=== PATIENT | female | born 1945 | race Caucasian/White ===

== ENCOUNTER 2018-09-12 18:27 | Inpatient (IN) | payer MEDICARE ==
[~2018-09-12] VITALS: Ht 157.5 cm; Wt 116.1 kg
--- OUTSIDE RECORDS SUMMARY | ~2018-09-12 | XMS | Clinical Summary ---
Demographics + + + | Address | [address] | | | [place] [address] | + + + | Home Phone | | + + + | Preferred Language | Unknown | + + + | Marital Status | Unknown | + + + | Episcopal Affiliation | Unknown | + + + | Race | Unknown | + + + | Ethnic Group | Unknown | + + + Author + + + | Organization | Unknown | + + + | Address | Unknown | + + + | Phone | Unavailable | + + + Care Team Providers + +------+ + | Care Biopharmaceutical Rep Name | Role | Phone | + +------+ + PP | Unavailable | + +------+ + Source Comments BEAU is fully live on both [facility] Amb[facility] and [facility] InPatient.[facility] Allergies Not on File Current Medications [...]
--- OUTSIDE RECORDS SUMMARY | ~2018-09-12 | XMS | Clinical Summary ---
Demographics + + + | Address | [address] | | | [place] [address] | + + + | Home Phone | | + + + | Preferred Language | Unknown | + + + | Marital Status | Unknown | + + + | Shinto Affiliation | Unknown | + + + | Race | Unknown | + + + | Ethnic Group | Unknown | + + + Author + + + | Organization | Unknown | + + + | Address | Unknown | + + + | Phone | Unavailable | + + + Care Team Providers + +------+ + | Care Umbrella Mender Name | Role | Phone | + +------+ + PP | Unavailable | + +------+ + Source Comments BEAU is fully live on both [facility] and [facility] InPatient.[facility] Allergies Not on File Current Medications [...]
--- OUTSIDE RECORDS SUMMARY | ~2018-09-12 | XMS | Clinical Summary ---
Demographics + + + | Address | [address] | | | [place] [address] | + + + | Home Phone | | + + + | Preferred Language | Unknown | + + + | Marital Status | Unknown | + + + | Muslim Affiliation | Unknown | + + + | Race | Unknown | + + + | Ethnic Group | Unknown | + + + Author + + + | Organization | Unknown | + + + | Address | Unknown | + + + | Phone | Unavailable | + + + Care Team Providers + +------+ + | Care Before And After School Daycare Worker Name | Role | Phone | + +------+ + PP | Unavailable | + +------+ + Source Comments BEAU is fully live on both [facility] Ambulatory and [facility] InPatient.[facility] Allergies Not on File Current Medications Not [...]
--- OUTSIDE RECORDS SUMMARY | ~2018-09-12 | XMS | Clinical Summary ---
Demographics + + + | Address | [address] | | | [place] [address] | + + + | Home Phone | | + + + | Preferred Language | Unknown | + + + | Marital Status | Unknown | + + + | Adventist Affiliation | Unknown | + + + | Race | Unknown | + + + | Ethnic Group | Unknown | + + + Author + + + | Author | [facility] | + + + | Organization | [facility] | + + + | Address | Unknown | + + + | Phone | Unavailable | + + + Support + + + + + | Name | Relationship | Address | Phone | + + + + + | No,Contact | ECON | [address] | | | | | [place] | | | | | [phone] | | + + + + + Care Team Providers + +------+ + | Care Personal Protection Specialist Name | Role | Phone | + [...] MA - MODA | MA - | [phone] | Medica | | | | | [...] | Self | [birth year] | Home: | [facility] | | | al/Fam | | 1945 | [phone] | [place] | | | [place] | | | [phone] | [phone] | + +--------+ +--------+ + +"
--- OUTSIDE RECORDS SUMMARY | ~2018-09-12 | XMS | Clinical Summary ---
Demographics + + + | Address | [address] | | | [place] [address] | + + + | Home Phone | | + + + | Preferred Language | Unknown | + + + | Marital Status | Unknown | + + + | Taoist Affiliation | Unknown | + + + | Race | Unknown | + + + | Ethnic Group | Unknown | + + + Author + + + | Author | [facility] | + + + | Organization | [facility] | + + + | Address | Unknown | + + + | Phone | Unavailable | + + + Support + + + + + | Name | Relationship | Address | Phone | + + + + + | No,Contact | ECON | [address] | | | | | [place] | | | | | [phone] | | + + + + + Care Team Providers + +------+ + | Care Home Health Travel Pt Name | Role | Phone | + [...] MA - MODA | MA - | [phone] | Medica | | | | | [...] | Self | [birth year] | Home: | [facility] | | | al/Fam | | 1945 | [phone] | [place] | | | [place] | | | [phone] | [phone] | + +--------+ +--------+ + +"
--- OUTSIDE RECORDS SUMMARY | ~2018-09-12 | XMS | Clinical Summary ---
Demographics + + + | Address | [address] | | | [place] [address] | + + + | Home Phone | | + + + | Preferred Language | Unknown | + + + | Marital Status | Unknown | + + + | Anglican Affiliation | Unknown | + + + | Race | Unknown | + + + | Ethnic Group | Unknown | + + + Author + + + | Author | [facility] | + + + | Organization | [facility] | + + + | Address | Unknown | + + + | Phone | Unavailable | + + + Support + + + + + | Name | Relationship | Address | Phone | + + + + + | No,Contact | ECON | [address] | | | | | [place] | | | | | [phone] | | + + + + + Care Team Providers + +------+ + | Care Telegraphic Typewriter Mechanic Name | Role | Phone | + [...] MA - MODA | MA - | [phone] | Medica | | | | | [...] | Self | [birth year] | Home: | [facility] | | | al/Fam | | 1945 | [phone] | [place] | | | [place] | | | [phone] | [phone] | + +--------+ +--------+ + +"
[~2018-09-12 18:27] MED LIST: ADVAIR 500-501 EACH INH; ALLOPURINOL100 MG PO; BACTRIM DS TAB1 EACH PO; CHLORTHALIDONE50 MG PO; HYDROXYZINE PAM25 MG PO; KEFLEX500 MG PO; LEVOTHYROXINE25 MCG PO; MELATONIN5 M2 PO; METOPROLOL TART25 MG PO; OXYBUTYNIN CHLOR5 MG PO; POTASSIUM CHLO10 MEQ PO; PROAIR HFA8.5 GM INH; SENTRY SENIOR1 EAC2 PO; TORSEMIDE10 MG PO
--- NOTE | 2018-09-13 00:30 | NUR ---
PT ARRIVED TO THE UNIT FROM THE ED ON STRETCHER. PT AMBULATED FROM STRETCHER TO HOSPITAL BED IN ROOM. PT ON 2LNC, O2 SAT WNL. PT DENIES SOB OR CHEST PAIN. ISELA BRYANT, ISELA CAPONE, AND QUALITY ASSURANCE CALIBRATOR [place] ALSO IN ROOM HELPING TO ORIENT PT TO ROOM. VSS. IV FLUIDS PRIMED AND HUNG BY ISELA BRYANT AND ESTELITA. THIS RN IN ROOM TO COMPLETE ADMIT.
--- NOTE | 2018-09-13 01:30 | NUR ---
ASSESSMENT COMPLETE, SEE INTERVENTION FOR DETAILED DOCUMENTATION. PT A/O, DENIES PAIN. VSS, 2LNC IN PLACE. PT DENIES SOB OR CHEST PAIN. IV FLUIDS INFUSING PER MD ORDERS, SITE WNL. PT NPO, BOWEL TONES ACTIVE, NO NAUSEA. GONZALEZ CATHETER IN PLACE, CONCENTRATED, ORANGE URINE NOTED. RECENT 350 OUTPUT. PT DENIES FURTHER NEEDS, CALL LIGHT IN REACH.
--- NOTE | 2018-09-13 02:25 | NUR ---
PT AT THIS TIME HAS SOB. HER CRACKLES IN HER BASES HAVE NOW PROGRESSED TO THE MIDDLE LOBE. RR IS IN THE UPPER 20'S -MID 30'S. BNP 3070. MD VALENTINO WAS CALLED AND ORDER FOR 20MG IV LASIX WAS OBTAINED. ALSO HER FLUIDS ARE RUNNING AT KVO AT THIS TIME. WILL CONTINUE TO MONITOR CRACKLES IN LUNGS AND KEEP AN EYE ON HER K+.
--- NOTE | 2018-09-13 02:50 | NUR ---
SCHEDULED ONE TIME DOSE LASIX GIVEN. RR IN LOW TO MID 20'S. PT RESTING IN BED, EYES CLOSED. NO APPARENT DISTRESS NOTED. PT EASILY AWOKEN, BUT QUICKLY WENT BACK TO SLEEP. NO FURTHER NEEDS, CALL LIGHT IN REACH.
--- NOTE | 2018-09-13 04:45 | NUR ---
ASSESSMENT COMPLETE. PT REPORTS MILD SOB, PT REPOSITIONED IN BED WITH HELP FROM ESTELITA WEISS. HOB REMAINS ELEVATED PER MD ORDERS. RR VARIES BETWEEN LOW TO MID 20'S. OCCASIONALY WILL GO INTO UPPER 20'S. ORACLE PROGRAMMER ANALYST AGREED THAT NO DISTRESS WAS NOTED AND THAT CHICHO IS ALREADY AWARE PT'S RR VARIED IN THE ED WELL. PT DENIES CHEST PAIN. IV FLUIDS INFUSING AT 30MLS TKO, CRACKLES NOTED IN BLL AND PARTIALLY IN LEFT MIDDLE LOBE. CATHETER EMPTIED BY THIS RN. NO FURTHER NEEDS, CALL LIGHT IN REACH.
--- NOTE | 2018-09-13 06:00 | NUR ---
PT RESTING IN BED, 2LNC IN PLACE. NO DISTRESS NOTED. EYES CLOSED. CATHETER BAG EMPTIED, I&O'S COLLECTED. ROOM TIDED. CALL LIGHT IN REACH.
--- NOTE | 2018-09-13 06:47 | NUR ---
PT ARRIVED TO THE UNIT FROM THE ED AT 0030. PT IS A/O, NO PAIN THIS SHIFT. VSS, 2LNC IN PLACE. RR IN MID TO UPPER 20'S. CRACKLES IN BLL. ORDERS TO KEEP HOB ELEVATED. D5LR ORIGINALLY ORDERED FOR 85MLS/HR, NOW ORDERED TKO DUE TO COUGHING AND CRACKLES. PT NPO, BOWEL TONES ACTIVE, NO NAUSEA THIS SHIFT. PT VOIDING QS URINE, NO BM. CATHETER IN PLACE. PLAN IS FOR SURGERY. PT USES CALL LIGHT APPROPERIATELY.
--- NOTE | 2018-09-13 07:57 | EKG ---
[facility] [address] [place] [address] Signed Normal sinus rhythm Low voltage QRS Cannot rule out Anteroseptal infarct (cited on or before 15-MAY-2016) Abnormal ECG When compared with ECG of 15-MAY-2016 18:18, Questionable change in initial forces of Anteroseptal leads Confirmed by JAY JAY EDWARDS MD ([id number]) on 09/13/2018 7:57:26 AM Electronically Signed By: JAY JAY EDWARDS MD 09/13/18 0757 PATIENT NAME: MICHELLE MYRICK Electrocardiogram DATE OF : 49 PHYSICIAN: JAY JAY EDWARDS MD REPORT #: [id number] REPORT IS CONFIDENTIAL AND NOT TO BE RELEASED WITHOUT AUTHORIZATION
--- NOTE | 2018-09-13 08:20 | NUR ---
PT ABLE TO BRUSH OWN TEETH WHEN GIVEN SUPPLIES, PT ALSO WASHED HANDS AND FACE WITH WARM WASH CLOTH. PT DENIES PAIN, NAUSEA, AND SOB AT THIS TIME. PT REQUESTS TO HAVE BED PUT INTO SITTING POSITION. VITALS WNL. PT ALERT AND ORIENTED, COOPERATIVE.
--- NOTE | 2018-09-13 10:00 | NUR ---
PT SITTING UP IN BED TALKING ON THE PHONE, DAUGHTER IS AT THE BEDSIDE, AND TV IS ON. PT IS ALERT AND ORIENTED X4, COOPERATIVE.
--- NOTE | 2018-09-13 10:59 | NUR ---
ORDER IN PLACE FOR HOSPITALIST CONSULT, IS AWARE.
--- NOTE | 2018-09-13 12:15 | NUR ---
PATIENT IS WITH STAFF AND FAMILY. IS SCHEDULED FOR OR LATER TODAY. WILL SEE LATER.
--- NOTE | 2018-09-13 14:13 | NUR ---
IV SITES INTACT, NO SWELLING OR REDNESS NOTED, PT DENIES PAIN WITH FLUSH OR INFUSION OF FLUIDS. PT IS ALERT AND ORIENTED X4 SITTING UP IN BED WITH FAMILY AT THE BEDSIDE. PT DENIES PAIN, NAUSEA, AND SOB AT THIS TIME.
--- NOTE | 2018-09-13 14:48 | NUR ---
PT UP TO CHAIR FROM BED WITH TWO PERSON ASSIST. PT AWAKE AND ALERT X4, FULLY COOPERATIVE WITH TRANSFER. PT REPORTS "THAT FEELS MUCH BETTER". PT VITALS WNL. PT DENIES PAIN, NAUSEA, AND SOB AT THIS TIME. ALL LINENS ON BED CHANGED. PT HAS CALL LIGHT WITHIN REACH. PT SANTA ROOM AIR AT THIS TIME O2 SATS REMAIN MID 90'S.
--- NOTE | 2018-09-13 16:03 | NUR ---
PT STILL SITTING UP IN CHAIR, SANTA WELL. TALKING ON THE HER CELL PHONE AND WATCHING TV.
[2018-09-13] MEDS ORDERED: ATENOLOL-CHLOR1 EAC1 PO (17:28)
[2018-09-13] MEDS ORDERED: ADVAIR 250-501 EACH INH (17:29)
--- NOTE | 2018-09-13 17:30 | NUR ---
PT TRANSFERED BACK TO BED FROM CHAIR WITH TWO PERSON ASSIST. PT IS STEADY ON FEET, BUT HAS DIFFICULTY STANDING UP FROM CHAIR. MELL CARE AND GONZALEZ CATH CARE DONE. PARTIAL BEDBATH DONE NEW GOWN PLACED. PT HAS SOME SLIGHTLY RED AREAS UNDER BREASTS AND SKIN FOLDS, NYSTATIN ORDERED PER .
[2018-09-13] MEDS ORDERED: VITAMIN D5000 UNIT PO (18:04)
[2018-09-13] MEDS ORDERED: ZYRTEC10 MG PO (18:04)
--- NOTE | 2018-09-13 18:05 | NUR ---
MED REC COMPLETE
--- NOTE | 2018-09-13 18:06 | NUR ---
PT SITTING UP IN BED EATING CLEAR LIQUID TRAY AT THIS TIME.
--- NOTE | 2018-09-13 20:00 | NUR ---
RECEIVED REPORTA AT 1900, FOUND PT IN BED RESTING AT FIRST THEN TALKING ON THE PHONE WITH FAMILY. PT DENIED SOB EVEN THOUGH CRACKLES ARE STILL PRESENT BILATERALLY IN THE BASES. PT DENIED ABD PAIN. ABD SOUNDS ARE PRESENT. ABD IS SOFT TO TOUCH. URINE OUTPUT IS ADEQUATE, V/S OVERALL ARE ACCEPTABLE. NO NEW CONCERNS NOTED AT THIS TIME.
--- NOTE | 2018-09-13 22:00 | NUR ---
PT IS WATCHING TV. NO CHANGE IN PT STATUS SINCE LAST NOTE. NO NEW CONCERNS NOTED.
--- NOTE | 2018-09-13 23:40 | NUR ---
PAIN IS BETTER STATED BY PT, PT HAD A HEADACHE EARLIER FOR WHICH SHE RECEIVED 650MG PO PRN TYLENOL. PT ALSO SIGNED CONSENT FOR SX. CONSENT IS ON CHART. NO NEW CONCERNS NOTED SO FAR.
--- NOTE | 2018-09-14 | NUR ---
PT AT THIS TIME IS NPO. LOWER LOBES STILL HAVE CRACKLES PRESENT. UPPER LOBES ARE CLEAR. NO CHANGES IN ASSESSMENT NOTED OVERALL. PAIN IS WELL CONTROLLED WITH PRN TYLENOL.
--- NOTE | 2018-09-14 01:44 | NUR ---
PT IS SLEEPING AT THIS TIME. NO NEW CONCERNS NOTED.
--- NOTE | 2018-09-14 03:05 | NUR ---
PT IS SLEEPING AT THIS TIME. URINE OUTPUT FOR THE LAST HOUR WAS 50ML. I DID INCREASE KVO TO 85ML/HR PER ORDER. WILL WATCH [place] FOR INCREASE IN CRACKLES IN LUNG AND PT HAVING SOB.
--- NOTE | 2018-09-14 04:00 | NUR ---
PT WAS WOKEN UP FOR ASSESSMENT. ALL LOBES HAVE SOME EXPIRATORY WHEEZING PRESENT WITH THE LEFT LOWER LOBE HAVING SOME CRACKLES PRESENT. PT SO FAR SEEMS TO TOLERATE THE INCREASE IN IV FLUID RATE. WILL CONTINUE TO MONITOR. URINE OUTPUT FROM [id number] WAS 50 ML. OTHERWISE THERE ARE NO CHANGES IN STATUS FOR THIS PT. V/S ARE WDL WITH THE OCCASIONAL RR IN THE LOW 20'S.
--- NOTE | 2018-09-14 05:17 | NUR ---
PT IS AWAKE IN BED WATCHING TV. PT IS STILL TOLERATING IV FLUIDS SO FAR. NO NEW CONCERNS NOTED AT THIS TIME.
--- NOTE | 2018-09-14 06:03 | NUR ---
AT START OF SHIFT URINE OUTPUT WAS AMPLE. PT WAS MADE NPO AT 0000. AFTER THAT HER URINE OUTPUT DROPPED TO 50ML/HR. I DID INCREASE HER IV FLUIDS TO 85ML/HR AND SO FAR PT HAS BEEN TOLERATING THAT WITH REGARDS TO SOB AND CRACKLES IN HER LUNGS. I WILL CONTINUE TO MONITOR HER RESPIRATORY STATUS. PT ALSO HAD A HEADACHE AT START OF SHIFT. PRN TYLENOL WAS ADEQUATE FOR PAIN RELIEF. V/S OVERALL HAVE BEEN WDL WITH HER RR IN THE 20'S FOR THE MOST PART. ABD SOUNDS ARE PRESENT AND PT DENIES ANY ABD PAIN. NO PERIPHERAL EDEMA NOTED.
--- NOTE | 2018-09-14 08:00 | NUR ---
ASESSMENT DONE. TALKED WITH PATIENT ABOUT PLAN OF CARE FOR DAY AND PRE-OP AND POST OP CARE, IS UNDERSTANDING. IVF PATENT, GONZALEZ CATH PATENT BRIGHT YELLOW URINE NOTED. DENIES PAIN.
--- NOTE | 2018-09-14 09:00 | NUR ---
CHLORHEXIDINE SPONGE BATH GIVEN. TOLERATED WELL.
--- NOTE | 2018-09-14 10:29 | HP ---
[facility] [address], [place] [address] Signed ADMISSION DATE: 09/12/2018 REASON FOR ADMISSION: Probable sepsis related to cholecystitis and gallstones. HISTORY OF PRESENT ILLNESS: This morbidly obese 73-year-old white woman, who lives in [place] from the past 3 years, previously from [place], [place]. She moved up here because "the rent was low" and some family members were here. She presented to the emergency room having had 2 days of poor oral intake and not feeling well. She had no specific pain or other problem. She was evaluated by Dr. Brumfield, whose evaluation showed her to have elevated liver enzymes and lactic acid level elevated. Lactic acid was 2.6. Bilirubin was 5.6, AST 197, ALT 147, and alkaline phosphatase 330. Strangely, she had no abdominal tenderness particularly. She has a white count of 10.9 with hematocrit of 34.8 and a platelet count of 230,000. In addition to her morbid obesity, she is known to have COPD with home oxygen requirement. Upon consultation earlier in the evening with me, a CT scan was recommended of both chest and abdomen, though an ultrasound was performed, which had shown gallstones with some thickening of the gallbladder wall and some heterogeneous liver parenchyma without focal mass. The interpretation of the ultrasound was "indeterminate" for cholecystitis and on that basis, CT scan was performed. The CT scan that was performed did confirm an edematous gallbladder wall with thickening and mild pericholecystic fluid. The gallstones were not seen. A vague 4.4 cm hypo-attenuated area of the right hepatic lobe adjacent to the gallbladder was noted, uncertain as to the significance for possibility of early inflammatory or even abscess formation. The patient did have a hypotensive episode with systolic pressure of 97, previously normal and has been non-tachycardic. Repeat lactic acid level was found to be normal. SOCIAL HISTORY: She is accompanied by her daughter. There are other family members in the town as well. REVIEW OF SYSTEMS: Electronically Signed By: LIANNA VALENTINO MD 09/14/18 1029 PATIENT NAME: MICHELLE MYRICK HISTORY AND PHYSICAL DATE OF : 49 REPORT #: [id number] PHYSICIAN: LIANNA VALENTINO MD PCP: NO PRIMARY CARE PHYSICIAN REPORT IS CONFIDENTIAL AND NOT TO BE RELEASED WITHOUT AUTHORIZATION [facility] [address] [place] [id number] Signed She denies any shortness of breath or chest pain. She has no complaints of abdominal pain. She does not feel particularly short of breath at this time. She prefers it had to be elevated. PHYSICAL EXAMINATION: GENERAL: This is a morbidly obese, elderly woman, 73 years of age. She is impressively plethoric in her abdomen. She is not tachypneic. She is mentating well. She appears mildly jaundiced. Trachea is midline. CHEST: Shows normal respiratory excursion without tachypnea. HEART: Regular. ABDOMEN: Massively obese. There are areas of excoriation of her abdominal wall. EXTREMITIES: Lower extremities show some excoriation as well and detect no clinical evidence of deep venous thrombosis. LABORATORY STUDIES: Show white count of 10.9, hematocrit of 34.8, and platelets of 230,000. Chem profile notable for an elevated creatinine of 1.44, glucose 115, original lactic acid 2.6, repeat 0.7, and bilirubin 5.6. Liver enzymes elevated as previously noted. Lipase 6. Influenza type A and B swab were negative. ASSESSMENT AND PLAN: Strangely, the patient does not have abdominal tenderness, but does have findings suggestive of an infectious process and most likely this represents acute calculous cholecystitis despite her lack of tenderness on examination. She was admitted to the intensive care unit for further management and monitoring given her episode of hypotension. That has largely resolved. Her pressure now systolic 146. We discussed the pathophysiology of her problem. We will review further the concept of cholecystectomy. Right now, additional fluid and monitoring is necessary as well as broad-spectrum antibiotics. Review of her medications confirms that she takes albuterol, allopurinol, chlorthalidone, fluticasone, Synthroid, metoprolol, oxybutynin, and torsemide. She has undergone a 2 L crystalloid fluid bolus, which has improved her blood pressure. She likely will have a consultation with the hospitalist tomorrow as well. MD SONIYA Aviles/MODL Electronically Signed By: LIANNA VALENTINO MD 09/14/18 1029 PATIENT NAME: MICHELLE MYRICK HISTORY AND PHYSICAL DATE OF : 49 REPORT #: [id number] PHYSICIAN: LIANNA VALENTINO MD PCP: NO PRIMARY CARE PHYSICIAN REPORT IS CONFIDENTIAL AND NOT TO BE RELEASED WITHOUT AUTHORIZATION [address] [address] Signed /[id number] cc: MD Deuce Sarah DO Copies: HORACIO BRUMFIELD MD, ARIAN DO ~ Electronically Signed By: LIANNA VALENTINO MD 09/14/18 1029 PATIENT NAME: MICHELLE MYRICK HISTORY AND PHYSICAL DATE OF : 49 REPORT #: [id number] PHYSICIAN: LIANNA VALENTINO MD PCP: NO PRIMARY CARE PHYSICIAN REPORT IS CONFIDENTIAL AND NOT TO BE RELEASED WITHOUT AUTHORIZATION
--- NOTE | 2018-09-14 10:30 | NUR ---
TO OR VIA BED.
--- NOTE | 2018-09-14 12:50 | NUR ---
RETURN TO CCU FROM PACU DX S/P LAB EXPLORATION BIOPSY,OF LIVER AND POSSIBLE GALLBLADDER. UPON ENTERING ROOM 128, PATIENT IS ABLE TO ANSWER SOME QUESTION, HR-154. PATIENT DID RECIEVE ESMOLOL 10 MG IN PACU, REPEATED UPON ARRIVAL TO CCU. HR SLOWS DOWN BRIEFLY THEN TO SVT HR 150'S. DARYNDERS RECIEVED TO HANG ESMOLOL GTT TITRATE ACCORDING TO ORDERS. O2 AT 2 L NC. C/O SLIGHT SOB, O2 SAT 95%. PATIENT C/O FRAGOSO AND FEELING COLD. SEVERAL WARM BLANKETS GIVEN. GONZALEZ CATH PATENT WITH SMALL AMT OF URINE NOTED.
--- NOTE | 2018-09-14 12:56 | NUR ---
ORDERS TO GIVE ADENOCARD 6 MG IV, ATTEMPTED TO GIVE THIS MEDICATION, UNABLE RIJ KINKED. HERE AND REDRESSED SITE. AFTER RIJ REDRESSED ADENOCARD 6 MG IV REPEATED.
--- NOTE | 2018-09-14 14:00 | NUR ---
LASIX 40 MG IV GIVEN PER ORDERS.
--- NOTE | 2018-09-14 14:11 | NUR ---
DR. VALENTINO UPDATED ON PATIENT CONDITION, NO FUTHER OREDERS. DR. VALENTINO TALKING WITH PATIENT DAUGHTER VIA PHONE. PATIENT IS RESTFUL, ESMOLOL GTT DECREASED TO 25 MCK/KG/MIN. PATIENT C/O RIGHT NECK PAIN R/T RIJ SITE.
--- NOTE | 2018-09-14 14:11 | NUR ---
09/14/18 1411 MiladyYaritza 1210- PT ARRIVES TO PACU. PT HAS EYES OPEN AND IS ABLE TO FOLLOW COMMANDS. RESP EVEN. PT DENIES ANY PAIN, OR NAUSEA. PT HAS HX OF COPD AND USES 2L VIA NC HOME O2 CHRONICALLY. PT IS CURRENTLY ON 8L VIA MASK WITH AN OXYGEN SAT AT 100% ON THIS. ROSARIO MARCUS AT THE BEDSIDE AND WANTS XOPENOX GIVEN. 1211- XOPENOX GIVEN. 1213- DR. VALENTINO NOTIFIED THAT THE DRESSING IS COMING OFF OF THE CENTRAL LINE TO THE RIGHT NECK WITH A SMALL AMOUNT OF DRAINAGE AROUND THE SITE. DR. VALENTINO WANTS CHEST XRAY COMPLETED AND THEN A DRESSING CHANGE COMPLETED. IMAGING CALLED FOR CHEST XRAY. 1216- PT REPORTS SHE THINKS THE BREATHING TREATMENT IS HELPING AND STATES SHE IS BREATHING EASIER. OXYGEN SAT REMAINS HIGH 90'S TO 100% ON 8L VIA MASK. 1220- OXYGEN TURNED DOWN TO 6L VIA MASK. 1226- IMAGING IN THE ROOM TO DO CHEST XRAY. PT SAT UP IN BED. TOLERATED WELL. 1227- XRAY COMPLETED. AFTER XRAY BOARD WAS REMOVED AND PT'S HEAD OF THE BED WAS RECLINED TO ABOUT 60 DEGREES THE PT'S HR INCREASED TO THE 150'S-160'S. HR ON THE MONITOR APPEARS TO BE REGULAR IN NATURE. PT ENCOURAGED TO TAKE A COUPLE DEEP BREATHS WITH NO CHANGE IN HR. PT DENIES CHEST PAIN, SOB, DIZZINESS, DIAPHORESIS, PALPITATIONS, OR OTHER SYMPTOMS. DR. VALENTINO IS IN THE RECOVERY ROOM AND AWARE OF THIS. 1229- AMRIT FERNANDEZ CRNA CONTACTED BY WILDER MCKEON RN. ORDERED TO GIVE ESOMOL AND MAY REPEAT IN 5 MINUTES IF NECESSARY. 1230- ATTEMPTED TO RECEIVE ESOMOL OUT OF PACU PYXIS. THIS MEDICATION IS NOT IN THIS PYXIS, WILDER MCKEON RN IS RECEIVING THE MEDICATION FROM ANOTHER PYXIS. 1232- RT CALLED TO THE BEDSIDE. 1233- RT AT THE BEDSIDE. 1235- PT'S HR ATTEMPTS TO CONVERT ON IT'S OWN BUT INCREASES BACK TO THE 150'S-160'S. 1237- ESOMOL 10 MG GIVEN IV. 1238- PT'S HR DECREASED TO 98 AND IS IN A NSR. HR THEN INCREASES BACK TO THE 150'S. DR. VALENTINO ON THE PHONE WITH DR. EDWARDS. 1241- DR. EDWARDS WANTS TO SEE THE PT IN CCU. DR. VALENTINO WANTS PT TAKEN TO CCU. PT REMAINS ALERT AND ORIENTED. PT CONTINUES TO DENY ANY CHEST PAIN, SOB, DIAPHORESIS, DIZZINESS, NAUSEA, OR OTHER SYMPTOMS. PT WAS TRANSPORTED ON THE MONITOR WITH RT, DR. VALENTINO, AND WILDER MCKEON, ISELA AT THE BEDSIDE. 1245- PT'S HR REMAINS IN THE 150'S. PT GIVEN ANOTHER DOSE OF ESOMOL WITH DR. VALENTINO AT THE BEDSIDE. PT'S HR DECREASES SLIGHTLY TO THE 110'S, BUT INCREASES BACK TO THE 150'S RIGHT AWAY. 6446- ISELA LOVELACE AT THE BEDSIDE. REPORT GIVEN AND CARE HANDED OVER TO HER. DR. EDWARDS AT THE BEDSIDE. PT REMAINS ASYMPTOMATIC AND ALERT.
--- NOTE | 2018-09-14 14:47 | NUR ---
MORPHINE 2 MG IV GIVEN FOR COMFORT AND FRAGOSO.
--- NOTE | 2018-09-14 16:00 | NUR ---
ASSESSMENT DONE. EANS PAIN AT THIS TIME. LAB SITE W/O DISCHARGE, STERI STRIPS OVER SITE. PATIENT STATES SHE FEELS BETTER NOW.
--- NOTE | 2018-09-14 16:56 | NUR ---
TAKING SIP OF CLEAR LIQUIDS, DENIES NAUSEA. IS AWAKE. VISITING WITH FAMILY MEMBERS.
--- NOTE | 2018-09-14 17:30 | NUR ---
ESMOLOL GTT OFF. TOOK CLEAR LIQUIDS FAIR.
--- NOTE | 2018-09-14 18:45 | NUR ---
UPDATE TO DR. EDWARDS AND DR. GE VIA PHONE. ORDERS RECIEVED. TYLENOL 650 MG PO GIVEN, ATENOLOL 50 MG PO GIVEN. IVF HUNG AT 75 ML/HR.
--- NOTE | 2018-09-14 19:29 | NUR ---
REPORT TO NEXT SHIFT.
--- NOTE | 2018-09-14 19:44 | NUR ---
REPORT RC'D FROM DAY SHIFT NURSE [place]. REPORTS PT OFF ESMOLOL GTT AND TOLERATING WELL. PT TALKING ON THE PHONE AND WATCHING TV.
--- NOTE | 2018-09-14 20:30 | NUR ---
AAOX4 AND RESPONDING APPROPRIATELY. SINUS RHYTHM ON MONITOR, ESMOLOL GTT DC'D AT 1730. EXPIRATORY WHEEZE THROUGHOUT ALL LUNG OQUENDO, BUL TIGHT, BLL DIM, NEB TREATMENT GIVEN, PT STATES IMPROVEMENT. SURGICAL SITES COVERED WITH STERI STRIPS, SMALL AMOUNT OF CRUSTING, NO REDNESS, EDEMA, OR WARMTH. BOWEL TONES ACTIVE X4, DENIES NAUSEA. GONZALEZ CATH IN PLACE DRAINING [place] URINE, CATH CARE COMPLETED. SCD IN PLACE. PT C/O 12/25 GENERALIZED PAIN "SINCE SURGERY," 2 MG IV MORPHINE GIVEN, REPORTS IMPROVEMENT IN PAIN. PM CARE COMPLETED. NYSTATIN CREAM AND POWDER APPLIED TO REDDENED AREAS. UPDATED PLAN OF CARE. EDUCATION PROVIDED ON SAFETY, FALL PREVENTION, AND PAIN MANAGEMENT. PT VERBALIZED UNDERSTANDING AND AGREEABLE. DENIES OTHER NEEDS. CALL LIGHT WITHIN REACH.
--- NOTE | 2018-09-14 21:30 | NUR ---
PT REQUESTING PRN NEB FOR MILD SO, R/T IN ROOM TO ADMINISTER. NO INCREASED WOB OR RR NOTED. CENTERAL LINE INFUSING D5LR @85 ML/HR, OTHER LUMENS HEPARIN LOCKED AT THIS TIME. WILL CONTINUE TO MONITOR.
--- NOTE | 2018-09-14 22:31 | NUR ---
PT RESTING IN BED WITH EYES CLOSED, RESPIRATIONS EVEN AND UNLABORED, NO ACUTE DISTRESS NOTED. 99% ON 2L NC, RR 18, HR 76.
--- NOTE | 2018-09-15 | NUR ---
PT DROWSY BUT AWAKENS EASILY. SINUS RHYTHM ON MONITOR WITH HR IN 70'S. BUL CLEAR AND BLL DIM, RR 18, 98% ON 1L. SURGICAL SITES UNCHANGED. BOWEL TONES ACTIVE. GONZALEZ CATH DRAINING OSWALDO URINE. SCD IN PLACE. IV SITE PATENT AND WNL. RIJ INFUSING D5LR @ 85 MLS/HR, OTHER LUMENS REMAIN HEPARIN LOCKED, DRESSING INTACT.
--- NOTE | 2018-09-15 02:37 | NUR ---
URINE OUTPUT NOTED TO DECREASE, TOTAL 4 HOUR OUTPUT 75 MLS. PER WRITTEN INSTRUCTIONS TO NOTIFY PROVIDER FOR OUTPUT LESS THAN 150 MLS IN 4 HOURS, DR. EDWARDS NOTIFIED. NEW ORDER FOR 20 MG IV LASIX ONCE, READ BACK AND VERIFIED.
--- NOTE | 2018-09-15 03:12 | NUR ---
LASIX GIVEN. PT REQUESTING WARM BLANKET, PROVIDED.
--- NOTE | 2018-09-15 04:00 | NUR ---
DROWSY BUT AWAKENS EASILY. DENIES PAIN. DENIES SOB. EXPIRATORY WHEEZE IN RUL, ISABELLA CLEAR, CRACKLES TO BLL. SINUS RHYTHM WITH HR IN 60'S. INCREASED URINE OUTPUT AFTER LASIX DOSE.
--- NOTE | 2018-09-15 05:35 | NUR ---
PT REQUESTING LOTION FOR BACK, APPLIED. PT REPOSITIONED AND ASSESSED FOR PAIN. DENIES ADDITIONAL NEEDS. CALL LIGHT WITHIN REACH.
--- NOTE | 2018-09-15 06:25 | NUR ---
PT RESTED FOR MOST OF NIGHT WITH MINIMAL INTERVENTIONS NEEDED. C/O OF GENERALIZED PAIN AT BEGINNING OF SHIFT WELL MANAGED WITH SINGLE DOSE OF 2MG IV MORPHINE, PT DENIED NEED FOR PAIN MEDICATION AFTER DOSE. HR HAS BEEN WELL MANAGED SINCE DC OF ESMOLOL GTT, HR 60-70'S WITH NO SVT. CRACKLES TO BLL, NEBS GIVEN, OXYGEN SATURATION 99-100% ON 1L, RR 18-20. TOLERATING CLEAR LIQUIDS, NO NAUSEA, BOWEL TONES ACTIVE. SURGICAL SITES UNCHANGED, STERI STRIPS IN PLACE WITH DRY DRAINAGE. URINE OUTPUT DECLINED MID SHIFT, 20 MG IV LASIX GIVEN, LAST 4 HOUR URINE OUTPUT 350 MLS. CENTRAL LINE PATENT, 2 LUMENS HEPARIN LOCKED, D5LR INFUSING AT 85 MLS. C/O OF CHRONIC GENERALIZED ITCHING CONTINUES, LOTION APPLIED AND PT REPOSITIONED FREQUENTLY.
--- NOTE | 2018-09-15 07:30 | NUR ---
REPORT RECIEVED. IS SLEEPING, NO DISTRESS NOTED.
--- NOTE | 2018-09-15 08:00 | NUR ---
IS VERY DROWSY. ASSESSMENT DONE.NEB TREATMENT GIVEN. GONZALEZ CATH PATENT WITH YELLOW URINE NOTED. IVF PATENT TO [facility]. SCD'S ON. LAP SITES WITH STERI STIPS INTACT. NO DRAINAGE NOTED. DENIES PAIN. TALKED WITH PATIENT ABOUT PLAN OF CARE FOR DAY.
--- NOTE | 2018-09-15 08:30 | NUR ---
DR. EDWARDS HERE TO SEE PATIENT. NO FUTHER ORDERS AT THIS TIME.
--- NOTE | 2018-09-15 09:00 | NUR ---
SITTING UP IN BED TO TAKE CLEAR LIQ DIET. DENIES NAUSEA.
--- NOTE | 2018-09-15 09:50 | NUR ---
MAG RIDER HUNG. PLAN TO GIVE SHOWER AFTER MAG RIDER INFUSED.
--- NOTE | 2018-09-15 10:30 | NUR ---
TO SHOWER VIA SHOWER CHAIR.
--- NOTE | 2018-09-15 10:50 | NUR ---
TOLERATED SHOWER FAIR, C/O SHORTNESS OF BREATH, REQUESTING NEB TREATMENT. RESP THERAPY NOTIFIED. TO CHAIR AFTER SHOWER.
--- NOTE | 2018-09-15 11:00 | NUR ---
NEB TREATMENT GIVEN PER RT. PATIENT DAUGHTER IN ROOM.
--- NOTE | 2018-09-15 12:00 | NUR ---
REFUSING CLEAR LIQ LUNCH AT THIS TIME.
--- NOTE | 2018-09-15 12:29 | NUR ---
NO CHANGES REMAINS IN CHAIR, DAUGHTER IN ROOM.
--- NOTE | 2018-09-15 12:49 | OR ---
[facility] [address], [place] [address] Signed DATE OF OPERATION: 09/14/2018 SURGEON: Lianna Valentino MD PREOPERATIVE DIAGNOSES: 1. Morbid obesity. 2. Recent sepsis and dilated gallbladder with stones. 3. Anemia. 4. Poor peripheral access. POSTOPERATIVE DIAGNOSES: 1. Possible metastatic disease to the liver and region of gallbladder with inflammatory neoplastic process in region of gallbladder vs primary gallbladder cancer with regional metastasis. 2. likeyly malignant lesions of right lobe liver. PROCEDURES: 1. Right internal jugular central venous catheterization. 2. Laparoscopy with laparoscopic liver biopsy x2 lesions, lateral right lobe of liver and also area of gallbladder site ANESTHESIA: General endotracheal -- Laure Casillas CRNA. INDICATION: This very morbidly obese 73-year-old white woman lives in [place] and has for the past 3 years. She presented emergency room with two days of poor oral intake and not feeling well. She had no specific area of pain, however. She was evaluated by Dr. Brumfield. His evaluation showed her to have elevated liver enzymes and a lactic acid level that was elevated at 2.6, and her bilirubin was 5.6, AST 197, ALT 147, alkaline phosphatase 330. Strangely, she had no abdominal tenderness particularly. She had no complaints of pain or clinical clue to her sense of mailaise. She is not diabetic. White count was 10.9 with hematocrit of 34.8, and platelet count 230,000. She does have advanced chronic obstructive pulmonary disease with home oxygen requirement. A CT scan was obtained after gallbladder ultrasound showed some gallstones and thickening of the gallbladder wall with heterogeneous liver parenchyma, but without focal mass. Interpretation of the ultrasound was "indeterminate" for cholecystitis and on that basis, a CT scan was performed of both chest and abdomen. CT did confirm an Electronically Signed By: LIANNA VALENTINO MD 09/15/18 1249 PATIENT NAME: MICHELLE MYRICK OPERATIVE REPORT DATE OF : 49 REPORT #: [id number] PHYSICIAN: LIANNA VALENTINO MD PCP: NO PRIMARY CARE PHYSICIAN REPORT IS CONFIDENTIAL AND NOT TO BE RELEASED WITHOUT AUTHORIZATION [facility] [address], [place] [address] Signed edematous gallbladder wall with thickening and some pericholecystic fluid. The gallstones were not visualized on CT. A vague 4.4 cm hypoattenuating area of the right hepatic lobe adjacent to the gallbladder was noted, described as possible " abscess". I thought it unlikey considering her clinic appearance. The patient did have an episode of hypotension in the emergency room requiring fluid resuscitation. She was begun on antibiotics, transferred to the intensive care unit where she has been managed more fully. She has recovered essentially all of her hemodynamic parameters. Her hematocrit is now 26. She has had no overt bleeding, however. She has been made ready now for cholecystectomy and possible common duct exploration depending on clinical findings. A laparoscopic approach is anticipated though given her significant obesity and uncertainty as regards the level of her inflammation, she may require an open procedure. She and her son and daughter who attend to understand this. FINDINGS: She had poor peripheral access. On that basis, right internal jugular catheter was placed. Upon laparoscopy, there was no evidence of ascites or carcinomatosis, but there were lesions highly suspicious for metastatic or primary malignancy of the liver, particularly the right lobe. Some were separate from the area of the gallbladder fossa, one contiguous with it. The gallbladder itself was not visualized, but the area in question was markedly inflamed. Whether this was a desmoplastic response to tumor or to actual cholecystitis is uncertain. Under the circumstances of need for conversion to open operation and mindful of the possibility that this represents primary gallbladder cancer with local and regional metastatic disease, connversion to open operation was not undertaken at this time, but biopsies of the liver lesions was undertaken. DESCRIPTION OF PROCEDURE: The patient was brought to the operating room, given a general endotracheal anesthetic. Attempts by the senior bioinformatics scientist to place an additional IV were unsuccessful due to poor peripheral access. On that basis, the right internal jugular central venous catheter was planned. I had discussed this with the family and the patient prior to surgery. The neck was turned to the left and the right neck and subclavian areas bilaterally prepared with a chlorhexidine solution and draped sterilely. Using a Seldinger technique on 1st pass, the right internal jugular vein was easily cannulated showing dark nonpulsatile blood. A flexible J-wire was passed down the needle without problem. Ectopy was noted on the EKG. The wire was withdrawn a bit. The site was incised with an #11 blade and using the Arrow Blue Tip blue dilator, dilation gently undertaken. The previously inspected and irrigated Arrow Blue Tip triple-lumen catheter was passed over the wire without problem. Aspiration on Electronically Signed By: LIANNA VALENTINO MD 09/15/18 1249 PATIENT NAME: MICHELLE MYRICK OPERATIVE REPORT DATE OF : 49 REPORT #: [id number] PHYSICIAN: LIANNA VALENTINO MD PCP: NO PRIMARY CARE PHYSICIAN REPORT IS CONFIDENTIAL AND NOT TO BE RELEASED WITHOUT AUTHORIZATION [address] [address] Signed the distal port showed nonpulsatile bleeding. The catheter was withdrawn a bit and a gentle curl placed and secured to the skin with the enclosed collar device. An anti-infective disk was applied as was a SorbaView dressing. Plans were then made for operation. She had a very large and doughy abdominal pannus. This was prepared after evacuation of her umbilical site of considerable amount of debris. Once complete preparation was undertaken, sterile drapes were placed. Mindful as an attempt for laparoscopic cholecystectomy and common duct exploration, a supraumbilical incision was made. Dissection carried through the thick abdominal pannus. Hemostats were used to grab the fascia, which elevated close to the surface allowing for incision of the midline fascia. The peritoneal cavity was entered and #0 Vicryl sutures used on the fascial edges for closure later. Using a balloon type Kendall cannula, pneumoperitoneum was achieved to a level of 14 mmHg of carbon dioxide gas. Intraabdominal inspection showed no sign of ascites or carcinomatosis. Examination of the upper abdomen showed the liver to have at least three lesions in the right lobe that looked highly suspicious for metastatic disease rather than abscess. In the region of the gallbladder, itself was marked an inflammatory cicatrix with a neoplastic lesion on the edge of the liver likely contiguous with the gallbladder. A 10 mm epigastric port was placed to allow manipulation of this area. The gallbladder could not be visualized. Examination of the left lateral segment of liver showed no sign of metastatic lesions. The right lobe showed no other abnormalities. It was clear that if operative intervention would be undertaken on the gallbladder, it would require open procedure. It was quite impossible from a laparoscopic approach. Mindful that the lesions of the liver may portend an incurable prognosis, particularly if this represented a gallbladder carcinoma. It was deemed most advisable to simply provide a tissue diagnosis by biopsy. Under direct visualization of the right upper abdomen, a 14 g biopty gun device was used to biopsy right lobe of liver lesions as well as the one directly adjacent to the gallbladder fossa. These showed very good specimens and highly suspicious for malignancy. Bleeding was controlled with electrocautery without problem. Palpation with the laparoscopic instruments demonstrated in the region of the gallbladder fossa, a bulky firm mass, not a soft one as might be expected with hepatic abscess. Irrigation was undertaken and the trocars removed under direct visualization showing no sign of bleeding. The supraumbilical fascial incision was reapproximated with interrupted #0 Vicryl suture. Irrigation was undertaken. Skin closed with interrupted 3-0 Vicryl. Steri-Strips were applied. It is anticipated that a chest x-ray to be performed in recovery room as regards to the Electronically Signed By: LIANNA VALENTINO MD 09/15/18 1249 PATIENT NAME: MICHELLE MYRICK OPERATIVE REPORT DATE OF : 49 REPORT #: [id number] PHYSICIAN: LIANNA VALENTINO MD PCP: NO PRIMARY CARE PHYSICIAN REPORT IS CONFIDENTIAL AND NOT TO BE RELEASED WITHOUT AUTHORIZATION [address] [address] Signed right internal jugular central venous catheter. Additionally, colonoscopy might be considered considering she is baseline anemic and without prior history of colonoscopy and now with what appears to be either metastatic or locally metastatic adenocarcinoma with pathology pending. Lianna Valentino MD JM/MODL /[id number] cc: Yousuf Brumfield MD Copies: YOUSUF BRUMFIELD MD ~ Electronically Signed By: LIANNA VALENTINO MD 09/15/18 1249 PATIENT NAME: MICHELLE MYRICK OPERATIVE REPORT DATE OF : 49 REPORT #: [id number] PHYSICIAN: LIANNA VALENTINO MD PCP: NO PRIMARY CARE PHYSICIAN REPORT IS CONFIDENTIAL AND NOT TO BE RELEASED WITHOUT AUTHORIZATION
--- NOTE | 2018-09-15 13:00 | NUR ---
DR. VALENTINO HERE TO SEE PATIENT, HE TALKED WITH PATIENT ABOUT EXP LAP PROCEDURE AND BIOPSY. PATIENT IS NOW AWARE OF POSSIBLE CANCER DX. PLAN ON COLONOSCOPY FOR TOMORROW.
--- NOTE | 2018-09-15 13:10 | NUR ---
DR. VALENTINO IS AWARE OF BP BEING ON THE LOW SIDE AND THAT THE CHLORTHALIDONE/ ATENOLOL WAS HELD DUE TO MAP < 70.
--- NOTE | 2018-09-15 14:22 | NUR ---
MIRALAX BOWEL PREP STARTED. ENC TO TAKE PREP BY 1900 THIS EVENING. PATIENT WILL NEED MUCH ENCOURAGEMENT TO TAKE PREP.
--- NOTE | 2018-09-15 15:40 | NUR ---
SEVERAL FAMILY MEMBERS IN ROOM. PATIENT DENIES PROBLEMS. CONTINUE TO TAKE BOWEL PREP.
--- NOTE | 2018-09-15 17:30 | NUR ---
ATTEMPTED TO TRANSFER PATIENT TO COMMODE FROM CHAIR. PATIENT IS UNABLE TO GET OUT OF CHAIR WITH ASSIST OF 2 STAFF. OVERHEAD LIFT USED TO TRANSFER TO BED. PATIENT DENIES NEED FOR BED SHAH AT THIS TIME.
--- NOTE | 2018-09-15 17:40 | NUR ---
DR. MILLER AND DR. VALENTINO UPDATED ON PATIENT U/O OF 70 ML OVER LAST HR. ORDERS RECIEVED FROM DR. VALENTINO TO BOLUS WITH 500 ML LR. PATIENT HAS APPROX 1/2 GLASS OF BOWEL PREP TO TAKE BEFORE GONE.
--- NOTE | 2018-09-15 18:14 | NUR ---
BOWEL PREP COMPLETE. LR BOLUS 500 ML OVER 1 HR HUNG.
--- NOTE | 2018-09-15 19:00 | NUR ---
BOLUS COMPLETE, REPORT TO NEXT SHIFT.
--- NOTE | 2018-09-15 19:51 | NUR ---
REPORT RC'D FROM DAY SHIFT NURSE [place]. REPORTS PT UP TO CHAIR FOR MOST OF DAY, BOWEL PREP COMPLETED AT 1830, PAIN WELL CONTROLLED, DECREASED URINE OUTPUT, 500 ML BOLUS GIVEN. IN ROOM TO ASSIST PT OFF BED SHAH AND PLACE CLEAN LINENS, TOLERATED WELL. DENIES OTHER NEEDS. FULL ASSESSMENT TO BE COMPLETED.
--- NOTE | 2018-09-15 20:30 | NUR ---
AAOX4 AND RESPONDING APPROPRIATELY. SINUS RHYTHM ON MONITOR WITH HEART RATE IN 60'S. BUL CLEAR, FINE CRACKLES TO BLL, 100% ON 1L, RR 18. BOWEL TONES ACTIVE, BOWEL PREP COMPLETE, BM X2, DENIES NAUSEA. LAP SITES COVERED WITH STEI SRIPS WITH SMALL AMOUNT OF CRUSTING, NO REDNESS, EDEMA, OR DRAINAGE. DENIES PAIN. GONZALEZ CATH IN PLACE DRAINGING OSWALDO URINE, 500 ML LR BOLUS COMPLETED FOR DECREASED OUTPUT, CONTINUE TO MONITOR. SCD IN PLACE. RIJ INFUSING D5LR AT 85 MLS, ALL LUMENS FLUSHED, PATENT, DRAWING BACK BLOOD, 2 LUMENS HEPARIN LOCKED. UPDATED PLAN OF CARE AND POVIDED EDUCATION ON PAIN MANAGEMENT, SAFETY, AND FALL PREVENTION, PT VERBALIZED UNDERSTANDING AND AGREEABLE.
--- NOTE | 2018-09-15 21:00 | NUR ---
PHONE CALL TO DR. VALENTINO TO UPDATE ON PT'S CONDITION AND URINE OUTPUT. PER DR. VALENTINO, MONITOR URINE OUTPUT, IF PT HAS LESS THAN 30 MLS/HR OR LESS THAN 120 MLS IN 4 HOURS OF URINE OUTPUT GIVE ONE TIME 500 ML LR BOLUS. ORDER READ BACK AND VERIFIED. WILL CONTINUE TO MONITOR.
--- NOTE | 2018-09-15 22:11 | NUR ---
FOUR HOUR URINE OUTPUT 160 MLS. QS AT THIS TIME. WILL CONTINUE TO MONITOR.
--- NOTE | 2018-09-16 00:38 | NUR ---
PT HAD EXTRA LARGE BROWN/CLEAR LIQUID STOOL. LINEN CHANGED, BED BATH COMPLETE, NEW GOWN APPLIED.
--- NOTE | 2018-09-16 01:20 | NUR ---
PT HAD ADDITIONAL EXTRA LARGE BROWN/CLEAR LIQUID BM. LINEN CHANGED AND PARTIAL BED BATH COMPLETED.
--- NOTE | 2018-09-16 03:00 | NUR ---
PT RESTING IN BED, ASSESSED FOR BM, NON NOTED. WILL CONTINUE TO MONITOR.
--- NOTE | 2018-09-16 04:00 | NUR ---
NO ACUTE CHANGES TO ASSESSMENT. PT REMAINS RESTFUL. AWAKENS EASILY AND DENIES BM. WILL CONTINUE TO MONITOR.
--- NOTE | 2018-09-16 05:44 | NUR ---
ASSESSED FOR BM, NON NOTED, PT REMAINS RESTFUL.
--- NOTE | 2018-09-16 06:05 | NUR ---
FOUR HOUR URINE OUTPUT 60 MLS, 500 ML LR BOLUS TO BE GIVEN PE PROVIDER VERBAL ORDER.
--- NOTE | 2018-09-16 07:27 | NUR ---
PT NOTED TO BE CALLING OUT "OUCH" AND LUCA, RN IN ROOM TO ASSESS. PT RESTING IN BED WITH EYES CLOSED, GROANING, AND PICKING AT CLOTHES. PT DIFFICULT TO AROUSE AND UNABLE TO FOLLOW COMMANDS. PHONE CALL TO DR. MILLER REGADING CHANGES. ORDER RC'D FOR ABG, VERIFIED, OBTAINED. PHONE CALL TO DR. VALENTINO REGARDING PT CONDITION, ABD RESULTS PROVIDED. ORDER RC'D FOR BIPAP AND ONE TIME DOSE NARCAN IF PUPILS PIN POINT, READ BACK AND VERIFIED. PUPILS WNL ON ASSESSMENT. R/T IN ROOM TO PLACE BIPAP. REPORT GIVEN TO DAY SHIFT NURSES.
--- NOTE | 2018-09-16 07:30 | NUR ---
REPORT RECIEVED. PATIENT PLACED ON BIPAP AT 28%FIO2,I-18,E-5. ABG RESULTS ROSSANA WERE DRAWN EARILIER, PH-7.30, PCO2-64.2, PO2-97. DR. VALENTINO IS AWARE AND BIPAP ORDERED. IS OBTUNDED AT THIS TIME. NOT FOLLOWING COMMANDS.
--- NOTE | 2018-09-16 08:00 | NUR ---
ASSESSMENT DONE. WILL OPEN EYES FOR BRIEF PERIOD, NOT FOLLOWING COMMANDS. IVF INFUSING VIA RIJ AT 85 ML/HR. DR. VALENTINO HERE TO SEE PATIENT, ORDERS RECIEVED. WILL DO ABG AT 0830. HOB IS ELEVATED. SCD'S ON. INC OF STOOL, BED LINEN CHANGED. WILL SCRATCH SKIN A TIMES. MODIFIDED SPONGE BATH GIVEN, NYSTATIN CREAM/POWDER APPLIED OREDED. HOLDING PO MEDICATION AT THIS TIME IS NOT ABLE TO TAKE PO DUE TO AMS, POSSIBLE ASPIRTAION. MDS AWARE.
--- NOTE | 2018-09-16 09:00 | NUR ---
PORT CXR DONE. FAMILY MEMBERS ARE HERE. RN AND DR. COLVIN TALKED WITH THEM.
--- NOTE | 2018-09-16 09:10 | NUR ---
INC OF STOOL. CHUX, ATTENDS CHANGED. MOANING WHEN TURNED. IS MORE AWAKE, FOLLOWING SOME COMMANDS. REMAINS ON BIPAP. ABG RESULTS FOR 0830 ABG DRAW ARE UNCHANGED. AMMONIA LAB DRAWM.
--- NOTE | 2018-09-16 10:00 | NUR ---
AMMONIA-133. DR. MILLER AND DR. VALENTINO AWARE. ORDERS RECIEVED.
--- NOTE | 2018-09-16 10:30 | NUR ---
COLONOSCOPY CANCELLED FOR TODAY PER DR. VALENTINO'S ORDERS. OR, PATIENT AND FAMILY AWARE.
--- NOTE | 2018-09-16 11:00 | NUR ---
IS MUCH MORE AWAKE AND FOLLOWING COMMANDS AND TALKING. IS AWARE OF PERSON, PLACE, TIME. FAMILY IN ROOM. HAS HAD 3 LIQ BROWN STOOLS THIS SHIFT. TOOK PO MEDICATIONS WITHOUT PROBLEMS.
--- NOTE | 2018-09-16 11:26 | NUR ---
SPOKE WITH PATIENT AND SON ANIRUDH IN ROOM. PATIENT IS IN BED WITH BIPAP IN PLACE, FALLS ASLEEP EASILY DURING CONVERSATION. PATIENT LIVES WITH DAUGHTER ALPHONSO Jimenez ([phone]). PATIENT IS USUALLY AMBULATORY AND INDEPENDENT, ALTHOUGH DOES HAVE A FOUR WHEEL WALKER (WITH SEAT) AT HOME. PATIENT DRIVES SELF, HAS A CAR. FAMILY STATES SHE HAS A PCP, DR SARAH. PATIENT HAS HOME OXYGEN WHO SHE STATES IS THROUGH [facility]. PATIENT WANTS TO DISCHARGE HOME WITH DAUGHTER WHEN READY. PATIENT IS TOO SLEEPY TO EDUCATE AT THIS TIME, DID DISCUSS WITH SON THAT WE WOULD LIKE FAMILY PRESENT FOR EDUCATION MUCH POSSIBLE UNTIL DISCHARGE. HE STATES UNDERSTANDING. NO FURTHER QUESTIONS AT THIS TIME.
--- NOTE | 2018-09-16 11:37 | NUR ---
ABG RESULTS ON BIPAP AT 28% FIO2, PH-7.34, PCO2-56.4, PO2- 92, HCO3-29.9. REMAINS ON BIPAP.
--- NOTE | 2018-09-16 12:00 | NUR ---
ASSESSMENT DONE. IS AWAKE ON BIPAP. FOLLOWING COMMANDS W/O DELAY. FAMILY IN ROOM. HOB REMAINS ELEVATED. NO DISTRESS NOTED.
--- NOTE | 2018-09-16 12:20 | NUR ---
INCONT OF STOOL. LINENS CHANGED. REPOSITIONED. GONZALEZ CATH PATENT.
--- NOTE | 2018-09-16 14:49 | NUR ---
SLEEPING ON BIPAP. NO DISTRESS NOTED.
--- NOTE | 2018-09-16 16:00 | NUR ---
ASSESSMENT DONE. OFF BIPAP AT THIS TIME. DIFFICULTY WAKING UP. FAMILY MEMBERS AT BEDSIDE. C/O GENERAL PAIN.
--- NOTE | 2018-09-16 17:48 | NUR ---
TORDOL 30 MG IV GIVEN ORDERED FOR PAIN.
--- NOTE | 2018-09-16 18:00 | NUR ---
INCONT OF LARGE LIQUID STOOL. FULL BED LINEN CHANGE DONE. PATIENT IS COMPLETLY AWAKE. FOLLOWING COMMANDS. IS CURRRENTLY ON O2 VIA NC AT 1 LITER. STATES PAIN IS LESS NOW. IVF PATENT. RIJ DRESSING IS INTACT.
--- NOTE | 2018-09-16 19:17 | NUR ---
BIPAP REAPPLIED, SCD'S ON. REPORT TO MEXT SHIFT.
--- NOTE | 2018-09-16 19:41 | NUR ---
REPORT RC'D FROM DAY SHIFT NURSE SINA. REPORTS REPEAT ABG IMPROVING, BIPAP TO CONTINUE, AMMONIA LEVELS ELEVATED, LACTULOSE GIVEN WITH MULTIPLE BMS. PT CURRENTLY IN BED WITH BIPAP IN PLACE AND FAMILY AT BEDSIDE.
--- NOTE | 2018-09-16 20:56 | NUR ---
PHONE CALL TO DR. VALENTINO TO UPDATE ON PT'S CONDITION. INFORMED PROVIDER OF INCREASED LETHARGY AND DECREASED ABILITY TO FOLLOW COMMANDS. ORDER RC'D FOR ABG NOW, READ BACK AND VERIFIED. INFORMED PROVIDER OF URINE OUTPUT. ORDER RC'D FOR ONE TIME 500 ML LR BOLUS FOR URINE OUTPUT LESS THAN 120 MLS IN FOUR HOURS, READ BACK AND VERIFIED.
--- NOTE | 2018-09-16 21:47 | NUR ---
PHONE CALL TO DR. VALENTINO REGARDING ABG LAB RESULTS. ORDER RC'D TO CONTINUE TO MONITOR PT, IF CHANGE IN ASSESSMENT OR RESPONSIVENESS REPEAT ABG, READ BACK AND VERIFIED.
--- NOTE | 2018-09-16 22:30 | NUR ---
DECREASED URINE OUTPUT, 500 ML LR BOLUS TO BE GIVEN PER ORDER.
--- NOTE | 2018-09-17 | NUR ---
NO ACUTE CHANGES TO ASSESSMENT. PT REMAINS ON BIPAP AT THIS TIME.
--- NOTE | 2018-09-17 01:30 | NUR ---
PT HEARD GROANING, IN ROOM TO ASSESS PT. SMALL LIQUID GREEN/YELLOW STOOL NOTED, NEW ATTEND PLACED. PT REQUESTING BIPAP OFF, AAOX4, RECALLS EVENT AND NAMES OF STAFF, RESPONDS APPROPRIATELY. 1 NC PLACED. WILL CONTINUE TO DAWSON.
--- NOTE | 2018-09-17 02:00 | NUR ---
PT REMAINS OFF BIPAP AND ALERT AND ORIENTED. REQUESTING TO REMAIN OFF BIPAP UNTIL "LUIS FELIPE ANSHUL" IS DONE. EDUCATION PROVIDED ON BIPAP INDICATION AND USE, PT AGREEABLE TO WEAR BIPAP ONCE "MY SHOWS ARE OVER."
--- NOTE | 2018-09-17 03:24 | NUR ---
PT REMAINS AAOX4 AND RESPONDING APPROPRIATELY. ON 1L NC. WATCHING TV AT THIS TIME. 500 ML BOLUS INFUSING FOR DECREASED URINE OUTPUT.
--- NOTE | 2018-09-17 04:00 | NUR ---
PT REMAINS ORIENTED AND RESPONDING APPROPRIATELY. PT PLACED BACK ON BIPAP AT THIS TIME. URINE OUTPUT CONTINUES TO BE DECREASED DESPITE FLUID BOLUS, WILL CONTINUE TO MONITOR. NO ADDITIONAL ACUTE CHANGES.
--- NOTE | 2018-09-17 05:30 | NUR ---
PT RESTING COMFORTABLY WITH BIPAP IN PLACE
--- NOTE | 2018-09-17 06:35 | NUR ---
PHONE CALL TO DR. VALENTINO TO UPDATE ON PT'S CONDITION AND INFORM OF CONTINUED DECREASED URINE OUTPUT DESPITE FLUID BOLUS. ORDER RC'D FOR 2G IV MAGNESIUM ONCE, 20 MEQ IV POTASSIUM ONCE, AND 20 MG IV LASIX ONCE, READ BACK AND VERIFIED.
--- NOTE | 2018-09-17 07:30 | NUR ---
REPORT RECIEVED PATIENT IS IN BED WITH BIPAP ON, IS ASLEEP.
--- NOTE | 2018-09-17 08:00 | NUR ---
WOKE, ASSESSMENT DONE. IS DROWSY. ABGS DRAWN PER RT. THEN SAT PATIENT AT BEDSIDE WITH MUCH ASSIST. PATIENT IS UNABLE TO STAND TO PIVIOT TO CHAIR. OVERHEAD LIFT USED FOR TRANSFER TO CHAIR. INCONT OF STOOL. THEN TO CHAIR. GONZALEZ CATH IS PATENT, IVF INFUSING TO [facility]. ROUTINE MEDICATIONS GIVEN. PATIENT C/O OVERALL SKIN PAIN/ITCHING. NYSTATIN CREAM/POWDER APPLIED.
--- NOTE | 2018-09-17 09:00 | NUR ---
ATTEMPTING CLEAR LIQUIDS. HAVING DIFFICULY MANAGING CUPS, SPILLED COFFEE ON ABD.
--- NOTE | 2018-09-17 09:58 | NUR ---
REMAINS IN CHAIR.
--- NOTE | 2018-09-17 10:50 | NUR ---
REMAINS IN CHAIR. INC OF STOOL WHILE IN CHAIR. BACK TO BED WITH ASSIST OF 3 STAFF AND OVERHEAD LIFT. PATIENT MOANING WHEN MOVED. TALKING ABOUT FIBROMYALIGA PAIN. HAS BEEN OFF BIPAP ALL MORNING.
--- NOTE | 2018-09-17 11:44 | NUR ---
ASSESSMENT DONE. REFUSING CLEAR LIQS.
--- NOTE | 2018-09-17 11:50 | NUR ---
dr. whitfield here to see patient. O2 TO OFF, IS NOW ON RA. WILL CONTINUE TO MONITOR SPO2. PATIENT STATES SHE FEELS BETTER TODAY. IS MUCH MORE ALERT TODAY.
--- NOTE | 2018-09-17 12:00 | NUR ---
ASSESSMENT DONE. SEVERAL PEOPLE ROOM.
--- NOTE | 2018-09-17 12:20 | NUR ---
TYLENOL GIVEN FOR HEADACHE.
--- NOTE | 2018-09-17 13:15 | NUR ---
DR. VALENTINO HERE TO SEE PATIENT. DR. VALENTINO TALKED WITH PATIENT ABOUT CANCER DX. PATIENT IS AWARE OF LIVER CANCER, AND THE POSSIBILTY OF CANCER OF COLON, GALLBLADDER. QUESTIONS ASKED BY PATIENT. HOB IS ELEVATED.
--- NOTE | 2018-09-17 15:10 | NUR ---
RESTING, BIPAP APPLIED. ADONAY WALTERS.
--- NOTE | 2018-09-17 17:49 | NUR ---
INC OF SMALL OF STOOL. REPOSIIONED. PATIENT SAYING "OUCH" SAYS SHE IS SAYING THIS BECAUSE OF FIBROMYALGIA. REMAINS RESTLESS. REFUSING BIPAP AT THIS TIME.
--- NOTE | 2018-09-17 18:55 | NUR ---
OOB TO CHAIR VIA OVER HEAD LIFT PER PATIENT REQUEST. MESSAGE LEFT EARLIER VIA PHONE WITH DR. VALENTINO REGARDING U/O AND TO UPDATE ON OVERALL STATUS.
--- NOTE | 2018-09-17 19:02 | NUR ---
REPORT TO NEXT SHIFT.PATIENT REMAINS IN CHAIR.
--- NOTE | 2018-09-17 19:25 | NUR ---
SHIFT REPORT RECEIVED FROM ISELA LOVELACE. IN TO INTRUDUCE MYSELF TO PT WHO IS CURRENTLY SITTING UP IN THE CHAIR. 1L O2 VIA NC IN PLACE. LISA PATENT. IVF INFUSING WNL THROUGH RIGHT I.J. PT DENIES NEEDS AT THIS TIME, CALL LIGHT WITHIN REACH, PT WITHIN VIEW OF NURSES' STATION.
--- NOTE | 2018-09-17 19:45 | NUR ---
PT CALLED OUT FOR THIS RN BY MY NAME. PT STATES SHE NEEDS TO GET BACK INTO BED. TRANSFERRED VIA OVERHEAD LIFT BACK TO BED. LOTION APPLIED TO PT'S BACK PER REQUEST. CALL LIGHT WITHIN REACH.
--- NOTE | 2018-09-17 20:40 | NUR ---
ASSESSMENT COMPLETED, PT IS ALERT, ORIENTED TO ALL BUT DATE/TIME, IS FORGETFUL AND SLOW TO RESPOND. LUNGS CLEAR/DIM, RA AT THIS TIME, SPO2:93%. HR REGULAR. BOWEL TONES ACTIVE, ABDOMEN OBESE AND NON-TENDER. DENIES PAIN AND NAUSEA. LAP SITES X2 ARE C/D/I, UMBILICAL SITE APPEARS SLIGHTLY REDDENED. SKIN IS VERY FRAGILE AND ECCHYMOTIC, NYSTATIN APPLIED TO FOLDS. SCD'S IN PLACE. RIGHT CENTRAL LINE DRESSING C/D/I, NO REDNESS OR SWELLING NOTED AT SITE, PT DENIES PAIN. ALL LUMENS HAVE GOOD BLOOD RETURN AND FLUSH WNL. 2 LUMENS THAT ARE NOT IN USE HEPARIN LOCKED. PT'S DAUGHTER AND GRANDSON AT BEDSIDE AT THIS TIME. PT PROVIDED WIITH FRESH WATER, NO FURTHER REQUESTS AT THIS TIME.
--- NOTE | 2018-09-17 21:37 | NUR ---
PT BOOSTED UP IN BED PER REQUEST. 1L O2 VIA NC IN PLACE, SPO2:96%. PT DENIES FURTHER REQUESTS AT THIS TIME.
--- NOTE | 2018-09-17 22:35 | NUR ---
PT RANDOMLY MOANS AND CALLS OUT "I'M TIRED!" IN TO CHECK ON PT TO SEE IF THERE IS ANYTHING I CAN HELP HER WITH AND PT STATES, "NO, I'M JUST RELAXING." DENIES PAIN. PT'S FAMILY HAS GONE HOME FOR THE NIGHT, WILL CONTINUE TO MONITOR.
--- NOTE | 2018-09-17 22:54 | NUR ---
PT CONTINUED TO FREQUENTLY CALL OUT AND WAS ABLE TO DETERMINE THAT THE SCD'S WERE CAUSING HER DISCOMFORT, REMOVED AT THIS TIME TO GIVE HER A BREAK.
--- NOTE | 2018-09-17 23:27 | NUR ---
PT ASSISTED TO REPOSITION IN BED. ASSESSMENT COMPLETED, NO CHANGES FROM PREVIOUS ASSESSMENT-SEE DOCUMENTATION. NO REQUESTS AT THIS TIME, CALL LIGHT WITHIN REACH.
--- NOTE | 2018-09-17 23:49 | NUR ---
PT CONTINUES TO RUBA, PT STATES THAT SHE "HURTS EVERYWHERE" AND RATES PAIN 10/10. PRN TYLENOL ADMINSITERED. PT NOW SITTING UP IN THE BED.
--- NOTE | 2018-09-18 00:03 | NUR ---
R.T. IN ROOM AT THIS TIME, PT REFUSES BIPAP AND MIDNIGHT BREATHING TREATMENT.
--- NOTE | 2018-09-18 00:24 | NUR ---
PT REMAINS AGITATED AND PAINFUL, PRN OXYCODONE GIVEN. PT ALSO STATES THAT SHE IS FEELING SOB AND STATES THAT SHE WOULD LIKE HER BREATHING TREATMENT NOW. Linden CALLED.
--- NOTE | 2018-09-18 01:13 | NUR ---
DR. MILLER INTO UNIT I WAS PREPARING TO CALL HIM. PT'S HR:140'S AND NOT QUICKLY RETURNING BACK TO BASELINE. AT THE TIME, PT WAS ATTEMPTING TO WEAR BIPAP, BUT WAS UNABLE TO TOLERATE IT. ORDERS RECEIVED FOR 2 GM MAGNESIUM PIGGYBACK, 5MG IV METOPROLOL, AND EKG. METOPROLOL WAS GIVEN SLOW IV PUSH AND PT'S HR NOW 101, MAGNESIUM CURRENTLY INFUSING. PT APPEARS TO BE RESTING MORE COMFORTABLY NOW. PT REPOSITIONED IN BED AND LOTION APPLIED TO BACK PER REQUEST FOR ITCHY SKIN. WILL CONTINUE TO CLOSELY MONITOR, CALL LIGHT WITHIN REACH.
--- NOTE | 2018-09-18 01:45 | NUR ---
DR. MILLER BACK THROUGH UNIT TO CHECK ON PT. HR NOW: 99, BP: 103/33(47). PRN ESMOLOL DRIP ORDERED FOR SUSTAINED HR >120. WILL CONTINUE TO MONITOR.
--- NOTE | 2018-09-18 03:45 | NUR ---
ASSESSMENT COMPLETED. NO CHANGES FROM PREVIOUS ASSESSMENT. PT REPOSITIONED IN BED, NEW DRAW SHEET UNDERNEATH HER, PT ABLE TO HELP TURN HERSELF IN BED. CENTRAL LINE DRESSING REMAINS INTACT, NO REDNESS OR SWELLING NOTED, INFUSING WNL. GONZALEZ PATENT, UO QS. 1L O2 VIA NC IN PLACE. SCD'S REMAIN OFF AT THIS TIME DUE TO PT REMAINING RESTLESS. LAP SITES REMAIN UNCHANGED WITH OLD DRIED DRAINAGE PRESENT AND STERI STRIPS INTACT. CALL LIGHT WITHIN REACH, NO FURTHER REQUESTS AT THIS TIME.
--- NOTE | 2018-09-18 06:18 | NUR ---
IN TO DRAW MORNING LABS FROM CENTRAL LINE, PORT HAS GOOD BLOOD RETURN AND FLUSHES WNL, DRESSING INTACT. PT REPORTS A HEADACHE AND GENERALIZED PAIN THAT SHE RATES 8/10, PRN TYLENOL ADMINISTERED. PT DENIES OTHER NEEDS AT THIS TIME.
--- NOTE | 2018-09-18 06:48 | NUR ---
PT CONTINUES TO APPEAR RESTLESS AND MOANS, PRN OXYCODONE ADMINISTERED.
--- NOTE | 2018-09-18 07:49 | NUR ---
RECEIVED REPORT FROM DRYWALL CARRIER. pt RESTING IN BED WITH EYES CLOSED, RESPIRATIONS REGULAR, RATE = 18. CALL LIGHT WITHIN REACH. CURTAIN OPEN TO NURSES STATION. WHITEBOARD UPDATED.
--- NOTE | 2018-09-18 09:00 | NUR ---
WOKE pt. CHANGED DEPENDS, NO BM. GONZALEZ AND MELL CARE DONE. NYSTATIN POWDER APPLIED. pt COOPERATIVE BUT WOULD NOT GIVE MORE THAN A YES OR NO ANSWER. CENTRAL LINE DRESSING CHANGED. GRANDSON ARRIVED. pt RECOGNIZED AND CALLED HIM BY NAME, REPEATEDLY ASKED "WHY ARE YOU HERE SO EARLY". DENIED PAIN. REPORTED FEELING ITCHY ESPECIALLY WHERE THE DRESSING HAD BEEN CHANGED ON RIGHT IJ. DR. VALENTINO IN ROOM TO UPDATE FAMILY AND pt ON STATUS AND PLAN OF CARE. MEDICATIONS GIVEN ORALLY. pt ABLE TO SWALLOW WELL. ORIENTED TO SELF AND LOCATION BUT UNABLE TO ANSWER ANY OTHER QUESTIONS AT THIS TIME. CONTINUES TO DENY PAIN. MOANING FREQUENLY. ON 1L O2 SAT 96% WHEN SITTING UP AND AWAKE. PROVIDED PRIVACY FOR FAMILY. WARM BLANKETS PROVIDED.
--- NOTE | 2018-09-18 10:07 | NUR ---
SPOKE WITH DR VALENTINO. ORDERED REGULAR DIET. ORDER ENTERED. PLACED ORDER WITH DIETARY.
--- NOTE | 2018-09-18 10:37 | NUR ---
pt RESTING WITH EYES CLOSED, OPENED EYES WHEN THIS RN ENTERED ROOM. AGREEABLE TO TRYING BIPAP. PLACED ON BIPAP. CALL LIGHT WITHIN REACH. CURTAIN OPEN TO NURSES STATION.
--- NOTE | 2018-09-18 11:20 | NUR ---
ROUNDED ON pt. RESTING WITH EYES CLOSED, RESPIRATIONS REGULAR. TOLERATING BIPAP. CURTAIN OPEN TO NURSES STATION.
--- NOTE | 2018-09-18 11:50 | NUR ---
FAMILY AT BEDSIDE. pt RESTING WITH BIPAP ON. RESPIRATIONS REGULAR, O2 SAT 98%.
--- NOTE | 2018-09-18 11:55 | NUR ---
pt AWAKE. REMOVED BIPAP. FAMILY AT BEDSIDE. REFRESHED ICE WATER. DENIED PAIN AT THIS TIME. CALL LIGHT WITHIN REACH.
--- NOTE | 2018-09-18 12:30 | NUR ---
ASSESSMENT DONE. RT COMPLETED BREATHING TREATMENT. pt PUT ON BIPAP. VISITOR AT BEDSIDE. pt DENIED PAIN AT THIS TIME. DIFFICULT TO ASSESSES LOC pt ONLY ANSWERING QUESTIONS YES AND NO. NEW BAG OF FLUIDS HUNG (SEE MAR). CALL LIGHT WITHIN REACH. CURTAIN OPEN TO NURSES STATION.
--- NOTE | 2018-09-18 13:34 | NUR ---
FOOD TRAY CLEARED FROM PATIENT'S ROOM. PATIENT ATE MINIMAL LUNCH, SOME BITES OF HER TOAST AND A COUPLE BITES OF FRUIT. PT DOZING OFF AND ON WITH FAMILY AT BEDSIDE IN ROOM. PT IS MORE ALERT THIS AFTERNOON AFTER SLEEPING A FEW HOURS THIS MORNING WITH BIPAP ON. PLAN MADE TO GIVE PATIENT A BED BATH THIS AFTERNOON AND CHANGE HER SHEETS. PATIENT NOT WEARING HER OXYGEN FOR A SHORT TIME AND NOTED TO DESAT BRIEFLY WHILE RESTING, DOWN TO 88% BUT RECOVERING UP TO 92-94%. OXYGEN REAPPLIED AT 2 L NC. PT DENIES FURTHER NEEDS AT THIS TIME.
--- NOTE | 2018-09-18 13:39 | NUR ---
PT'S FAMILY HAD JUST LEFT, WENT IN WITH PT. SHE SAID HELLO, SAID PAIN WAS NOT BAD, WOULD NOT PUT # ON IT. HAD BRIEF CONVERSATION, PT STATED SHE WAS TIRED AND FELL ASLEEP BEFORE SHE FINISHED HER SENTENCE. EXTENDED A BLESSING AND SILENT PRAYER ON PT'S BEHALF. WILL FOLLOW NEEDED
--- NOTE | 2018-09-18 13:47 | NUR ---
BIPAP PLACED BACK ON PATIENT AT THIS TIME. PT'S FAMILY REMAINS IN ROOM VISITING WITH HER, BUT PATIENT IS MOSTLY DOZING OFF TO SLEEP.
--- NOTE | 2018-09-18 14:29 | NUR ---
pt RESTING WITH EYES CLOSED, RESPIRATIONS REGULAR. ON BIPAP. CURTAIN OPEN TO NURSES STATION.
--- NOTE | 2018-09-18 15:32 | EKG ---
[facility] [address] [place] [address] Signed Sinus tachycardia with premature atrial complexes Nonspecific ST abnormality Abnormal ECG When compared with ECG of 12-SEP-2018 19:12, premature atrial complexes are now present Minimal criteria for Anteroseptal infarct are no longer present ST now depressed in Anterior leads T wave inversion now evident in Inferior leads T wave amplitude has increased in Anterior leads Confirmed by ANIRUDH MILLER DO ([id number]) on 09/18/2018 3:32:43 PM Electronically Signed By: ANIRUDH MILLER DO 09/18/18 1532 PATIENT NAME: MICHELLE MYRICK Electrocardiogram DATE OF : 49 PHYSICIAN: ANIRUDH MILLER DO REPORT #: [id number] REPORT IS CONFIDENTIAL AND NOT TO BE RELEASED WITHOUT AUTHORIZATION
--- NOTE | 2018-09-18 15:59 | NUR ---
MEDICATION DUE. pt RESPONDED BUT REQUIRED A LOT OF PROMPTING TO TAKE MEDICATION. SWALLOWED WELL. BED BATH AND MELL CARE DONE. NYSTATIN APPLIED. pt ASSISTED IN TURNING. pt STATE "THAT FEELS GOOD". LINENS CHANGED. NO BM. ASSESSMENT DONE. RT IN ROOM TO DO TREATMENT. pt CHANGED FROM BIPAP TO NC 1L WHEN MEDICATION GIVEN (SEE MAR). BACK ON BIPAP. pt RESPONDED MAINLY WITH YES AND NO BUT DID SPEAK A FEW SENTENCES AND REQUESTED A TV PROGRAM BY NAME. pt RESTING ON BIPAP WATCHING TV. CALL LIGHT WITHIN REACH. CURTAIN OPEN TO NURSES STATION.
--- NOTE | 2018-09-18 16:15 | NUR ---
FAMILY ARRIVED. pt REQUESTED TO BE OFF BIPAP. ON NC 1L. pt ALERT AND AWAKE. MENTIONED GREAT GRANDCHILD. NO FURTHER REQUESTS AT THIS TIME. CALL LIGHT WITHIN REACH.
--- NOTE | 2018-09-18 18:09 | NUR ---
CLEARED PUMP, EMPTIED GONZALEZ. pt SITTING IN BED ALERT AND AWAKE INTERACTING APPROPRIATELY WITH FAMILY. ATE A CUP OF JELLO, REFUSED ENSURE. REFUSED OTHER FOOD AT THIS TIME. SEVERAL FAMILY MEMBERS AT BEDSIDE. CALL LIGHT WITHIN REACH.
--- NOTE | 2018-09-18 19:30 | NUR ---
SHIFT REPORT RECEIVED FROM ISELA ESPINAL. PT IS CURRENTLY SITTING UP IN BED AND EATING SOME CHICKEN AND MASHED POTATOES THAT HER FAMILY BROUGHT IN. IVF INFUSING WNL. 1L O2 VIA NC IN PLACE. GONZALEZ PATENT. PT'S DAUGHTER AND GRANDSON AT BEDSIDE. NO REQUESTS AT THIS TIME, CALL LIGHT WITHIN REACH.
--- NOTE | 2018-09-18 20:30 | NUR ---
ASSESSMENT COMPLETED, PT SLIGHTLY DROWSY AND FOGETFUL, BUT IS ORIENTED TO SELF, SURROUNDINGS, AND EVENT. DENIES PAIN. LUNGS CLEAR/DIM, 1L O2 VIA NC IN PLACE. HR REGULAR. BOWEL TONES ACTIVE, DENIES NAUSEA. LAP SITES X3 TO ABDOMEN C/D/I UMBILICAL SITE SLIGHTLY REDDENED. NYSTATIN APPLIED TO FOLDS. MELL AND CATH CARE DONE. PT HAD SMALL AMOUNT OF LIQUID STOOL, NEW ATTENDS IN PLACE. SCD'S IN PLACE. CENTRAL LINE DRESSING INTACT, ALL 3 LUMENS HAVE GOOD BLOOD RETURN AND FLUSH WNL, 2 LUMENS THAT ARE NOT IN USE HEPARIN LOCKED. CALL LIGHT WITHIN REACH.
--- NOTE | 2018-09-18 20:53 | NUR ---
DR. MILLER IN TO UNIT TO CHECK IN. SCHEDULED NEBS CHANGED TO QID AND PER FAMILY REQUEST, DISCUSSED POSSIBLY ADDING PRN MELATONIN TO HELP PT SLEEP, WHICH HE IS AGREEABLE TO.
--- NOTE | 2018-09-18 21:15 | NUR ---
PRN TYLENOL GIVEN FOR HEADACHE. PT AGREEABLE TO WEARING BIPAP "IN A LITTLE BIT." WILL CONTINUE TO MONITOR.
--- NOTE | 2018-09-18 21:42 | NUR ---
BIPAP PLACED ON PT AT THIS TIME.
--- NOTE | 2018-09-18 22:03 | NUR ---
PT APPEARS TO BE SLEEPING, NO APPARENT DISTRESS. RESPIRATIONS EVEN AND UNLABORED, BIPAP IN PLACE, FIO2:28%. HR:85, RR:21, SPO2:96%. WILL ALLOW FOR REST AND CONTINUE TO MONITOR.
--- NOTE | 2018-09-18 22:40 | NUR ---
PT REMOVED BIPAP MASK AT THIS TIME, STATES SHE NEEDS TO TAKE A BREAK. 1L O2 VIA NC IN PLACE.
--- NOTE | 2018-09-18 23:20 | NUR ---
PT REPOSITIONED IN BED WITH ASSISTANCE. PT HAD BEEN INCONTINENT OF SMALL AMOUNT OF LIQUID STOOL, MELL-CARE AND NEW ATTENDS PROVIDED. C/O HEADACHE, IS FORGETFUL THAT SHE RECEIVED PAIN MEDICATION. BIPAP PLACED BACK ON PT AT THIS TIME.
--- NOTE | 2018-09-19 01:45 | NUR ---
PT HAS BEEN SLEEPING SOUNDLY SINCE BIPAP WAS PLACED. NO APPARENT DISTRESS AT THIS TIME, RESPIRATIONS EVEN AND UNLABORED. RR:23, SPO2:97%, HR:83.
--- NOTE | 2018-09-19 02:14 | NUR ---
PT AWOKE AND REMOVED BIPAP MASK, STATES SHE NEEDS TO TAKE A BREAK. 1L O2 VIA NC IN PLACE. VITAL SIGNS STABLE. NO REQUESTS AT THIS TIME.
--- NOTE | 2018-09-19 03:08 | NUR ---
PT BACK ON BIPAP AT THIS TIME.
--- NOTE | 2018-09-19 05:15 | NUR ---
ASSESSMENT COMPLETED, NO CHANGES FROM PREVIOUS ASSESSMENT. BIPAP REMAINS IN PLACE. PT DENIES REQUESTS AT THIS TIME.
--- NOTE | 2018-09-19 05:30 | NUR ---
PT OFF BIPAP AT THIS TIME. 1L O2 VIA NC IN PLACE.
--- NOTE | 2018-09-19 06:00 | NUR ---
PT CONTINUES TO REPORT 8/10 HEADACHE PAIN, PRN TYLENOL GIVEN. PT ALSO PROVIDED WITH A CUP OF COFFEE. PT REQUESTS BREATHING TREATMENT, R.T. IN ROOM AT THIS TIME. PT BOOSTED UP IN BED AND IS NOW SITTING UP IN BED.
--- NOTE | 2018-09-19 06:33 | NUR ---
PT REQUESTS LOTION, APPLIED TO BACK AT THIS TIME FOR ITCHING. ATTENDS APPEAR DRY AT THIS TIME. PT BOOSTED IN BED. PT SPILLED HER COFFEE WHICH LUCKILY WAS NOT HOT ENOUGH TO BURN. PT PROVIDED WITH COLA TO SEE IF SOME CAFFEINE WILL HELP HER HEADACHE.
--- NOTE | 2018-09-19 08:51 | NUR ---
PT DID ONLY EATS BITS OF BKF AT THIS TIME. PT IS COOPERATIVE WITH HOSPITAL ROUTINE AT THIS TIME, BUT DID NOT WANT TO GET UP TO THE CHAIR FOR BKF DUE TO NEEDING TO USE THE CEILING LIFT. "IT HURTS TO USE THAT LIFT."
--- NOTE | 2018-09-19 11:28 | NUR ---
DR VALENTINO HERE TO SEE AT THIS TIME, PT WILL BE TRANSFERED TO MS AT SOMEPOINT TODAY. PT FAMILY BROUGHT ESCOTO INTO PT, BUT PT COULD NOT TOLERATE THE SMELL FROM THEM AND THEY WHERE REMOVED AND PLACED IN CCU BATHROOM.
--- NOTE | 2018-09-19 12:12 | NUR ---
PT ARRIVES IN ROOM 109 FROM CCU, REPORT WAS RECEIVED FROM ISELA WILLIAM. PT IS ALERT AND ORIENTED TO SELF AND SITUATION. AND WAS REORIENTED TO DATE AND PLACE. ASSESSMENT COMPLETED. IV MAINTENANCE FLUIDS INFUSING ORDERED. VSS. PT DENIES SOB ON 1LPNC. CALL LIGHT AND H20 IN REACH AND PT DENIES NEEDS/CONCERNS.
--- NOTE | 2018-09-19 12:19 | NUR ---
REPORT GIVEN TO HATTIE ALL QUESTIONS ANSWERED. ALL PERSONAL BELONGINGS AND ESCOTO WENT TO THE M/S UNIT. ESCOTO ARE AT THE NURSES STATION ON M/S. ALL MEDICATIONS SENT TO THE MS UNIT ALSO. PT WAS TRANSPORTED VIA BED.
--- NOTE | 2018-09-19 12:39 | NUR ---
PATIENT SITTING UP IN CHAIR. PATIENT'S LUNCH ORDERED. CALL LIGHT WITHIN REACH. NO OTHER NEEDS AT THIS TIME
--- NOTE | 2018-09-19 13:41 | NUR ---
PATIENT SITTING UP IN BED. VITAL SIGNS AND I&O DONE. CALL LIGHT WITHIN REACH. NO OTHER NEEDS AT THIS TIME
--- NOTE | 2018-09-19 14:16 | NUR ---
SPOKE WITH PATIENT IN ROOM. PATIENT AWAKE, ALERT. PATIENT STATES SHE HAS CANCER AND IS NOT SURE SHE CAN GET IT TREATED. SHE STATES SHE IS VERY WEAK AND KNOWS SHE MIGHT NOT BE ABLE TO GO STRAIGHT HOME SHE WILL NEED HELP FOR AWHILE "UNTIL I CAN GET AROUND SOME". WE DISCUSSED THAT SHE MAY HAVE A LONG REHAB STAY THE CANCER WILL CONTINUE TO WEAKEN HER, SHE UNDERSTANDS THIS AND SHE STATES SHE JUST WANTS TO GET STRONG ENOUGH AND MAYBE SEE THE "CANCER DOCTOR ABOUT CHEMO". WE DISCUSSED OPTIONS OF SKILLED THERAPY FACILITIES IN THE AREA, SHE WOULD LIKE TO STAY IN [place] IF POSSIBLE AND WOULD LIKE [facility] CONTACTED. SHE STATES SHE HAS DONE A THERAPY FACILITY BEFORE AND UNDERSTANDS THE ROUTINE. PATIENT TALKED ALOT ABOUT HER FAMILY AND THE SUPPORT SHE HAS FROM THEM, STATES "BUT I NEED TO BE A LITTLE STRONGER BECAUSE THEY ARE ALL BUSY AND CANT BE HOME WITH ME ALL THE TIME". QUESTIONS ANSWERED, SHE AGREES TO MY SENDING PAPERWORK TO [place] AT THIS TIME.
--- NOTE | 2018-09-19 14:45 | NUR ---
PATIENT IN BED. PHYSICAL THERAPIST IN ROOM. PATIENT STANDS UP USING A WALKER. TWO PERSON ASSISTING. PATIENT TRANSFERRED TO CHAIR. DEPEND CHANGED. WARM BLANKET PROVIDED. CALL LIGHT WITHIN REACH. NO OTHER NEEDS AT THIS TIME
--- NOTE | 2018-09-19 15:15 | NUR ---
PT REPORTS 8/10 HEADACHE PIN. PRN PO OXYCODONE ADMINISTERED PER PT REQUEST. CALL LIGHT AND H20 IN REACH. PT ATE OVER 50% OF HER LUNCH AND DENIES NAUSEA OR SOB. NO FURTHER NEEDS/CONCERNS VOICED.
--- NOTE | 2018-09-19 17:15 | NUR ---
Pt sitting up in bed, eating dinner. Pt denies needs/concerns and appears to be in no acute distress. Family at bedside.
--- NOTE | 2018-09-19 19:00 | NUR ---
IN ROOM FOR REPORT, PT IS AWAKE IN BED AND HAS A VISITOR IN THE ROOM. SHE DENIES NEEDS AT THIS TIME. CALL LIGHT IS CLOSE.
--- NOTE | 2018-09-19 19:24 | NUR ---
PT REMAINED ALERT AND ORIENTED TO PERSON AND SITUATION AND WAS REORIENTED NEEDED. GONZALEZ CATH DRAINS QS ORANGE URINE. PT HAD LOOSE BM THIS SHIFT. SCHEDULED LACTULOSE. PT SATS IN PO'S ON 1LPNC. LAP SITES INTACT WITH SLIGHT SHADOIWING NOTED TO STERISTRIPS. TEL #2 REMAINS IN NSR.
--- NOTE | 2018-09-19 19:56 | NUR ---
ADMINISTERED IV LASIX. PT DENIES FURTHER NEEDS AT THIS TIME. CALL LIGHT IS WITHIN REACH.
--- NOTE | 2018-09-19 21:45 | NUR ---
IN ROOM TO ADMINISTER MEDICATIONS AND ASSESS PT. ALSO ADMINISTERED TYLENOL AND OXYCODONE FOR ABD PAIN AND HEADACHE. NYSTATIN APPLIED TO FOLDS. PT DENIES FURTHER NEEDS AT THIS TIME. CALL LIGHT IS CLOSE.
--- NOTE | 2018-09-19 22:54 | NUR ---
ASSISTED IN PULLING PT UP HIGHER IN BED FOR BREATHING TREATMENT. SHE DENIES FURTHER NEEDS.
--- NOTE | 2018-09-20 00:17 | NUR ---
patient needed to be re-adjusted in bed and i recieved assistance from LOSS PREVENTION RESEARCH ENGINEER September.
--- NOTE | 2018-09-20 00:31 | NUR ---
PT IS RESTING WITH EYES CLOSED, RESPIRATIONS ARE EVEN AND NONLABORED. CALL LIGHT IS WITHIN REACH.
--- NOTE | 2018-09-20 02:15 | NUR ---
PT IS RESTING WITH EYES CLOSED, RESPIRATIONS ARE EVEN AND NONLABORED. CALL LIGHT IS WITHIN REACH.
--- NOTE | 2018-09-20 03:56 | NUR ---
PT DENIES NEEDS AT THIS TIME. CALL LIGHT IS CLOSE.
--- NOTE | 2018-09-20 04:03 | NUR ---
patient appears uncomftable. repositioned and called for PRN neb treatment per pt requested.
--- NOTE | 2018-09-20 05:20 | NUR ---
VITALS AND I&OS DONE AND CHARTED. BEDSIDE TABLE AND CALL LIGHT IN REACH. INFORMED RN BRO OF LOW B\P.
--- NOTE | 2018-09-20 05:56 | NUR ---
ADMINISTERED THYROID MEDICINE, PT STATES SHE HAS A HEADACHE BUT DENIES NEED FOR TYLENOL. PT DENIES NEEDS AT THIS TIME. CALL LIGHT IS CLOSE.
--- NOTE | 2018-09-20 07:15 | NUR ---
PATIENT RESTING IN BED. HEAT PACKET PROVIDED. CALL LIGHT WITHIN REACH. NO OTHER NEEDS AT THIS TIME
--- NOTE | 2018-09-20 08:36 | NUR ---
PT RESTING IN SEMI FOWLERS POSITION IN BED WATCHING TV. PT ALERT AND ORIENTED TO PERSON AND PLACE AND REORIENTED TO SITUATION AND DATE. ASSESSMENT COMPLETED. AM MEDS ADMINISTERED. CALL LIGHT AND H20 IN REACH. PT DENIES FURTHER NEEDS/CONCERNS.
--- NOTE | 2018-09-20 09:02 | NUR ---
PATIENT RESTING IN BED. BEDBATH DONE. ORAL CARE DONE. CATHETER CARE DONE. PATIENT USING A CLEAN GOWN. VITAL SIGNS AND I&O DONE. ICE WATER GIVEN. CALL LIGHT WITHIN REACH. NO OTHER NEEDS AT THIS TIME
[2018-09-20] MEDS ORDERED: XIFAXAN550 MG PO (09:22)
[2018-09-20] MEDS ORDERED: TYLENOL EXTRA500 MG PO (09:23)
[2018-09-20] MEDS ORDERED: FUROSEMIDE20 MG PO (09:24)
[2018-09-20] MEDS ORDERED: POTASSIUM CHLO10 ME1 PO (09:24)
[2018-09-20] MEDS ORDERED: NYSTOP60 GM TOP (09:25)
[2018-09-20] MEDS ORDERED: LACTULOSE20 GM/30 M PO (09:26)
--- NOTE | 2018-09-20 10:15 | NUR ---
TALKED WITH DORIE FROM T ABOUT THIS PT SHE STATES THE RN HAS'NT HAD TIME TO READ THE CHART YET.
--- NOTE | 2018-09-20 11:35 | NUR ---
PT RESTING SUPINE IN BED, EYES CLOSED AND RESPIRATIONS EVEN AND UNLABORED AT 20. PT IS ALERT TO VOICE, STATES "I'M JUST REALLY TIRED I'M GOING TO TAKE A NAP". PT APPEARS TO HAVE WORSENED JAUNDICE FROM YESTERDAY. MD AWARE OF PT'S FATIGUE AND INCREASED JAUNDICE. RT NOTIFIED OF NEED FOR BIPAP. CALL LIGHT AND H20 IN REACH. FAMILY AT BEDSIDE. NO NEEDS/CONCERNS VOICED.
--- NOTE | 2018-09-20 11:45 | NUR ---
TALKED WITH PT DAUGHTER SEPTEMBER ABOUT HER MOTHER GOING TO [place] AND SHE STATED THAT INDEED THAT IS WHERE HER MOTHER WOULD LIKE TO GO TO. PT WOULDN'T AWAKEN WHILE I WAS IN THE ROOM, SEPTEMBER AND I DISCUSSED THAT SHE SHOULD BE USING THAT, THAT COULD HELP HER BREATH EASIER. I TALKED WITH HER NURSE ABOUT HER SLEEPY NESS AND HATTIE GOT UP AND CHECKED ON HER, PUT THE BIPAP ON HER. DR MILLER WENT IN AND SAW HER.
--- NOTE | 2018-09-20 13:10 | NUR ---
TALKED WITH DORIE AT [facility] AND SHE STATED THEY COULD TAKE HER TODAY AND I INFORMED HER THAT SHE IS ON A BIPAP AND MAY END UP BEING ON THAT UNTIL THE END. SHE STATED THEY HAVE A PT ALREAD ON THEIR BIPAP AND WILL HAVE TO GET ANOTHER ONE. STATES IT WILL PROBABLY BE BETTER IF WE COULD WAIT UNTIL SUNDAY. INFORMED THE DR AND STAFF OF THIS.
--- NOTE | 2018-09-20 13:27 | NUR ---
PATIENT SITTING UP IN BED. FAMILY IN ROOM. VITAL SIGNS AND I&O DONE. PATIENT'S LUNCH ORDERED. CALL LIGHT WITHIN REACH. NO OTHER NEEDS AT THIS TIME
--- NOTE | 2018-09-20 13:50 | NUR ---
PT ASSISTED ON TO BEDPAN WITH ASSISTANCE FROM CASSANDRA MONDRAGON AND NURIARN. PT IS ALERT AND ORIENTED ON 1.5L O2 PER NC SATTING 94% PT DENIES SOB AND STATES SHE IS FEELING BETTER AFTER HER NAP. PT HAD LARGE UNMEASURED VOID. PT CLEANED AND REPOSITIONED IN BED, PT STATES SHE IS COMFORTABLE. CALL LIGHT AND H20 IN REACH. PT DENIES FURTHER NEEDS/CONCERNS.
--- NOTE | 2018-09-20 14:50 | NUR ---
PATIENT USES BEDPAN. TWO PERSON ASSISTING. LINENS CHANGED. CALL LIGHT WITHIN REACH. NO OTHER NEEDS AT THIS TIME
--- NOTE | 2018-09-20 15:56 | NUR ---
PT ASSISTED ONTO BEDPAN AND OFF, LINENS CHANGED WITH ASSISTANCE FROM CASSANDRA MONDRAGON. PT DENIES SOB, PAIN OR HAVING ANY FURTHER NEEDS/CONCERNS. FAMILY BACK AT BEDSIDE. CALL LIGHT AND H20 IN REACH.
--- NOTE | 2018-09-20 15:56 | NUR ---
PATIENT USING BASE COMMODE. TWO PERSON ASSISTING. LINENS CHANGED. CALL LIGHT WITHIN REACH. NO OTHER NEEDS AT THIS TIME
--- NOTE | 2018-09-20 17:37 | NUR ---
PATIENT SITTING UP IN BED. VITAL SIGNS AND I&O DONE. CALL LIGHT WITHIN REACH. NO OTHER NEEDS AT THIS TIME
--- NOTE | 2018-09-20 18:11 | NUR ---
PT APPEARED EXHAUSTED EARLIER TODAY AND NAPPED FOR SEVERAL HOURS ON BIPAP. PT WAS EDUCATED ON IMPORTANCE OF USING BIPAP WHILE SHE IS SLEEPING DUE TO SLEEP APNEA. DUE TO PT'S FATIGUE MD DECIDED TO POSTPONE HER DISCHARGE. PT HAS REMAINED ALERT SINCE HER NAP AND STATES SHE IS FEELING BETTER. PT REMAINS CONFUSED TO DATE AND TIME AND NEEDS TO BE REORIENTED FROM TIME TO TIME. IJ TRIPLE LUMEN REMAINS PATENT AND IS HEP LOCKED. GONZALEZ CATH WAS REMOVED AND PT WAS GIVEN LASIX PO PER MD ORDER AND HAS STRONG RESPONSE WITH MULTIPLE LARGE VOIDS. PT HAS HAD DECREASED APPETITE TODAY BUT TOLERATES SMALL PORTIONS. PT REMAINS ON TELE # 2 IN SR. SCHEDULED NYSTATIN TO SKIN FOLDS. LACTULOSE DOSE ALSO INCREASED TO 45MLS TODAY. PT MAINTAINS O2 SATS IN MID TO HIGH 90'S ON 2LPNC. PT HAS BEEN UP INTERACTING WITH FAMILY WHO HAVE BEEN IN VISITING FOR MUCH OF THE DAY.
--- NOTE | 2018-09-20 19:10 | NUR ---
RECIEVED BEDSIDE REPORT FROM DEXTER WEISS. PATIENT RESTING AWAKE IN BED REQUESTING TO USE RESTROOM, PATIENT PLACED ON BEDPAN BY CNAs. WHITE BOARD UPDATED. CALL LIGHT WITHIN REACH. NUT SIFTER'S NOTIFED TO ASSIST PATIENT OFF BEDPAN. NO MORE NEEDS AT THIS TIME.
--- NOTE | 2018-09-20 19:20 | NUR ---
patient wanted off the bedpan so CASSANDRA September and myself assisted her.
--- NOTE | 2018-09-20 19:45 | NUR ---
patient wanted to sit on the side of the bed so i sat with her for about 30 mins. she asked if i could wipe down her back and apply some lotion.
--- NOTE | 2018-09-20 20:02 | NUR ---
WITH THE HELP OF CASSANDRA SANCHEZ WE HELPED THE PT ON AND OFF THE BED SHAH. CLEANED HER UP. BEDSIDE TABLE AND CALL LIGHT IN REACH. PT NEEDS NOTHING MORE AT THIS TIME.
--- NOTE | 2018-09-20 20:25 | NUR ---
ASSESSMENT COMPLETE, REFER TO ASSESSMENT. MEDICATIONS ADMINISTERED PER MAR ORDER. PATIENT DENIES PAIN, SOB OR DIFFICULTY BREATHING. 1 L VIA NC, NO SIGNS OF DISTRESS. CENTRAL LINE ASSESSED, GOOD BLOOD RETURN, HEP LOCKED PER ORDER. PATIENT SITTING ON SIDE OF BED PER PATIENT REQUEST WITH BOTTOM TURNER AT BEDSIDE. INCISIONS ON ABD ASSESSED, NO NEW DRAINAGE NOTED, STERI STRIPS APPEAR TO BE LIFTING UP SLIGHTLY ON TWO OF THE INCISION SITES. SCDS IN PLACE. PATIENT REPORTS ITCHING BACK, BOTTOM TURNER APPLIED LOTION TO BACK. REDNESS NOTED IN PANNIS AND MELL REGION, SCHEDULED NYSTAIN POWER AND CREAM APPLIED, PILLOW CASE PLACED IN P[place] REGION. REPOSITIONED PATIENT IN BED. PATIENT DISORIENT TO MONTH, EASILY REORIENTED. CALL LIGHT WITHIN REACH. NO MORE NEEDS AT THIS TIME.
--- NOTE | 2018-09-20 20:38 | NUR ---
VITALS AND I&OS DONE AND CHARTED. WITH THE HELP OF CASSANDRA SANCHEZ WE GOT PT TO THE SIDE OF THE BED. PER PT REQUEST. MANASA CONTINUED TO SIT WITH HER UNTIL SHE WAS READY TO LAY BACK DOWN.
--- NOTE | 2018-09-20 21:30 | NUR ---
patient asked to be put back on the bed feliciano and result with a small. RN Kirstie assisted me with this.
--- NOTE | 2018-09-20 22:23 | NUR ---
patient requseted more lotion to be applied to her back. She did not need anything else at this time.
--- NOTE | 2018-09-20 22:24 | NUR ---
VS and I&O's were complete.
--- NOTE | 2018-09-21 00:26 | NUR ---
PT IS SLEEPING AT THIS TIME WITH BI-PAP ON. NO CONCERNS NOTED.
--- NOTE | 2018-09-21 01:33 | NUR ---
ROUNDED ON PATIENT RESTING IN BED WITH EYES CLOSED, RESPIRATORY RATE IS EVEN AND UNLABORED. HR ON TELE #2: [phone]. CALL LIGHT WITHIN REACH.
--- NOTE | 2018-09-21 02:40 | NUR ---
ASSESSMENT COMPLETE, REFER TO ASSESSMENT. PATIENT REMOVED BIPAP AND REQUESTED TO BE OFF BIPAP WHILE PATIENT WATCHED TV. PATIENT HAD INCONTINENT EPISODE IN BED. PLACED PATIENT ON BEDPAN. FULL LINEN CHANGE COMPLETE. ATTENDS IN PLACE. REPOSITIONED PATIENT IN BED. SCDS IN PLACE. PATIENT REPORTED A "HEADACHE" AN "8/10", PRN PAIN MEDICATION ADMINISTERED PER AUG ORDER. STERISTRIPS ON ABDOMEN STILL IN PLACE, NO NEW DRAINAGE NOTED. BARRIER CREAM APPLIED TO BUTTOCKS FOR REDNESS/IRRITATION. NO SIGNS OF DISTRESS. PATIENT DENIES CHEST PAIN, SOB OR DIFFICULTY BREATHING. CALL LIGHT WITHIN REACH. NO MORE NEEDS AT THIS TIME.
--- NOTE | 2018-09-21 03:05 | NUR ---
ROUNDED ON PATIENT LAYING AWAKE IN BED WATCHING TV. PATIENT REQUESTED TO BE PLACE ON BED SHAH. PATIENT NOW OFF BEDPAN. CALL LIGHT WITHIN REACH. NO MORE NEEDS AT THIS TIME.
--- NOTE | 2018-09-21 03:22 | NUR ---
THIS RN NOTIFED FROM ESTATE ATTORNEY THAT PATIENT WOULD LIKE PRN BREATHING TREATMENT. THIS RN NOTIFED RESPIRATORY THERAPIST. FOCUSED RESPIRATORY ASSESSMENT COMPLETE. PATIENT REPORTING FEELING SOB. PATIENT DENIED WANTING TO BE REPOSITIONED IN BED. RESPIRATORY THERAPIST IN ROOM WITH PATIENT AT THIS TIME.
--- NOTE | 2018-09-21 03:48 | NUR ---
ROUNDED ON PATIENT TO ANSWER PATIENT CALL LIGHT. PATIENT LAYING AWAKE IN BED AND REQUESTED TO BE ON BEDPAN. PATIENT OFF BEDPAN. NEW LINEN PLACED ON BED. CALL LIGHT WITHIN REACH. NO MORE NEEDS AT THIS TIME.
--- NOTE | 2018-09-21 05:48 | NUR ---
PT REMOVED BIPAP, SHE SAID THE MASK WAS HURTING. SHE IS BACK ON 2 LNC AND DENIES FURTHER NEEDS AT THIS TIME. CALL LIGHT IS WITHIN REACH.
--- NOTE | 2018-09-21 06:01 | NUR ---
ROUNDED ON PATIENT LAYING AWAKE IN BED WATCHING TV. PATIENT REPORTS PAIN IS A "5/10". READJUSTED PATIENT'S SCDs PER PATIENT REQUEST. CALL LIGHT WIHTIN REACH. NO MORE NEEDS AT THIS TIME.
--- NOTE | 2018-09-21 06:03 | NUR ---
PATIENT SLEPT ON AND OFF THROUGHOUT THE NIGHT. PATIENT SLEPT WITH BIPAP. 2 L VIA NC. PRN NEB TREATMENT X1 THIS SHIFT. SCHEDULED NYSTATIN CREAM/POWDER APPLIED PER MAR ORDER AROUND PERIAREA AND PANNIS REGION. PATIENT USED BEDPAN, OCCASIONALLY INCONTINENT. USES CALL LIGHT APPROPRIATELY. TELE MONITOR 2, HR: 80'S, HR INCREASED TO 130'S ON TELE OCCASIONALLY DURING THE NIGHT THAT WAS NOT SUSTAINED AND WOULD RETURN BACK TO 80'S, PATIENT DENIED CHEST PAIN. CENTRAL LINE, GOOD BLOOD RETURN, HEP LOCKED PER ORDER. PRN PAIN MEDICATION X1 FOR REPORTED HEADACHE.
--- NOTE | 2018-09-21 06:50 | NUR ---
ROUNDED ON PATIENT LAYING AWAKE IN BED. MEDICATION ADMINISTERED PER AUG ORDER. CENTRAL LINE ASSESSED, GOOD BLOOD RETURN NOTED INITIALLY BY THIS RN. WHEN ATTEMPTING TO PULL BACK BLOOD TO DISCARD BEFORE OBTAINING MORNING LAB DRAWS, RESISTANCE WAS MET BY CHARGE NURSE BRO WEISS, IT WAS NOTED A PLAQUE WAS PRESENT IN SYRINGE, SYRINGE DETACHED FROM PATIENT WITH PLAQUE PRESENT AND DISCARDED. BRO WEISS ABLE TO OBTAIN SAMPLE FOR MORNING LABS PER ORDER. PATIENT TOLERATED WELL. PATIENT HEP LOCKED. CALL LIGHT WITHIN REACH. PATIENT DENIES ANY NEEDS AT THIS TIME.
--- NOTE | 2018-09-21 08:00 | NUR ---
PATIENT RESTING IN BED. PATIENT USES BEDPAN. TWO PERSON ASSISTING. PATIENT TRANSFERRED TO CHAIR. PATIENT USES A WALKER. TWO PERSON ASSISTING. LINENS CHANGED. CALL LIGHT WITHIN REACH. ICE WATER GIVEN. CALL LIGHT WITHIN REACH. NO OTHER NEEDS AT THIS TIME
--- NOTE | 2018-09-21 08:45 | NUR ---
PT ASSISTED UP TO CHAIR FOR BREAKFAST, ASSESSMENT COMPLETED AND AM MEDS ADMINISTERED. PT REPORTS ELEVATED PAIN TO ABDOMINAL SX SITE AFTER TRANSFER. PRN PO OPIOD ADMINISTERED PER PT REQUEST -SEE EMAR. PT ASSISTED WITH RECLINING IN CHAIR AND FEET ELEVATED ON PILLOW, WARM BLANKET ALSO PROVIDED AND PT STATES SHE IS COMFORTABLE. FRESH ICE WATER AND CALL LIGHT IN REACH. FAMILY AT BEDSIDE. PT DENIES FURTHER NEEDS/CONCERNS.
--- NOTE | 2018-09-21 09:26 | NUR ---
PATIENT SITTING UP IN CHAIR. VITAL SIGNS AND I&O DONE. CALL LIGHT WITHIN REACH. NO OTHER NEEDS AT THIS TIME
--- NOTE | 2018-09-21 10:39 | NUR ---
PATIENT SITTING UP IN CHAIR. SON IN ROOM. PATIENT ASKS FOR LOTION TO PUT IN HER LEGS. THIS SMALL ANIMAL CARETAKER PUT LOTION ON PATIENT'S LEGS. CALL LIGHT WITHIN REACH. NO OTHER NEEDS AT THIS TIME
--- NOTE | 2018-09-21 14:05 | NUR ---
PATIENT ASSISTED TO USE BEDPAN. TWO PERSON ASSISTING. VITAL SIGNS AND I&O DONE. CALL LIGHT WITHIN REACH. NO OTHER NEEDS AT THIS TIME
--- NOTE | 2018-09-21 15:35 | NUR ---
PT SITTING UP IN BED, VISITING WITH FAMILY. PT IS ALERT AND ORIENTED TO PERSON PLACE AND SITUATION. SCHEDULED MEDS ADMINISTERED. ASSESSMENT COMPLETED. CALL LIGHT AND H2O IN REACH. PT DENIES SOB, PAIN OR ANY OTHER SYMPTOMS, CONCERNS OR NEEDS.
--- NOTE | 2018-09-21 17:00 | NUR ---
PTS FAMILY MEMBER TO NURSES STATION STATING PT WOULD LIKE TO TALK TO A NURSE. THIS RN TO BEDSIDE. PT STATES SHE DOES NOT WANT TO WEAR BIPAP MACHINE BECAUSE "IT WON'T LET ME BREATH." EDUCATION DONE REGARDING WHY THE BIPAP IS NECESSARY. DINNER ARRIVES. PT SITTING UP TO EAT DINNER. REPSIRATORY THERAPY CALLED TO ADJUST BIPAP AND DO EDUCATION WITH PT FOR LATER USE. PT DENIES ADDITIONAL REQUESTS OR COMPLAINTS AT THIS TIME. CALL LIGHT WITHIN REACH. FAMILY AT BEDSIDE.
--- NOTE | 2018-09-21 17:59 | NUR ---
PATIENT SITTING UP IN BED. FAMILY IN ROOM. VITAL SIGNS AND I&O DONE. CALL LIGHT WITHIN REACH. NO OTHER NEEDS AT THIS TIME
--- NOTE | 2018-09-21 18:48 | NUR ---
PTS FAMILY REPORTS THEY ARE LEAVING AND PT IS READY TO SLEEP. THIS RN TO BEDSIDE. BIPAP PLACED AND ACTIVATED. PT REPORTS MASK IS COMFORTABLE. BED RAILS UP. CALL LIGHT WITHIN REACH.
--- NOTE | 2018-09-21 19:25 | NUR ---
SHIFT REPORT RECEIVED FROM DAYSUTFT ISELA KUHN AT BEDSIDE. PT RESTING IN BED, EYES CLOSED, RR WNL. BIPAP IN PLACE, PT APPEARS COMFORTABLE. BOARD UPDATED, CALL LIGHT IN REACH.
--- NOTE | 2018-09-21 20:15 | NUR ---
ASSESSMENT COMPLETE. SCHEDULED MEDICATIONS GIVEN (SEE EMAR) WITHOUT CONCERN. BIPAP REMOVED TO TAKE MEDICATIONS. 1LNC IN PLACE. PT A/OX3, DENIES PAIN. LAP SITES NOTED, NO NEW DRAINAGE OR SHADOWING NOTED. SCATTERED BRUISING NOTED ON BODY. REDDNESS NOTED ON ABDOMEN, PT DENIES DISCOMFORT OR ITCHING. PT REPOSITIONED, CALL LIGHT IN REACH. CENTRAL LINE HEP LOCKED PER POLICY. NO FURTHER NEEDS. BIPAP OFF AT THIS TIME, PT VISITING WITH FAMILY.
--- NOTE | 2018-09-21 20:59 | NUR ---
VITALS AND I&OS DONE AND CHARTED. BEDSIDE TABLE AND CALL LIGHT IN REACH.
--- NOTE | 2018-09-21 22:10 | NUR ---
PT RESTING IN BED, EYES CLOSED, RR WNL. BIPAP IN PLACE, NO DISTRESS NOTED. CALL LIGHT IN REACH.
--- NOTE | 2018-09-21 23:07 | NUR ---
HELPED PT GET ON AND OFF THE BEDPAN. CLEANED HER UP. BEDSIDE TABLE AND CALL LIGHT IN REACH. PT NEEDS NOTHING MORE AT THIS TIME.
--- NOTE | 2018-09-22 00:45 | NUR ---
BIPAP IN PLACE, RR WNL. PT APPEARS COMFORTABLE, CALL LIGHT IN REACH.
--- NOTE | 2018-09-22 01:53 | NUR ---
HELPED PT GET ON AND OFF THE BEDPAN. WITH THE HELP OF ISELA YOUNG WE REPOSITIONED PT IN BED TO HER COMFORT. GAVE HER A DRINK OF WATER. BEDSIDE TABLE AND CALL LIGHT IN REACH.
--- NOTE | 2018-09-22 02:39 | NUR ---
WITH THE HELP OF ISELA CRABTREE WE DID A COMPLETE BED CHANGE TWICE DUE TO INCONTINENCE OF BM. BEDSIDE TABLE AND CALL LIGHT IN REACH. FRESH WATER GIVEN. GARBAGES EMPTIED. HOT BLANKET GIVEN WELL. PT NEEDS NOTHING MORE AT THIS TIME.
--- NOTE | 2018-09-22 03:05 | NUR ---
PT CALLS TO REQUEST PAIN MED FOR 8/10 PAIN IN HEAD, NECK AND SHOULDERS. 5MG PO OXYCODONE GIVEN.
--- NOTE | 2018-09-22 03:30 | NUR ---
ASSESSMENT COMPLETE. PT WAS RECENTLY GIVEN ONE PAIN PILL FOR 7/10 PAIN BY FLODARYL PHILIPPE. PT DENIES NEED FOR FURTHER INTERVENTION. PT A/OX3. DISCUSSED WITH PT BENEFITS AND REASIONING FOR COMPLIANCE IN BIPAP MACHINE, PT VERBALIZED UNDERSTANDING AND AGREES TO WEAR BIPAP MACHINE. RT CALLED FOR BIPAP PLACEMENT. PT DENIES FURTHER NEEDS, NO NEW CONCERNS. CALL LIGHT IN REACH.
--- NOTE | 2018-09-22 03:40 | NUR ---
RT IN ROOM TO PLACE BIPAP MACHINE. CALL LIGHT IN REACH.
--- NOTE | 2018-09-22 04:34 | NUR ---
PT SLEPT FOR MOST OF THE SHIFT. PT A/OX3, PAIN CONTROLLED WITH PRN PAIN MEDICATIONS. PT ON REGULSR DIET, TOLERATING WELL, BT ACTIVE. NO NAUSEA THIS SHIFT. VSS, 1LNC DURING THE DAY, BIPAP AT NIGHT. 2PA, PIVOT ASSIST PER SHIFT REPORT, PT HAD LAYED IN BED THIS SHIFT, REPOSITONED PRN. BEDPAN PRN FOR VOIDINGS, SCHEDULED LACTULOSE. CENTRAL LINE, HEP LOCKED, BLOOD RETURN NOTED. PT USES CALL LIGHT APPROPERIATELY.
--- NOTE | 2018-09-22 06:56 | NUR ---
scheduled thyroid medication given. lotion provided per pt request for dry itchy skin. no further needs, call light in reach.
--- NOTE | 2018-09-22 07:10 | NUR ---
pt resting supine in bed with hob elevated to 35 degrees. Bipap on, eyes closed and pt appears to be sleeping comfortably. Call light and h20 in reach.
--- NOTE | 2018-09-22 08:12 | NUR ---
pt sitting up in bed watching tv, assessment completed. pt a/o this morning. Call light and h20 in reach. Assessment completed. AM meds administered. Pt assisted with brushing her teeth. Fresh ice water provided. Pt denies further needs/concerns.
--- NOTE | 2018-09-22 08:45 | NUR ---
ASSESSMENT COMPLETE, SCHEDULED MEDICATIONS GIVEN WITHOUT CONCERN. PT A/OX3, DENIES PAIN. CENTRAL LINE HEP LOCKED ON DAYSHIFT, DRESSING INTACT. FRESH CRACKERS PROVIDED ALONG WITH WATER PER PT REQUEST. FAMILY IN ROOM VISITING, PT ON 1LNC. DENIES SOB OR CHEST PAIN. RECENTLY REPOSITIONED IN BED. NO FURTHER NEEDS, CALL LIGHT IN REACH.
--- NOTE | 2018-09-22 10:32 | NUR ---
Pt sitting up in bed conversing with family, 1lpnc continues. IV mag now infusing. Call light and h20 in reach. Pt denies further needs/concerns.
--- NOTE | 2018-09-22 14:13 | NUR ---
PT RESTING UP IN CHAIR, LACTULOSE ADMINISTERED. ASSESSMENT COMPLETED. PT DENIES SOB OR PAIN PT REMAINS ON 1LPNC. CALL LIGHT AND H20 IN REACH. WARM BLANKET AND ICE WATER PROVIDED. PT DENIES FURHTER NEEDS/CONCERNS.
--- NOTE | 2018-09-22 18:45 | NUR ---
ASSISTED GEN WEISS IN CLEANING PATIENT. PATIENT DENIES ANY COMMENTS, QUESTIONS OR CONCERNS. NO FURTHER NEEDS NOTED. CALL TATIANA LEOS.
--- NOTE | 2018-09-22 19:16 | NUR ---
PT HAD A GOOD DAY, LOTS OF VISITORS. PT HAS REMAINED A/O THROUGHOUT THE SHIFT. PT TOLERATING PO FLUIDS AND APPETITE CONTINUES TO IMPROVE. PT USES CALL LIGHT APPROPRIATLEY AND IS HEAVY 2PERSON PIVOT TO CHAIR WITH FWW OR USE TRINO. PT TO DISCHARGE TOMORROW ONCE BIPAP IS AVAILABLE AT [facility] CONFIRM BIPAP AVAILABILITY IN AM. PT TOLERATES 1LPNC SATTING IN MID 90'S WITH NO SOB OR PAIN.
--- NOTE | 2018-09-22 19:25 | NUR ---
SHIFT REPORT RECEIVED FROM HOWARD KUHN AT BEDSIDE. PT AWAKE, RR WNL. 1LNC IN PLACE. PT IN BED, LIBRARY HISTORIAN X2 IN ROOM TO CHANGE PT AFTER INCONTINENT BM. PT DENIES FURTHER NEEDS, CALL LIGHT IN REACH.
--- NOTE | 2018-09-22 19:43 | NUR ---
WITH THE HELP OF CASSANDRA CABRALES WE DID A COMPLETE BED CHANGE FROM AN EXTRA LARGE LIQUID BM. DID WIPE DOWN ON HER. APPLIED BARRIER CREAM. BEDSIDE TABLE AND CALL LIGHT IN REACH. REPOSITIONED HER TO HER COMFORT IN BED. PT NEEDS NOTHING MORE AT THIS TIME.
--- NOTE | 2018-09-22 23:30 | NUR ---
PT RESTING IN BED, BIPAP IN PLACE. NO DISTRESS NOTED. PT APPEARS COMFORTABLE. FAMILY IN ROOM DOING CRAFTS AT BEDSIDE. CALL LIGHT IN REACH.
--- NOTE | 2018-09-23 00:34 | NUR ---
PT ON BIPAP, RR WNL, EYES CLOSED. NO DISTRESS NOTED. PT APPEARS COMFORTABLE. FAMILY IN ROOM COMPLETING CRAFTS. NO NEEDS, CALL LIGHT IN REACH.
--- NOTE | 2018-09-23 04:25 | NUR ---
ASSESSMENT COMPLETE, NO NEW CONCERNS. PT RESTING IN BED, EYES CLOSED, RR WNL. NO DISTRESS NOTED. RT IN ROOM TO COMPLETE THEIR ROUNDING. BIPAP IN PLACE. CENTRAL LINE DRESSING INTACT, BLOOD RETURN NOTED, HEP LOCKED AT THIS TIME. FAMILY IN ROOM ALSO RESTING. NO NEEDS, CALL LIGHT IN REACH.
--- NOTE | 2018-09-23 04:57 | NUR ---
PT HAD UNEVENTUL NIGHT, SLEPT ON AND OFF THIS SHIFT. PT A/OX3, DENIED PAIN ALL SHIFT. FAMILY HAS BEEN IN ROOM WITH PT. HEP LOCKED WITH GOOD BLOOD RETURN. 1LNC, BIPAP AT NIGHT, NEEDS ENCOURAGEMENT WITH BIPAP COMPLIANCE. PT HEAVY 2PA PIVOT TRANSFER TO BSC. PT VOIDING QS, 1BM THIS SHIFT. USES CALL LIGHT APPROPERIATELY.
--- NOTE | 2018-09-23 06:16 | NUR ---
scheduled thyroid med given. rt called for prn breathing treatment per pt request.
--- NOTE | 2018-09-23 08:30 | NUR ---
PT SITTING UP IN BED WATCHING TV. DENIES PAIN, NAUSEA, OR OTHER CONCERNS AT THIS TIME. ATE MOST OF BREAKFAST THIS AM, INDEPENDENTLY, [place] [employer]. LAP SITES NOTED, CLEAN AND DRY, WELL APPROXIMATED, STERI STRIPS IN PLACE. SCATTERED SCABS GENERALIZED ACROSS ENTIRE BODY. BLISTER LIKE AREA MIDLINE ABD , APPEARS TO BE WHERE PREVIOUS DRESSING MAY HAVE BEEN. DRY AND CRUSTY. PT ALERT AND ORIENTED THIS AM WITH FLAT AFFECT. CALLS APPROPRIATELY. CALL LIGHT WITHIN REACH.
[2018-09-23] MEDS ORDERED: MAGNESIUM400 M1 PO (09:22)
--- NOTE | 2018-09-23 09:30 | NUR ---
TALKED TO DORIE AND SHE IS GOING TO TALK WITH ALYSS[facility] TO SEE IF THEY CAN RENT A BIPAP FOR PT TO USE WHILE SHE IS THERE. SHE IS ALSO GOING TO TALK TO IN HOME MED ABOUT WHAT IS REQUIRED FOR HER TO HAVE THE BIPAP MACHINE
--- NOTE | 2018-09-23 09:37 | NUR ---
TALKED TO ESTEFANIA REGARDING RN NOTIFY FROM DR VALENTINO. STATES SHE IS WORKING ON IT.
--- NOTE | 2018-09-23 11:00 | NUR ---
SHE IS STILL WAITING FOR ANSWERS ABOUT BIPAP. AND ISN'T FEELING REAL SECURE ABOUT THE FOLLOW UP AFTER TIME IN SNF IS GOING TO BE.
--- NOTE | 2018-09-23 11:34 | NUR ---
PT SITTING UP IN BED VISITING WITH FAMILY. DENIES NEEDS OR CONCERNS AT THIS TIME. CALL LIGHT WITHIN REACH.
--- NOTE | 2018-09-23 12:41 | NUR ---
PATIENT TRANSFERED FROM BSC TO SHOWER CHAIR, 2PA FWW. MELL CARE, SKIN CARE DONE. LINENS CHANGED. NEW GOWN PROVIDED. PATIENT TRANSFERED FROM SHOWER CHAIR TO BED, 2PA, FWW. CALL LIGHT IN REACH. NO FURTHER NEEDS AT THIS TIME.
--- NOTE | 2018-09-23 12:42 | NUR ---
GOT THE PAPERS FAXED TO DR MADRID FOR A REFERRAL. GOT AN APPOINTMENT FOR DR MADRID, DR SARAH, AND DR VALENTINO.
--- NOTE | 2018-09-23 14:23 | NUR ---
PT 2PA WITH WALKER TO BSC, [employer]. VOIDED WITHOUT DIFFICULTY. BACK TO BED. SCD'S ON. CALL LIGHT WITHIN REACH.
--- NOTE | 2018-09-23 15:50 | NUR ---
CARE CONFERENCE ATTENDEES: PT, PTS DAUGHTER ALPHONSO, GRANDSON INGE, PT SISTER AND HER WILL AND PHYLICIA, BROTHER MEAGAN. MYSELF FROM CASE MANAGEMENT, CONSULTING WITH DR GE. AFTER SEVERAL CONVERSATIONS WITH FAMILY AND PT, WE ENTERED THE CONVERSATION ABOUT THE PT GOING ONTO HOSPICE. THE FAMILY AFTER HAVING THIS EXPLAINED TO THEM AND THE THINGS THAT ARE AVAILABLE FOR THE PT LIKE HOSPITAL BED, MEDICATIONS. ETC. THE FAMILY HAD STATED EARLIER THAT THEY DIDN'T WANT HER ASSETS BEING EATEN UP BY MEDICAID SO THEY DIDN'T WANT TO DO THAT IF AT ALL POSS. JUSTING ASKED IF THERE WAS A SET AMOUNT OF TIME SHE COULD LIVE BEFORE THEY WOULD KICK HER OFF OF HOSPICE, EXPLAINED THAT NO THERE IS NOT A SET TIME THEY JUST HAVE TO RECERTIFY EVERY SO OFFTEN. FAMILY DENIED ANY FURTHER QUESTIONS AT THIS TIME. LEFT A MESSAGE FOR DR VALENTINO TO SEE IF THIS WAS OK.
--- NOTE | 2018-09-23 17:20 | NUR ---
PT SITTING UP IN BED EATING DINNER, VISITING WITH FAMILY. DENIES NEEDS OR CONCERNS AT THIS TIME. CALL LIGHT WITHIN REACH.
--- NOTE | 2018-09-23 18:18 | NUR ---
PATIENT SITTING UP IN BED WATCHING TV. FRESH WATER GIVEN. MELL CARE DONE. CALL LIGHT IN REACH. NO FURTHER NEEDS AT THIS TIME.
--- NOTE | 2018-09-23 19:35 | NUR ---
SHIFT REPORT RECEIVED FROM DAYSHIFT ISELA EPPS. PT AWAKE, 1LNC IN PLACE. PT DENIES NEEDS, APPEARS COMFORTABLE AND IS VISITING WITH FAMILY. CALL LIGHT IN REACH.
--- NOTE | 2018-09-23 21:45 | NUR ---
ASSESSMENT COMPLETE, SCHEDULED MEDICATIONS GIVEN (SEE EMAR). PT A/OX3, RATES PAIN 8/10. HALF 5MG OXYCODONE GIVEN PER PT REQUEST. VSS. PT RESTING IN BED, 1LNC IN PLACE. FAMILY IN ROOM. SCD'S IN PLACE. FAMILY VERBALIZED CURIOSITY REGARDING SMALL REDDENED AREA ON RIGHT SHOULDER BLADE. AREA BLANCHABLE. WILL MONITOR. PT AND FAMILY DENY FURTHER NEEDS OR CONCERNS. CALL LIGHT IN REACH.
--- NOTE | 2018-09-23 22:55 | NUR ---
WITH HELP FROM ISAAC WEISS, PT CLEANED UP AFTER BM. MELL CARE COMPLETE. PT DENIES FURTHER NEEDS, CALL LIGHT IN REACH.
--- NOTE | 2018-09-23 23:37 | NUR ---
V/S AND I&O DONE AND CHARTED. 2 PA. PATIENT USED BED SHAH AND HAD BOWEL MOVEMENT.
--- NOTE | 2018-09-24 00:36 | NUR ---
PT RESTING IN BED, BIPAP IN PLACE. NO DISTRESS NOTED, CALL LIGHT IN REACH. FAMILY IN ROOM.
--- NOTE | 2018-09-24 03:05 | NUR ---
ASSESSMENT COMPLETE. PT RECENTLY HAD LIQUID BM, WITH HELP FROM JAMEL TRUJILLO, PT CLEANED AND NEW ATTENDS IN PLACE. PRN TYLENOL GIVEN FOR 8/10 PAIN IN NECK. PT A/OX3, FAMILY IN ROOM. FRIEND APPLYING LOTION TO PT'S BACK D/T ITCHINESS PER PT REQUEST. BIPAP OFF AT THIS TIME, 1LNC IN PLACE. PT DENIES SOB. CALL LIGHT IN PLACE.
--- NOTE | 2018-09-24 04:18 | NUR ---
RT IN ROOM TO ASSIST WITH PLACEMENT OF BIPAP PER PT REQUEST.
--- NOTE | 2018-09-24 04:34 | NUR ---
PT HAD UNEVENTFUL NIGHT, SLEPT ON AND OFF. VSS, PT A/OX3. 1LNC WHEN AWAKE, BIPAP AT NIGHT, REQUIRES ENCOURAGEMENT WITH USE OF BIPAP AT TIMES. FAMILY HAS BEEN IN ROOM ALL NIGHT. REGULAR DIET, BOWEL TONES ACTIVE, NO NAUSEA. PT VOIDING QS, MULTIPLE BM THIS SHIFT, SCHEDULED LACTULOSE. CENTRAL LINE DRESSING INTACT, BLOOD RETURN, HEP LOCKED. PAIN CONTROLLED WITH PRN OXYCODONE, TYLENOL, AND REPOSITIONING PRN. PT USES CALL LIGHT APPROPERIATELY.
--- NOTE | 2018-09-24 05:28 | NUR ---
RT CALLED FOR PRN BREATHING TREATMENT PER PT REQUEST. PT ENCOURAGED TO DEEP BREATH UNTIL RT'S ARRIVAL. O2 SAT 90% ON 1LNC.
--- NOTE | 2018-09-24 06:21 | NUR ---
scheduled thyroid medication give. pt sitting at edge of bed, 1lnc in place. scd's off at this time per pt reuest while pt sits. no further needs, call light in reach.
--- NOTE | 2018-09-24 07:44 | NUR ---
PT SLEEPING AT THIS TIME. PT IS ON 1L OXYGEN AT THIS TIME, RESP EVEN AND NON LABORED. PT APPEARS COMFORTABLE. FLACC SCALE 0/10. PERSONAL SUPPLIES AND CALL LIGHT WITHIN REACH. NO NEEDS AT THIS TIME.
--- NOTE | 2018-09-24 08:30 | NUR ---
PATIENT CALLS TO USE BASE COMMODE. PATIENT SITTING UP IN BED. DAUGHTER IN ROOM. PATIENT STANDS UP USING A WALKER. TWO PERSON ASSISTING. PATIENT USES BASE COMMODE. LINENS CHANGED. PATIENT BACKS TO BED. TWO PERSON ASSISTING. PATIENT USING A CLEAN GOWUN. CALL LIGHT WITHIN REACH. NO OTHER NEEDS AT THIS TIME
--- NOTE | 2018-09-24 09:19 | NUR ---
PATIENT SITTING UP IN BED. VITAL SIGNS AND I&O DONE. CALL LIGHT WITHIN REACH. NO OTHER NEEDS AT THIS TIME
--- NOTE | 2018-09-24 13:24 | NUR ---
PATIENT SITTING UP IN BED. VITAL SIGNS AND I&O DONE. CALL LIGHT WITHIN REACH. NO OTHE NEEDS AT THIS TIME
--- NOTE | 2018-09-24 15:54 | NUR ---
PATIENT CALLS TO USE BASE COMMODE. PATIENT IN BED. PATIENT STANDS UP USING A WALKER. TWO PERSON ASSISTING. PATIENT USES A BASE COMMODE. PATIENT BACKS TO BED. CALL LIGHT WITHIN REACH. NO OTHER NEEDS AT THIS TIME
--- NOTE | 2018-09-24 17:11 | NUR ---
PT A&OX3. 1L NC, BIPAP AT NIGHT. HEP LOCKED TRIPLE LUMEN IJ. TOLERATING REGULAR DIET. 2 PERSON ASSIST TO COMMODE. OXY PO PRN FOR PAIN. LAP PRETTY BY CHICHO ON THE . CALLS APPROP.
--- NOTE | 2018-09-24 18:31 | NUR ---
PATIENT RESTING IN BED. VITAL SIGNS AND I&O DONE. FACE AND HANDS CLEANED. CALL LIGHT WITHIN REACH. NO OTHER NEEDS AT THIS TIME
--- NOTE | 2018-09-24 19:23 | NUR ---
RECIEVED BEDSIDE REPORT FROM ANGEL WEISS. PATIENT LAYING AWAKE IN BED. FAMILY AT BEDSIDE. PATINET DENIES ANY NEEDS AT THIS TIME. WHITE BOARD UPDATED.
--- NOTE | 2018-09-24 21:55 | NUR ---
ASSESSMENT COMPLETE. MEDICATIONS ADMINISTRED PER AUG ORDER. PATIENT REPORTS "8/10" PAIN IN ABD, PRN PAIN MEDICATION ADMINISTERED PER AUG ORDER. CENTRAL LINE ASSESSED, GOOD BLOOD RETURN, DRESSING IS CDI, HEP LOCKED PER ORDER. SCDS IN PLACE. PATIENT DENIES NAUSEA. SCHEDULED NYSTATIN APPLIED TO PANNIS AND AROUND PERIAREA PER AUG ORDER. 1.5L VIA NC, NO SIGNS OF DISTRESS. PATIENT DENIES SOB, OR DIFFICULTY BREATHING. PATIENT DENIES CHEST PAIN. LAP SITES ASSESSED, NO NEW DRAINAGE NOTED, STERI STRIPS APPEAR TO BE LIFTING ON EDGES. FAMILY AT BEDSIDE. REPOSTIONED PATIENT IN BED. PATIENT DENIES WANTING TO USE BIPAP TONIGHT. WARM BLANKET PROVIDED PER PATIENT REQUEST. NO MORE NEEDS AT THIS TIME.
--- NOTE | 2018-09-24 22:09 | NUR ---
V/S AND I&O DONE AND CHARTED. 2PA TO USE THE BEDSIDE COMMODE AND BACK TO BED. SCD ON.
--- NOTE | 2018-09-25 01:07 | NUR ---
ROUNDED ON PATIENT RESTING AWAKE IN BED. PATIENT REPORTS "8/10" PAIN IN ABD ON LEFT LOWER SIDE, PRN PAIN MEDICATION ADMINISTERED PER AUG ORDER. PATIENT REPORTS ITCHY BACK, LOTION APPLIED BY LEAD TECHNICIAN. CALL LIGHT WITHIN REACH. NO MORE NEEDS AT THIS TIME.
--- NOTE | 2018-09-25 03:45 | NUR ---
ROUNDED ON PATIENT RESTING IN BED WITH EYES CLOSED, RESPIRATORY RATE IS EVEN AND UNLABORED. CALL LIGHT WITHIN REACH. NO MORE NEEDS AT THIS TIME.
--- NOTE | 2018-09-25 04:55 | NUR ---
ASSESSMENT COMPLETE, REFER TO ASSESSMENT. PATIENT REPORTS "9/10" PAIN AND DESCRIBES THE PAIN A HEADACHE, PRN PAIN MEDICATION ADMINISTERED PER MAR ORDER. COOL CLOTH PROVIDED TO PATIENT FOR BACK OF NECK. SCDs IN PLACE. PATIENT DENIES CHEST PAIN, SOB OR DIFFICULTY BREATHING. PATIENT DENIES ANY NEEDS AT THIS TIME. CALL LIGHT WITHIN REACH. NO MORE NEEDS AT THIS TIME.
--- NOTE | 2018-09-25 05:43 | NUR ---
2 PA TO USE THE COMMODE AND BACK TO BED.
--- NOTE | 2018-09-25 05:44 | NUR ---
APPLIED BODY LOTION ON THE BACK PER PATIENT'S REQUEST.
--- NOTE | 2018-09-25 06:38 | NUR ---
ROUNDED ON PATIENT RESTING AWAKE IN BED WATCHING TV. MEDICATION ADMINISTERED PER AUG ORDER. FRESH WATER BROUGHT TO PATIENT PER PATIENT REQUEST. CALL LIGHT WITHIN REACH. NO MORE NEEDS AT THIS TIME.
--- NOTE | 2018-09-25 07:54 | NUR ---
0700: Pt resting in bed, call light within reach and the pt has no complaints at this time,.
--- NOTE | 2018-09-25 08:06 | NUR ---
PT CALLED TO USE BATHROOM, SHE USED THE BEDSIDE COMMODE AND WAS STABLE. UP TO CHAIR WITH BREAKFAST AND CALL LIGHT IN REACH.
--- NOTE | 2018-09-25 09:01 | NUR ---
RECEIVED NOTICE FROM DR GE THAT HE AND DR VALENTINO HAD TALKED AND WOULD LIKE TO HAVE THIS PT CHANGED TO A SWING BED. TOLD DR GE I WOULD BE GLAD TO SEND CLINICALS TO PT INSURANCE TO SEE IF WE COULD GET AN AUTH FOR SWING BED. THIS AM FAXED CLINICALS TO [employer] AND TALKED WITH INTAKE PERSON NAMED ALEXANDRIA ABOUT THIS AND SHE SAID TO FAX CLINICALS TO [phone]. FAX CLINICALS INCLUDING FACE SHEET, ER NOTES AND SUMMARY, H AND P, CONSULT, PROG NOTES, AND OP NOTE, PT AND OT EVALS AND NOTES TO THIS NUMBER. RECIEVED FAXED CONFIRMATION OF THIS.
--- NOTE | 2018-09-25 09:53 | NUR ---
Pt declined the nystatin as she states it was placed already this AM.
--- NOTE | 2018-09-25 11:12 | DS ---
[facility] [address], [place] [address] Signed ADMISSION DATE: 09/13/2018 DISCHARGE DATE: 09/20/2018 REASON FOR ADMISSION: This 73-year-old morbidly obese white woman lives in [place] with her daughter moving from [place], [place], three years ago. She presented to emergency room having two days of poor oral intake and not feeling well. She had no other specific pain. She had no other complaints. She does use home oxygen. She was evaluated by Dr. Brumfield, who showed her to have an elevated lactic acid of 2.6, bilirubin of 5.6, AST 197, ALT 147, alkaline phosphatase of 330. She had no abdominal tenderness. White count was normal at 10.9, hematocrit 34.8 with platelets of 230,000. Evaluation includes a gallbladder ultrasound, which showed gallstones with thickening of the gallbladder wall and heterogeneous liver parenchyma without focal mass. The ultrasound is followed by CT scan of the chest and abdomen, which confirmed those findings and hypoattenuated area of the liver not far from the gallbladder. She was admitted to [facility] for presumed acute calculous cholecystitis. PERTINENT PHYSICAL EXAMINATION: GENERAL: Showed a morbidly obese, white woman, 73 years of age. She is impressively plethoric in her abdomen. She is not tachypneic. She is mentating well. She appeared mildly jaundiced. NECK: Trachea was midline. LUNGS: She showed normal respiratory excursion without tachypnea. She had home oxygen in place. HEART: Regular. ABDOMEN: Massively obese. There are areas of excoriation of the abdominal wall from itching. There is no focal tenderness. EXTREMITIES: Show no clubbing, cyanosis, or edema. LABORATORY DATA: Lab studies were as described. HOSPITAL COURSE: She was admitted with the probability of acute calculous cholecystitis, so it was remarkable she had no particular tenderness or complaints of pain. She required Lasix for pulmonary edema following resuscitative intravenous fluids administered through the emergency room and admission. Her lab studies showed persistence of elevated bilirubin and liver enzymes. The Electronically Signed By: LIANNA VALENTINO MD 09/25/18 1112 PATIENT NAME: MICHELLE MYRICK DISCHARGE SUMMARY DATE OF : 49 REPORT #: [id number] PHYSICIAN: LIANNA VALENTINO MD PCP: ANUPAM SARAH DO REPORT IS CONFIDENTIAL AND NOT TO BE RELEASED WITHOUT AUTHORIZATION [facility] [address] [place] [id number] Signed hypoattenuated area of the right hepatic lobe adjacent to the gallbladder was considered possibly to be an abscess by the radiologist, but this was considered quite unlikely from my perspective as she was not systemically toxic. The patient had noted a longstanding COPD and history of hospitalization in [place], [place], at which time she was on a ventilator, hospitalized for 10 days with a medically induced coma. Concern was maintained for her possibility of recurrent problem with intubation for anesthesia. It had been anticipated she would undergo cholecystectomy. After full conference with her daughter and the patient, it was deemed appropriate to proceed to operation as her liver enzymes and so forth were unchanged and she remained jaundiced and thought was likely she had common duct stone accounting for her problem in part. On September 14, 2018, she underwent laparoscopy, where she was found to have no evidence of carcinomatosis or ascites, but multiple lesions of the liver highly suggestive of metastatic disease. The gallbladder was not able to be seen. It was densely fibrotic and completely unable to be even visualized. The lesions were highly suspicious for malignancy and core biopsies were obtained. A central venous jugular catheterization was undertaken as well as she has poor peripheral access. The findings of operation were reviewed with the patient and her daughter and other family members. She had difficulties postoperatively with significant tachycardia, which is considered PSVT requiring beta blockade. Consultation undertaken with hospitalist. 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 Of note, CEA level was 8 and CA 19-9 greater than 400, also consistent with biliary carcinoma. She was noted to have CO2 retention with a CO2 of 64 and a pH of 7.30 with normal oxygenation and fair amount of somnolence. This discordant finding was of uncertain etiology. An ammonia level was obtained, which was greater than 96. This was a testimony to hepatic insufficiency largely related to metastatic disease (tumor burden) of the liver. A BiPAP was used to improve her ventilation though it was not markedly beneficial initially. Lactulose was initiated, which allowed her to be far more alert and improvement of her ventilation was noted. Family conference was undertaken with the patient as well as her daughter, Angella, and other family members. The disease represents incurability. I believe her quite unlikely to tolerate a palliative chemotherapy of any sort. Special studies regarding liver biopsies were pending, but the initial pathology did Electronically Signed By: LIANNA VALENTINO MD 09/25/18 1112 PATIENT NAME: MICHELLE MYRICK DISCHARGE SUMMARY DATE OF : 49 REPORT #: [id number] PHYSICIAN: LIANNA VALENTINO MD PCP: ANUPAM SARAH DO REPORT IS CONFIDENTIAL AND NOT TO BE RELEASED WITHOUT AUTHORIZATION [facility] [address] [place] [place], [place] [address] Signed confirm well-differentiated adenocarcinoma and in my opinion most likely related to the gallbladder itself. The patient was anemic with hematocrit of 26, although she admitted to the hospital at 36 and plans had been made for colonoscopy, but due to her metabolic issues and despite a bowel prep colonoscopy not undertaken as it was deemed futile in the overall scheme of her management. Consideration was made for enrollment in the hospice program. Other family members from far away are driving to see her. She was transitioned to the regular nursing floor, where she underwent some diuresis with benefit. Continue use of lactulose and rifaximin allowing for good mentation and without decrease of hematocrit or any overt bleeding. My recommendation was for comfort care or hospice services rather than other interventions, which I believe to be futile. Further consideration is being made of those recommendations. She was made a do not intubate, do not resuscitate status while in the hospital after diagnosis established and after discussing with the patient and her daughter, September. She is discharged to [facility] at this point with further consideration of continued comfort measures primarily. Her primary physician is Dr. Sarah who has seen her even recently. Further discussions as to end of life care can be arranged with her primary care provider, Dr. Sarah, and possibly house physician Dr. Cespedes at [facility]. My recommendations are well known to the patient and her daughter. DISCHARGE MEDICATIONS: Include: 1. Rifaximin 550 mg p.o. b.i.d. 2. Tylenol 500 mg q.6 as needed for pain unlikely. 3. Lactulose 20 g/30 mL p.o. t.i.d. 4. Potassium chloride 10 mEq tablets one p.o. b.i.d. #14, no refill. 5. Lasix 20 mg p.o. daily #7, no refill. 6. Nystatin powder apply topically to areas that is affected by intertriginous yeast infection. 7. Allopurinol 100 mg p.o. daily. 8. Oxybutynin chloride 5 mg p.o. t.i.d. 9. Albuterol inhaler two puffs q.6 hours as needed for shortness of breath. 10. Multivitamin including lutein one tablet p.o. daily. 11. Synthroid 25 mcg tab p.o. daily. Electronically Signed By: LIANNA VALENTINO MD 09/25/18 1112 PATIENT NAME: MICHELLE MYRICK DISCHARGE SUMMARY DATE OF : 49 REPORT #: [id number] PHYSICIAN: LIANNA VALENTINO MD PCP: ANUPAM SARAH DO REPORT IS CONFIDENTIAL AND NOT TO BE RELEASED WITHOUT AUTHORIZATION [facility] [address] [place], [place] [address] Signed 12. Atenolol and chlorthalidone 50/25 one tablet p.o. daily. 13. Fluticasone (Advair Diskus) one puff b.i.d. 14. Vitamin D 5000 units p.o. daily. 15. Cetirizine (Zyrtec) 10 mg p.o. daily. DISCHARGE DIAGNOSES: 1. 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 2. Morbid obesity with chronic obstructive pulmonary disease and sleep apnea syndrome. 3. Status post laparoscopy with liver biopsy confirming adenocarcinoma. Additional studies pending (immunochemistries). 4. History of hypothyroidism. 5. Hypertension. 6. History of gout. MD SONIYA Aviles/MODL /[id number] cc: MD Yousuf Doan MD Arian Kargar, DO Russell Barr Harrison, MD Cynthia Rasch, MD Copies: ANIRUDH MILLER SHELDON MD KARGAR, ARIAN DO HARRISON,MALINI BASHIR MD Electronically Signed By: LIANNA VALENTINO MD 09/25/18 1112 PATIENT NAME: IMCHELLE MYRICK DISCHARGE SUMMARY DATE OF : 49 REPORT #: [id number] PHYSICIAN: LIANNA VALENTINO MD PCP: ANUPAM SARAH DO REPORT IS CONFIDENTIAL AND NOT TO BE RELEASED WITHOUT AUTHORIZATION [facility] [address] [place], [place] [address] Signed JAY JAY EDWARDS MD ~ Electronically Signed By: LIANNA VALENTINO MD 09/25/18 1112 PATIENT NAME: MICHELLE MYRICK DISCHARGE SUMMARY DATE OF : 49 REPORT #: [id number] PHYSICIAN: LIANNA VALENTINO MD PCP: ANUPAM SARAH DO REPORT IS CONFIDENTIAL AND NOT TO BE RELEASED WITHOUT AUTHORIZATION
--- NOTE | 2018-09-25 12:36 | NUR ---
PT SITTING IN CHAIR, ALERT AND ORIENTED. ENGAGED IN CONVERSATION REGARDING C-PAP. PT SEEMS TO BE STRUGGLING WITH USE. HAD GOOD DISCUSSION, PT ADMITTED THAT SHE DOES NOT SLEEP WELL. ENCOURAGED PT TO VISIT MORE WITH RT ABOUT ALL THE BENEFITS OF C-PAP. PT REQUESTED PRAYER, WILL FOLLOW NEEDED
--- NOTE | 2018-09-25 13:22 | NUR ---
PT STATES HER PAIN LEVEL IS A 7/10 AND WAS MEDICATED ORDERED. MICHELLE HAS NO OTHER COMPLAINTS AT THIS TIME. SAT ON 1L IS 99% AT THIS TIME.
--- NOTE | 2018-09-25 14:03 | NUR ---
Pt up walking around in her room with physical therapy and with her walker.
--- NOTE | 2018-09-25 16:07 | NUR ---
PHYSICAL THERECHEYANNE AND I HELPED HER GET IN THE SHOWER CHAIR. WASHED HER HAIR AND HER BODY. THAN GOT PUT A NEW GOWN ON. ALSO THE BED LINENS WERE CHANGED.
--- NOTE | 2018-09-25 17:47 | NUR ---
Pt eating dinner at this time and is visiting with her family. Pt denies any problems at this time.
--- NOTE | 2018-09-25 19:40 | NUR ---
REPORT RECEIVED, PT RESTING IN BED VISITING WITH FAMILY. PT ON 1.5LNC, NO C/O SOB/CP, DENIES ANY NEEDS AT THIS TIME, CALL LIGHT WITHIN REACH.
--- NOTE | 2018-09-25 20:48 | NUR ---
VITALS DONE AND CHARTED.
--- NOTE | 2018-09-25 21:15 | NUR ---
EVENING MEDS ADMINISTERED, PT AOX4, APPROPRIATE, CENTRAL LINE HEPARIN LOCKED, GOOD BLOOD RETURN, ASSESSMENT COMPLETE, NYSTATIN CREAM APPLIED UNDER PT'S PANNUS, SOME REDNESS NOTED UNDER PT'S PANNUS ON LEFT SIDE, NYSTATIN POWDER PLACED UNDER PT'S BILATERAL BREASTS. LOTION APPLIED TO PT'S FEET/ANKLES, PT ASSISTED UP TO BSC WITH 1 PERSON ASSIST/FWW, PT TOLERATED WELL, ON 1.5LNC, NO C/O SOB/CP, PT BACK TO BED, ABLE TO ASSIST WITH REPOSTIONING SELF WELL, SCD'S ON, CALL LIGHT WITHIN REACH. FALL PRECAUTIONS IN PLACE.
--- NOTE | 2018-09-25 23:00 | NUR ---
PT RESTING IN BED, ON BIPAP, BREATHS EVEN, UNLABORED, NO REQUESTS AT THIS TIME, CALL LIGHT WITHIN REACH. FALL PRECAUTIONS IN PLACE.
--- NOTE | 2018-09-26 01:10 | NUR ---
PT RESTING IN BED, BIPAP ON, NO NEEDS AT THIS TIME, EYES CLOSED, BREATHS EVEN, UNLABORED, CALL LIGHT WITHIN REACH.
--- NOTE | 2018-09-26 03:15 | NUR ---
PT AWAKE, AMBULATED TO [place] WITH 1 PERSON ASSIST/FWW, PT TOLERATED WELL. PT BACK TO BED, C/O 8/10 PAIN IN ABDOMEN AND FRAGOSO, PT GIVEN PRN PAIN MEDICATION PER EMAR WNL, PER PT'S REQUEST, PT ALSO C/O ITCHING IN LEGS REQUESTING LOTION TO BE APPLIED, LOTION APPLIED PER PT'S REQUEST, PT NOTED RELIEF, DENIES FURTHER NEEDS AT THIS TIME, NO C/O SOB/CP, ON BIPAP THIS NIGHT, PT ENCOURAGED TO DRINK CALL LIGHT WITHIN REACH. SCD'S ON.
--- NOTE | 2018-09-26 04:55 | NUR ---
PT AOX4 THIS SHIFT, APPROPRIATE, PT 1 PERSON ASSIST/FWW, GOT UP SEVERAL TIMES TO VOID THIS SHIFT, TOLERATED WELL. VSS, PT RECEIVED PRN PAIN MEDICATION X1 THIS SHIFT FOR PAIN RELATED TO ABDOMEN WELL FRAGOSO, NYSTATIN CREAM UNDER PT'S PANNUS, AND NYSTATIN POWDER APPLIED UNDER PT'S BREASTS, LOTION APPLIED TO PT'S ANKLES/FEET PER PT'S REQUEST FOR ITCHING, TOLERATING REGULAR DIET, PO FLUIDS ENCOURAGED. CENTRAL LINE HEPARIN LOCKED. CALLS APPROPRIATLEY.
--- NOTE | 2018-09-26 04:58 | NUR ---
PT RESTING IN BED, EYES CLOSED, BREATHS EVEN, UNLABORED, ON BIPAP, CALL LIGHT WITHIN REACH. FALL PRECAUTIONS IN PLACE.
--- NOTE | 2018-09-26 06:44 | NUR ---
LOTION PLACED ON PT'S BACK PER PT'S REQUEST, PT REPOSTIONED IN BED WELL. ON 1LNC, NO C/O SOB/CP, NO C/O PAIN, NO REQUESTS AT THIS TIME, CALL LIGHT WITHIN REACH. SCD'S ON.
--- NOTE | 2018-09-26 07:52 | NUR ---
MORNING ASSESSMENT DONE. PATIENT UP TO COMMODE TO VOID 200ML OF DARK OSWALDO URINE. WALKER AND ONE PERSON ASSIST USED TO TRANSFER PATIENT. PATIENT CURRENTLY UP TO CHAIR. PATIENT RATES ABD PAIN 6/10 AND PLAN TO GIVE PAIN MEDICATIONS AT 0900. PATIENT STATES BREAKFAST IS ORDERED, DENIES NAUSEA, DENIES OTHER NEEDS AT THIS TIME.
--- NOTE | 2018-09-26 10:27 | NUR ---
CLEANING DONE OF SKIN FOLDS UNDER PANNUS AND BREASTS. SKIN INTACT WITH NO REDNESS. ANTIFUNGAL APPLIED.
--- NOTE | 2018-09-26 10:51 | NUR ---
PATIENT UP TO AMBULATE IN HALLWAY A SHORT DISTANCE WITH PHYSICAL THERAPY.
--- NOTE | 2018-09-26 11:50 | NUR ---
PT APPEARS TO BE FEELING BETTER TODAY-HER DAUGHTER CAME BY AND THAT BRIGHTENED DAY. GAVE PT A COPY OF LYNETTE AND HIGHLIGHTED A STORY OF A DOG. THAT BROUGHT UP A MEMORY OF A DOG FROM HER CHILDHOOD. EXTENDED A BLESSING, WILL FOLLOW NEEDED
--- NOTE | 2018-09-26 14:00 | NUR ---
DISCUSSED WITH DAUGHTER AND PATIENT POSSIBLE DISCHARGE PLANS FOR GOING HOME WHEN CPAP ARRIVES. DAUGHTER IS ARRANGING FOR PATIENT TO HAVE ROOM AT HOME THAT IS CLOSER TO THE BATHROOM.
--- NOTE | 2018-09-26 14:56 | NUR ---
Patient has been alert, oriented, and pleasant throughout my interactions with her today. Vital signs and assessments have been stable. She has been abulating well with a 1 person assist. Surgical wounds are healing withing normal limits. Skin and skin folds has been moist and intact.
--- NOTE | 2018-09-26 16:15 | NUR ---
PATIENT HAS DONE WELL TODAY, WORKING WITH PHYSICAL THERAPY, UP TO CHAIR AND COMMODE. PATIENT MAY HAVE P.O. PAIN MEDICATIONS NEEDED. PLAN FOR PATIENT TO GO HOME WITH DAUGHTER ONCE BI-PAP ARRIVES. PER FAMILY, BI-PAP SHOULD ARRIVE 09/27/18.
--- NOTE | 2018-09-26 17:35 | NUR ---
PATIENT UP TO CHAIR FOR DINNER, TOLERATED ACTIVITY WELL.
--- NOTE | 2018-09-26 19:45 | NUR ---
UP IN CHAIR, CALL LIGHT AND FLUIDS AT HANDS REACH.O2 1L NC/ NO C/O RESP DISTRES. VISITING WITH FAMILY
--- NOTE | 2018-09-26 21:45 | NUR ---
back to bed from chair, tolerated well. skin under skin folds cleansed and , cream and powder nystatin applied. O2 1L NC in place
--- NOTE | 2018-09-26 23:31 | NUR ---
CURRENTLY RESTING, O2 1L NC, EYES CLOSED, NO RESP DISTRESS, CALL LIGHT AND FLUIDS AT BEDSIDE
--- NOTE | 2018-09-27 02:01 | NUR ---
medicated with 5mg po Oxycontin.02/25 abd pain. Up to brm voided QS urine back to bed O2 1L nc, nc/
--- NOTE | 2018-09-27 04:35 | NUR ---
PT UP TO BR WITH ONE ASSIT, VOIDING LIGHT OSWALDO COLORED URINE. O2 1L NC, JAUNDICED SKIN, C/O CONSTANT ITCHING, LOTION APPLIED TO ALL OVER THE BODY FOR RELIEF. BRUING OVER SEVERAL SPOTS IN BODY FROM SCRATCHING HEALING, DRY. ABD LAP INCISION W SS OVER UMBILICAL AREA, DRY. WAS MEDICATED WTIH OXYCODONE 5MG PO C/O AB DPAIN, WITH GOOD PAIN RELIEF. RECEIVED 1X NEB PRN PLUS SCHEDULED. PER C/O SOB, EFFECTIVE. PT UP IN CHAIR AT TIMES DURING THIS SHIFT. CALL LIGHT AT BEDSIDE. R IJ LINE INTACT
--- NOTE | 2018-09-27 07:26 | NUR ---
CALL TO DR. EDWARDS REGARDING MG 1.1
--- NOTE | 2018-09-27 07:42 | NUR ---
PATIENT UP TO BEDSIDE COMMODE WITH ONE PERSON ASSIST. MORNING ASSESSMENT DONE. PATIENT ENDORSES FEELING ANXIOUS, EX WHEEZE NOTED ON ASSESSMENT, BASELINE 1L NC O2 IS ON. PATIENT REPORTS 8/10 ABD PAIN, PLAN TO GIVE PO PAIN MEDICATION THIS MORNING. PATIENT UP TO CHAIR FOR BREAKFAST, BED LINENS CHANGED.
--- NOTE | 2018-09-27 09:00 | NUR ---
SPOKE AT LENGTH WITH PATIENT REGARDING DISCHARGE PLAN. PATIENTS FIRST CHOICE IS TO GO HOME WITH FAMILY. SHE STATES HER DAUGHTER IS TAKING OFF WORK TO HELP HER. SHE WANTS TO GO TO [place] EVENTUALLY WHERE HER OTHER DAUGHTER LIVES AND SEE [facility] FOR OPTIONS. WE DISCUSSED FOLLOW UP AT HOME AND WHAT SHE FEELS SHE NEEDS TO BE SAFE. SHE STATES SHE HAS A WALKER AT HOME, I SUGGESTED HER FAMILY BRING IT IN TO MAKE SURE BY PHYSICAL THERAPY THAT IT IS SIZED RIGHT. SHE STATES SHE HAS OTHER FURNITURE. SHE STATES THE BATHTUB IS TALL AND THAT WILL BE A PROBLEM. SHE ALSO IS WONDERING ABOUT A LIFT CHAIR. WE DISCUSSED POSSIBLE HOME HEALTH WITH RN, PT, OT AND BATH AIDE. WE DISCUSSED CHW FOLLOW UP FOR RESOURCES. WE DISCUSSED POSSIBLE FOLLOW UP OF RT SERVICES AT HOME IF SHE NEEDS BIPAP. SHE IS IN AGREEMENT WITH ALL. DISCUSSED POSSIBLE HOME HEALTH AGENCIES IN THE AREA, SHE STATES SHE IS GOOD WITH USING [facility] FROM [place]. WE DISCUSSED THAT THEY MIGHT NOT BE ABLE TO GET TO HER FOR A DAY OR TWO AFTER SHE LEAVES HERE AND THAT SHE SHOULD HAVE FAMILY STAY WITH HER IN THE MEANTIME. WE DISCUSSED THAT SHE WILL HAVE FOLLOW UP WITH HER PCP DR SARAH. SHE STATES SHE HAS TRANSPORTATION FOR THAT. SHE CALLED HER DAUGHTER SEPTEMBER TO SEE IF SHE CAN COME UP AND MEET WITH CASE MANAGEMENT AND SHE IS GOING TO COME UP SOON. WILL RETURN TO DISCUSS WITH FAMILY. QUESTIONS ANSWERED OF PATIENT AT THIS TIME. STAFF UPDATED.
--- NOTE | 2018-09-27 10:45 | NUR ---
PATIENT UP TO AMBULATE WITH PHYSICAL THERAPY. PATIENT WALKED DOWN TO NURSING STATION.
--- NOTE | 2018-09-27 11:28 | NUR ---
Patient has been pleasant and cooperative with staff. Discharge was thought to be possible today until labs came this morning that showed low sodium and magnesium. Normal saline and magnesium piggyback was started. The patient had an anxiety attack in the night and said "I felt like I couldn't breathe." She appears to be feeling better during the day, denying feeling of anxiety during the day. A bipap machine is still be delieverd to the home for use after discharge.
--- NOTE | 2018-09-27 11:30 | NUR ---
CARE CONFERENCE SPOKE WITH PATIENT, DAUGHTER ALPHONSO AND SON ANIRUDH. DISCUSSED PATIENTS DISCHARGE OPTIONS. WE DISCUSSED THAT PATIENT IS CLOSE TO BEING DISCHARGED ABLE TO DO HOME HEALTH PT, OT. DISCUSSED THAT TESTS ARE BEING DONE TO SEE IF SHE NEEDS OR QUALIFIES FOR BIPAP AND WILL BE SENT TO HER INSURANCE IF NEEDED. SHE STATES SHE GETS HER OXYGEN SET UP THROUGH [facility]. DISCUSSED HER WISHES. SHE WISHES TO GO HOME WITH DAUGHTER AND THEN FOLLOW UP WITH PCP AND SHE IS HOPING TO GO TO [facility] IN [place] WHEN SHE IS ABLE. DISCUSSED WITH HER ADULT CHILDREN SHE WILL NEED SOMEONE THERE, ESPECIALLY IN THE BEGINNING SHE WILL NEED HELP AND IS A FALL RISK. THEY ARE WILLING TO BE THERE AND TAKE CARE OF HER. THEY ALL AGREE THAT HOME HEALTH AND CHW FOLLOW UP WILL HELP THEM FIND RESOURCES AND HELP PATIENT CONTINUE TO IMPROVE. WE DISCUSSED THAT THEY SHOULD UNDERSTAND HER DIAGNOSIS, FOLLOW UP PLAN, MEDICATIONS AND SIDE EFFECTS AT DISCHARGE. ENCOURAGED FAMILY TO SIT IN WHEN DISCHARGE INSTRUCTIONS ARE GIVEN BY STAFF. DISCUSSED THAT PATIENT IS WANTING TO ARRANGE HOME HEALTH THROUGH [facility] AND FAMILY STATES THEY ARE GOOD WITH THIS. DISCUSSED POSSIBLE BIPAP AND THAT IF THIS HAPPENS THEY WILL ALSO HAVE HELP WITH THIS MACHINE THROUGH DME AND POSSIBLE HOME PULMONARY PROGRAM. DISCUSSED THAT THEY ARE WORKING ON HOME TO GET IT READY FOR HER. THEY ARE MOVING HER THINGS INTO A BEDROOM A LITTLE BIGGER. WE DISCUSSED A BSC MIGHT BE HELPFUL, GAVE INFORMATION ON WHERE THIS CAN BE BOUGHT OR BORROWED. DISCUSSED THAT IF PATIENT NEEDS WHEELCHAIR THEY NEED TO SEE ABOUT WIDTH OF DOORS IN HOME AND CAN ALSO BORROW THIS OR GET ONE THROUGH DME IF NEEDED. DISCUSSED THAT LIFT CHAIR WILL NEED TO BE ARRANGED THROUGH PCP. DISCUSSED SHE WILL NEED TO FOLLOW UP AT PCP OFFICE WITHIN 7-10 DAYS. DISCUSSED THAT CHW WILL BE ARRANGING TO SEE HER AT HOME WITH A FEW DAYS AND WILL HELP WITH RESOURCES THROUGH THE COMMUNITY. QUESTIONS WERE ANSWERED. THEY ARE IN AGREEMENT WITH ALL PLANS. PATIENT STATES SHE FEELS VERY GOOD WITH THIS PLAN. STAFF UPDATED.
--- NOTE | 2018-09-27 12:19 | NUR ---
MADE SEVERAL ATTEMPTS TO VISIT PT, STAFF HAVE KEPT HER BUSY TODAY. GAVE RN TYLER VALENZUELA TO GIVE TO PT. WILL FOLLOW UP NEEDED
--- NOTE | 2018-09-27 12:47 | NUR ---
PATIENT UP TO CHAIR FOR LUNCH, DENIES OTHER NEEDS AT THIS TIME.
--- NOTE | 2018-09-27 15:30 | NUR ---
SPOKE WITH AMBER FROM [facility] REGARDING POSSIBLE NEED FOR BIPAP AT DISCHARGE. SHE STATES THAT A PREAUTHORIZATION WILL BE NEEDED 24HOURS PRIOR TO DISCHARGE. EXPLAINED PATIENT WILL LIKELY BE DISCHARGED SUNDAY. SHE STATES TO CALL [phone] SUNDAY WITH CPT CODES AND ASK FOR A MOON AUTHORIZATION. DR EDWARDS UPDATED.
--- NOTE | 2018-09-27 15:53 | NUR ---
PATIENT IN BED AND SLEEPING.
--- NOTE | 2018-09-27 17:01 | NUR ---
PATIENT HAS DONE WELL WITH ACTIVITY TODAY, UP IN HALLWAY TO AMBULATE. PATIENT TAKES PO PAIN MEDICATIONS TWICE DURING DAY SHIFT. MAGNESIUM REPLACED FOR 1.1 LEVEL THIS MORNING. PLAN IS FOR PATIENT TO DISCHARGE HOME ON SUNDAY.
--- NOTE | 2018-09-27 19:25 | NUR ---
RECIEVED BEDSIDE REPORT FROM SHANDA WEISS. PATIENT LAYING AWAKE IN BED WATCHING TV. WHITE BOARD UPDATED. FRESH WATER PROVIDE TO PATIENT PER PATIENT REQUEST. CALL LIGHT WITHIN REACH. NO MORE NEEDS AT THIS TIME.
--- NOTE | 2018-09-27 21:31 | NUR ---
CHARGE NURSE ROUNDING NOTE: UP IN CHAIR, O2 1L NC. VISITING. CALL LIGHT AND FLUIDS AT BEDSIDE
--- NOTE | 2018-09-27 21:50 | NUR ---
CHARGE NURSE FRANK ADMINISTRED MEDICATIONS PER AUG ORDER.
--- NOTE | 2018-09-27 22:30 | NUR ---
ASSESSMENT COMPLETE, REFER TO ASSESSMENT. PATIENT REPORTS "8/10" PAIN IN ABD AND RIGHT SHOULDER, PRN PAIN MEDICATIONS ADMINISTERED PER MAR ORDER. PATIENT DENIES SOB, DIFFICULTY BREATHING OR CHEST PAIN. PATIENT DENIES NUMBNESS AND TINGING IN EXTREMITIES. CHARGE NURSE FRANK, REPORTED GOOD BLOOD RETURN IN CENTRAL LINE AND HEP LOCKED AT THIS TIME. SCDS IN PLACE, AND PROVIDED EDUCATION TO PATIENT ABOUT THEIR USE. 1L VIA NC, NO SIGNS OF DISTRESS. CALL LIGHT WITHIN REACH. NO MORE NEEDS AT THIS TIME.
--- NOTE | 2018-09-27 23:03 | NUR ---
ROUNDED ON PATIENT RESTING IN BED WITH EYES CLOSED, RESPIRATORY RATE IS EVEN AND UNLABORED, PATIENT EASILY AWOKE WHEN THIS RN ENTERED ROOM. PRN PAIN MEDICATION ADMINISTERED PER AUG ORDER FOR PATIENT'S REPORTED "8/10" PAIN IN ABD AND RIGHT SHOULDER. NOTIFIED RESPIRATORY THERAPIST THAT PATIENT WOULD LIKE BIPAP IN PLACE. CALL LIGHT WITHIN REACH. NO MORE NEEDS AT THIS TIME.
--- NOTE | 2018-09-28 01:10 | NUR ---
ROUNDED ON PATIENT RESTING IN BED WITH EYES CLOSED, RESPIRATORY RATE IS EVEN AND UNLABORED. BIPAP IN PLACE. NO SIGNS OF TENSING OR GRIMACING. CALL LIGHT WIHTIN REACH.
--- NOTE | 2018-09-28 02:25 | NUR ---
ASSESSMENT COMPLETE, REFER TO ASSESSMENT. PATIENT REPORTS "8/10" PAIN IN BLE, PATIENT DENIES WANTING PRN PAIN MEDICATION AT THIS TIME. PATIENT REPORTS ITCHING ON BACK AND ARMS, PT REQUESTED THAT LOTION BE APPLIED, ENCOURAGED PATIENT TO APPLY LOTION TO PATIENT'S OWN ARMS AND THIS RN APPLIED LOTION TO BACK. PATIENT STARTED TO BLEED SLIGHTLY DUE TO PATIENT SCRATCHING BACK, BANDAID APPLIED. PATIENT OFF BIPAP AT THIS TIME AND ON 1 L VIA NC, NO SIGNS OF DISTRESS. PATIENT DENIES HAVING CHEST PAIN, SOB OR DIFFICULTY BREATHING. 1PA PATIENT TO BSC WITH FWW, CALL LIGHT WITHIN REACH. NO MORE NEEDS AT THIS TIME.
--- NOTE | 2018-09-28 02:38 | NUR ---
UP TO BSC, VOIDED OSWALDO COLORED URINE, BACK TO CHAIR, O2 1L NC. TOLERATED FAIT. 1PA AND FWW. LOTION APPLIED TO BOTH FEET AND CALVES ON HER REQUESTS TO DECREASE ITCHING. CALL LIGHT AND FLUIDS AT HANDS REACH
--- NOTE | 2018-09-28 03:23 | NUR ---
NOTIFIED DR. EDWARDS OF PATIENT'S URINE OUTPUT. NO NEW ORDERS.
--- NOTE | 2018-09-28 04:42 | NUR ---
ROUNDED ON PATIENT RESTING IN CHAIR WITH EYES CLOSED, RESPIRATORY RATE IS EVEN AND UNLABORED. CALL LIGHT WITHIN REACH. NO SIGNS OF DISTRESS.
--- NOTE | 2018-09-28 05:10 | NUR ---
CALL LIGHT ON. pt REQUESTED TO GO BACK TO BED. 1PA FWW. VSS. I&O RECORDED. WARM BLANKET PROVIDED. CALL LIGHT WITHIN REACH.
--- NOTE | 2018-09-28 05:52 | NUR ---
PATIENT SLEPT ON AND OFF THROUGHOUT THE NIGHT. CENTRAL LINE, HEP LOCKED. SCDS. 1L VIA NC. PATIENT REPORTS ITCHING, LOTION APPLIED. PRN PAIN MEDICATION ADMINISTERED X1. BIPAP AT NIGHT. UP IN CHAIR. 1PA WITH FWW. BSC. SCHEDULED NYSTATIN POWDER APPLIED.
--- NOTE | 2018-09-28 06:55 | NUR ---
MEDICATION ADMINISTRATION COMPLETE PER AUG ORDER BY JONI WEISS.
--- NOTE | 2018-09-28 07:05 | NUR ---
BEDSIDE HANDOFF REPORT RECEIVED FROM HARVEST CONTRACTOR RN. PT ASSISTED FROM BSC TO CHAIR. PT DENIES OTHER NEEDS AT THIS TIME.
--- NOTE | 2018-09-28 09:25 | NUR ---
PT ASSISTED BACK TO BED. PT ON 1L NC, LUNG SOUNDS CLEAR WITH DIM BASES, DENIES SOB. PT DENIES PAIN. PT BOWEL TONES ACTIVE DENIES NAUSEA, HAS NOT HAD BM IN 2 DAYS. PT SKIN JUANDICED WITH SCATTERED SCRATCHES. PT WITH EDEMA TO BLE 2+, PULSES PALPABLE, CMS INTACT. CENTRAL LINE FLUSHED, BRISK BLOOD RETURN, HEP LOCKED, DISCUSSED PLAN FOR DRESSING CHANGE AFTER SHOWER. PT DENIES OTHER NEEDS AT THIS TIME. DISCUSSED PLAN OF CARE FOR THE DAY.
--- NOTE | 2018-09-28 12:44 | NUR ---
RIGHT IJ CENTRAL LINE D/C. TIP OF CATHETER INTACT, PATIENT TOLERATED PROCEDURE WELL. GUAZE + ANTIBIOTIC OINTMENT APPLIED AND IS COVERED WITH A FOAM TAPE SEAL. PATIENT LYING FLAT FOR 15 MINUTES. SOME BLEEDING NOTED, PRESSURE APPLIED, NO BLEEDING NOTED, NEW DRESSING APPLIED.
--- NOTE | 2018-09-28 14:15 | NUR ---
PT RESTING IN BED. BLOOD PRESSURE REASSESSED FOR HYPOTENSION, WNL. PT APPEARS MORE LETHARGIC THIS AFTERNOON, HAVING DIFFICULTY KEEPING EYES OPEN AND FOCUSING. PT STATES SHE FEELS TIRED. PT ALLOWED TO REST, PLAN FOR LUNCH AND THEN SHOWER IN 30 MINUTES.
--- NOTE | 2018-09-28 16:37 | NUR ---
PT ON 1L NC, LUNG SOUNDS CLEAR/DIMINISHED. PT MORE TIRED THIS AFTERNOON, ALERT/ORIENTED. SBA TO AMBULATE. IJ REMOVED PER ORDER. BOWEL TONES ACTIVE, HAD 1BM TODAY. PT WITH PURITIS, NEW ORDER FOR VISTARIL, DISCUSSED WITH PT TO HAVE VISTARIL AT BEDTIME DUE TO DROWSINESS. PLAN FOR DISCHARGE ON SUNDAY.
--- NOTE | 2018-09-28 18:16 | NUR ---
PT ASSISTED TO BED. PT AGAIN FEELING TIRED, HAVING DIFFUCULTY KEEPING EYES OPEN AND FOCUSING. PT PLACED ON BIPAP. MD NOTIFIED OF CHANGE IN STATUS, ORDER TO NOTIFY IF MENTAL STATUS CONTINUES TO DECLINE FOR POSSIBLE INCREASED LACTULOSE DOSE.
--- NOTE | 2018-09-28 19:30 | NUR ---
RECIEVED BEDSIDE REPORT FROM MARY WEISS. PATIENT LAYING IN BED, DROWSY AND CLOSING EYES WHILE THIS RN AND MARY RN INTERACTED WITH PATIENT. NOTIFIED DR. EDWARDS OF PATIENT STATUS, NEW ORDERS RECIEVED, VERIFIED VERBAL ORDER THROUGH READ BACK METHOD. VISITOR AT BEDSIDE. CALL LIGHT WITHIN REACH. NO MORE NEEDS AT THIS TIME.
--- NOTE | 2018-09-28 20:30 | NUR ---
ASSESSMENT COMPLETE, REFER TO ASSESSMENT. PATIENT REPORTS "8/10" PAIN IN ABD AND RIGHT ARM, PRN PAIN MEDICATION ADMINISTRED PER AUG ORDER. SCHEDULED MEDICATIONS ADMINISTERED PER AUG ORDER. SCHEDULED NYSTATIN APPLIED UNDER PANNIS AND UNDER BREASTS, VERY LITTLE REDNESS NOTED. 1L VIA NC, NO SIGNS OF DISTRESS. PATIENT DENIES CHEST PAIN, SOB, OR DIFFICULTY BREATHING. REPOSTITIONED PATIENT IN BED. PATIENT ALERT WITH VISITORS AT BEDSIDE. CALL LIGHT WITHIN REACH. SCDS IN PLACE. NO MORE NEEDS AT THIS TIME.
--- NOTE | 2018-09-28 21:18 | NUR ---
ROUNDED CHARGE. PATIENTS BLOOD PRESSURE TAKEN AND RECORDED. PATIENT ALSO HAS COMPLAINTS OF ITCHING. PRN ITCHING MEDICATION GIVEN PER ORDER AND REQUEST. PATIENT DENIES ANY COMMENTS OR CONCERNS. ALL QUESTIONS ANSWERED. NO FURTHER NEEDS NOTED. CALL LIGHT IN REACH.
--- NOTE | 2018-09-28 22:45 | NUR ---
ROUNDED ON PATIENT RESTING IN BED WITH EYES CLOSED, RESPIRATORY RATE IS EVEN AND UNLABORED. RESPIRATORY THERAPIST IN ROOM TO PLACE BIPAP ON PATIENT. PATIENT DENIES HAVING PAIN. PATIENT DROWSY, BUT ANSWERS QUESTIONS APPROPRIATELY. CALL LIGHT WITHIN REACH. NO MORE NEEDS AT THIS TIME.
--- NOTE | 2018-09-28 23:35 | NUR ---
ROUNDED ON PATIENT TO ASSIST PATIENT TO BSC. PATIENT REPORTS FEELING "ITCHY", LOTION APPLIED. PATIENT REQUESTED TO HAVE A BREAK FROM SCDs AND BIPAP MACHINE. PATIENT SAFELY BACK INTO BED. CALL LIGHT WITHIN REACH. NO MORE NEEDS AT THIS TIME.
--- NOTE | 2018-09-29 00:25 | NUR ---
ROUNDED ON PATIENT DUE TO PATIENT USING CALL LIGHT TO REQUEST A BREATHING TREATMENT. FRANK RN NOTIFED RESPIRATORY THERAPIST THAT PATIENT WOULD LIKE BREATHING TREATMENT. FOCUSED RESPIRATORY ASSESSMENT COMPLETE. PATIENT ABLE TO TALK IN CLEAR AND CONCISE SENTENCES, BUT APPEARS TO HAVE SOME SLIGHT SOB. RESPIRATORY THERAPIST IN ROOM DURING TIME OF ASSESSMENT. CALL LIGHT WITHIN REACH. NO MORE NEEDS AT THIS TIME.
--- NOTE | 2018-09-29 01:08 | NUR ---
MEDICAL RESEARCH ASSOCIATE 2 Sinbreana and myself repositioned pt in bed. She needed nothing further at this time. Call light and BST in place.
--- NOTE | 2018-09-29 02:43 | NUR ---
ASSESSMENT COMPLETE, REFER TO ASSESSMENT. PATIENT RESTING IN BED WITH EYES CLOSED, RESPIRATORY RATE IS EVEN AND UNLABORED. BIPAP PLACED ON PATIENT BY RESPIRATORY THERAPIST. NO SIGNS OF DISTRESS. SCDs IN PLACE. PATIENT DROWSY/SLEEPY DURING ASSESSMENT, PT AWOKE TO QUESTIONS ASKED BY THIS RN. PATIENT DENIES SOB, DIFFICULTY BREATHING OR CHEST PAIN. CALL LIGHT WITHIN REACH. NO MORE NEEDS AT THIS TIME.
--- NOTE | 2018-09-29 02:50 | NUR ---
NOTIFED DR. EDWARDS OF PATIENT'S URINE OUTPUT. NO NEW ORDERS.
--- NOTE | 2018-09-29 04:21 | NUR ---
ROUNDED ON PATIENT RESTING IN BED WITH EYES CLOSED, RESPIRATORY RATE IS EVEN AND UNLABORED. BIPAP IN PLACE. CALL LIGHT WITHIN REACH.
--- NOTE | 2018-09-29 04:47 | NUR ---
PATIENT SLEPT ON AND OFF THROUGHOUT THE NIGHT. BIPAP AT NIGHT. 1L VIA NC. SCHEDULED NEB TREATMENTS. PRN NEB TREATMENT X1 THIS SHIFT. SCHEDULED NYSTATIN POWDER/CREAM APPLIED UNDERNEATH PANNIS AND BREASTS. PRN PAIN MEDICATION X1. PRN MEDICATION FOR ITCHING X1. LOTION APPLIED WELL FOR ITCHING. SCDs. SCHEDULED X1 DOSE OF ENULOSE AT BEGINNING OF SHIFT. PATIENT ALERT WHEN VISITORS IN ROOM AT BEGINNING OF SHIFT, BUT DROWSY ON AND OFF FOR THE REST OF SHIFT. 1PA WITH FWW TO BSC. USES CALL LIGHT APPROPRIATELY.
--- NOTE | 2018-09-29 05:35 | NUR ---
ROUNDED ON PATIENT TO ANSWER PATIENT CALL LIGHT. PATIENT APPEARED SLIGHTLY DISORIENTED AND DROWSY WITH FAMILY AT BEDSIDE. THIS RN ASSISTED PATIENT TO BSC. PATIENT SAFELY BACK INTO BED WITH ASSISTANCE FROM THIS RN AND CHARGE NURSE BEULAH. PATIENT COMPLAINED OF ITCHING, FAMILY APPLIED LOTION AND PATIENT REQUESTED MEDICATION FOR ITCHING. PRN ITCHING MEDICATION ADMINISTERED PER MAR ORDER. PATIENT DROWSY AND WOULD MUMBLES SOME ANSWERS BACK TO THIS RN WHEN ASKED, PATIENT BECAME SLIGHTLY MORE ALERT WHEN THIS RN INTERACTED WITH PATIENT AND PATIENT STATED, "IT TAKES ME A LITTLE BIT TO WAKE UP". PATIENT ABLE TO TOLERATE MEDICATION ADMINISTRATION. PATIENT REQUESTED THAT SCDs BE REMOVED. BIPAP IN PLACE PATIENT STARTING TO FALL BACK ASLEEP. CALL LIGHT WITHIN REACH. NO MORE NEEDS AT THIS TIME.
--- NOTE | 2018-09-29 06:44 | NUR ---
NOTIFED DR. EDWARDS OF PATIENT'S URINE OUTPUT AND PATIENT'S LOC. NO NEW ORDERS.
--- NOTE | 2018-09-29 06:49 | NUR ---
NOTIFED DR. TIDWELL OF PATIENT'S URINE OUTPUT AND LOC. NO NEW ORDERS.
--- NOTE | 2018-09-29 07:05 | NUR ---
ATTEMPTED TO ADMINISTER PATIENT'S SCHEDULED MEDICATION. PATIENT UNABLE TO TAKE MEDICATION AT THIS TIME PATINET IS TOO DROWSY. RESPIRATORY THERAPIST IN ROOM AT THIS TIME PROVIDING SCHEDULED BREATHING TREATMENT. HOSPITALIST AWARE OF PATIENT STATUS.
--- NOTE | 2018-09-29 07:47 | NUR ---
REPORT RECIEVED. NIGHT NURSE ATTEMPTED TO ADMINSITER THYROID MEDICATION. PT IS OBTUNDED AND WAKES ONLY TO GENTLE SHAKING AND REPEATEDLY CALLING OF NAME. RT IN TO DO BREATHING TREATMENT AND DAUGHTER AT BEDSIDE. PT REPORTS FEELING REALLY TIRED. DR EDWARDS AWARE. PT PLACED BACK ON BIPAP. O2 SATURAITONS AND PULSE WNL. CALL LIGHT IN REACH. PT RESTING NOW.
--- NOTE | 2018-09-29 09:30 | NUR ---
2PA TO BED SHAH. TOLERATED WELL. MED BM AND x1 URINE OUTPUT.
--- NOTE | 2018-09-29 10:32 | NUR ---
PT WITH MONITOR BLOOD PRESSURE OF 71/56. MANUAL WAS 95/60. DR EDWARDS NOTIFIED, FAMILY CALLED AT THE REQUEST OF TO TALK ABOUT UPDATE PLAN OF CARE. DAUGHTER AND NEPHEW AT BEDSIDE TO TALK WITH DR EDWARDS. QUESTIONS AND CONCERNS ADRESSED.
--- NOTE | 2018-09-29 12:00 | NUR ---
LUNCH AT BEDSIDE. PT WITH EYE
--- NOTE | 2018-09-29 12:00 | NUR ---
PT WITH LUNCH AT BEDSIDE. PT LYING WITH EYES CLOSED, REPORTS NOT FEELING HUGERY. CALL LIGHT IN REACH. DENIES FURTHER NEEDS.
--- NOTE | 2018-09-29 15:00 | NUR ---
PT SAT UP TO SIDE OF BED, HAIR BRUSHED, NEPHEW APPLIED LOTION TO BACK FOR ITCHING. DENIES PAIN. CALL LIGHT IN REACH
--- NOTE | 2018-09-29 17:00 | NUR ---
PT REFUSED DINNER. FAMILY AT BEDSIDE.
--- NOTE | 2018-09-29 19:51 | NUR ---
2 FAMILY LAW SPECIALIST CHANGED DRAWSHEETS, ATTENDS AND CLEANED PATIENT HAD VOIDED AND BOWEL MOVEMENT. FAMILY IN THE ROOM. REPOSITIONED PATIENT.
--- NOTE | 2018-09-29 20:45 | NUR ---
PT SITTING EDGE OF BED, DAUGHTER DOING PTS HAIR. WILL COMPLETE ASSESSMENT WHEN PT CALLS ME BACK. NO C/O PAIN OR RESP DISTRESS NOTED AT THIS TIME. CALL LIGHT AND FLUIDS AT HANDS REACH. FAMILY IN ROOM
--- NOTE | 2018-09-29 22:04 | NUR ---
up in bed now, coop with assessment, Amedicated with Tylenol 500mg po c/o arms and abd pain. pt on room air, continues to be jaundiced. applies skin lotion. no n/v. skin between folds improving, less redness. edema LE/feet 1+ edema, non pitting, legs elevated with pillows
--- NOTE | 2018-09-29 22:29 | NUR ---
V/S AND I&O DONE AND CHARTED.
--- NOTE | 2018-09-29 23:13 | NUR ---
patient requested that she be put on the bedpan. I assisted SCREEN MACHINE OPERATOR 2 Sinta, patient will call when she is finished.
--- NOTE | 2018-09-29 23:26 | NUR ---
2 ABATTOIR SUPERVISOR HELPED PATIENT USE THE BED SHAH AND VOIDED. CLEANED AND REPOSITIONED PATIENT. FAMILY IN THE ROOM.
--- NOTE | 2018-09-29 23:59 | NUR ---
resting, eyes closed, skin jaundiced, call light at bedside. Family in room
--- NOTE | 2018-09-30 02:11 | NUR ---
RESTING, EYES CLOSED, O2 1LNC IN PLACE. SKIN CONTINUES TO BE JAUNDICED. NO DISTRESS AT THIS TIME. CALL LIGTH AND FLUIDS AT BEDSIDE. FAMILY IN ROOM
--- NOTE | 2018-09-30 04:17 | NUR ---
repositioned in bed, O2 1l NC at this time. no c/o pain. call light and fluids at bedside. Family inroom
--- NOTE | 2018-09-30 05:01 | NUR ---
UP TO BSC, VOIDED LIGHT DARK OSWALDO COLORED URINE, BACK TO BED WITH 1 ASSIST. TOLERATD FAIR, O2 1L NC IN PLACE.FAMILY IN ROOM, CALL LIGTH AT BEDSIDE
--- NOTE | 2018-09-30 05:41 | NUR ---
pt skin still jaundiced, used O2 1L nc at hs. was medicated x1 per abd pain. effective. PT up to bsc, voiding jenniffer colored urine. Pt encourged to get out of bed, tolerated well, sligth sob when getting back to bed, recuperatd very easily. abd lap incsions healed. , decreased redness, decreased edema of abd. Improved affect and stamina. using call ligth appropriately. call light and fludis at bedside
--- NOTE | 2018-09-30 07:16 | NUR ---
RECIEVED BEDSIDE REPORT FROM ISELA MARIE. PT AWAKE AND ALERT. DR TIDWELL IN ROOM. ENCOURAGE PT TO USE BSC. NO IV ACCESS.
--- NOTE | 2018-09-30 08:00 | NUR ---
SPOKE WITH PATIENT IN ROOM. PATIENT SITTING UP AT SIDE OF BED. WE DISCUSSED POSSIBLE DISCHARGE HOME PLANNED BEFORE WITH HELP OF FAMILY. PATIENT STATES SHE HAD A "BAD WEEKEND". WE DISCUSSED IF HER FAMILY IS GOING TO BE AROUND 24/7 TO MAKE SURE SHE HAS HELP. SHE STATES HER DAUGHTER FROM [place] IS COMING AND WILL BE HERE TOMORROW. SHE IS HOPING TO MAKE A DECISION THEN ON FINAL DISCHARGE PLAN. I DISCUSSED MEDICAL NECESSITY AND THAT WE WILL NEED TO MAKE A DISCHARGE IF SHE NO LONGER HAS A MEDICAL NEED TO BE INPATIENT. SHE STATES UNDERSTANDING. WE DISCUSSED OPTIONS AGAIN; SUCH SNF STAY, HOME WITH HOME HEALTH, HOME WITH HOSPICE. WE DISCUSSED POSSIBLE HIRING IN-HOME HELP AND APPLYING FOR STATE HELP. AGAIN PATIENT WANTS TO LOOK AT HER OPTIONS AND TALK WITH FAMILY, INCLUDING HER DAUGHTER COMING TOMORROW. BROCHURE FOR HELPING HANDS IN-HOME CARE GIVEN. WILL CONTINUE TO FOLLOW.
--- NOTE | 2018-09-30 08:10 | NUR ---
PATIENT WAS AWAKE .WARM WASH CLOTH WAS GIVEN, FRESH WATER, PATIENT WAS UP TO BS COMODE, WITH WALKER, PATIENT WENT TO HER CHAIR WITH 1P STBA. PATIENT BED WAS CHANGED. PATIENT BREAKFAST ARRIVED , FAMILY IN ROOM WITH PATIENT.NO OTHER NEED AT THIS TIME CALL LIGHT IN REACH.
--- NOTE | 2018-09-30 13:09 | NUR ---
FAMILY AT BEDSIDE, DISCUSSING IN HOME ASSISTANCE FOR POST DISCHARGE. FAMILY BROUGHT IN HOME CPAP. WILL ADVISE RT. PT IS VERY JAUNDICED, AWAKE AND ALERT.
--- NOTE | 2018-09-30 17:42 | NUR ---
PT HAD FAMILY IN ROOM MOST OF DAY. PT'S DAUGHTER BROUGHT IN HOME BIPAP/CPAP MACHINE. RT HAS ASSESSED. PT WILL MAKE A DISCHARGE PLAN TOMORROW ONCE ANOTHER DAUGHTER GETS HERE FROM [place]. PT UP TO BEDSIDE COMMODE SEVERAL TIMES. UP TO CHAIR FOR MEALS. PT REMAINS VERY JAUNDICED. TOLERATES REG DIET, SMALL PORTIONS. UP TO SHOWER WITH SUPERVISOR HEAT TREATING.
--- NOTE | 2018-09-30 19:06 | NUR ---
RECIEVED BEDSIDE REPORT FROM ISELA SCOTT. PATIENT LAYING AWAKE IN BED. THIS RN AND ISELA SCOTT ASSISTED PATIENT OFF BEDSIDE COMMODE. NEW CHUCKS PLACED ON BED. 2L VIA NC. CALL LIGHT WITHIN REACH. NO MORE NEEDS AT THIS TIME.
--- NOTE | 2018-09-30 21:45 | NUR ---
ASSESSMENT COMPLETE, REFER TO ASSESSMENT. PATIENT DENIES HAVING PAIN, SHORTNESS OF BREATH OR DIFFICULTY BREATHING. PATIENT DENIES ABD TENDERNESS. SCHEDULED MEDICATIONS ADMINISTERED PER AUG ORDER. SCHEDULED NYSTATIN POWDER APPLIED PER AUG ORDER TO PANNIS AND UNDER BREAST TISSUE. EDEMA NOTED IN BLE, SCDs IN PLACE AND BLE ELEVATED ON PILLOW. 2L VIA NC, NO SIGNS OF DISTRESS. OPSITES ON ABD ARE CDI, NO NEW DRAINAGE NOTED. VISITORS AT BEDSIDE. CALL LIGHT WITHIN REACH. NO MORE NEEDS AT THIS TIME.
--- NOTE | 2018-09-30 23:46 | NUR ---
ROUNDED ON PATIENT TO ANSWER PATIENT CALL LIGHT. MARLON REPORTS "8/10" PAIN IN RIGHT SHOULDER, PRN PAIN MEDICATION ADMINISTERED PER AUG ORDER. CNAs IN ROOM TO ASSIST PATIENT WITH BEING ON BEDPAN. NOTIFED RESPIRATORY THERAPIST THAT PATIENT WOULD LIKE TO BE ON BIPAP MACHINE. CALL LIGHT WITHIN REACH. NO MORE NEEDS AT THIS TIME.
--- NOTE | 2018-10-01 00:15 | NUR ---
2 HAND SIGN WRITER HELPED PATIENT USE THE BED SHAH. PATIENT VOIDED. PATIENT REPOSITIONED. CALL LIGHT WITHIN REACH.
--- NOTE | 2018-10-01 02:37 | NUR ---
ROUNDED ON PATIENT RESTING IN BED WITH EYES CLOSED, RESPIRATORY RATE IS EVEN AND UNLABORED. PATIENT ON BIPAP MACHINE. CALL LIGHT WITHIN REACH. NO MORE NEEDS AT THIS TIME.
--- NOTE | 2018-10-01 03:20 | NUR ---
ASSESSMENT COMPLETE, REFER TO ASSESSMENT. ANSWERED PATIENT'S CALL LIGHT WITH PATIENT APPEARING TO BE ANXIOUS AND REQUESTING A BREATHING TREATMENT. PATIENT REQUESTING THAT BIPAP MACHINE BE REMOVED, PATIENT REQUESTING TO HAVE A BREAK FROM DEVICE. 2L VIA NC APPLIED. THIS RN NOTIFED RESPIRATORY THERAPIST THAT PATIENT WOULD LIKE A BREATHING TREATMENT. LUNG SOUNDS ASSESSED, REFER TO ASSESSMENT. ELVATED HEAD OF BED PER PATIENT REQUEST. PATIENT DENIES HAVING CHEST PAIN OR PAIN. CALL LIGHT WITHIN REACH. NO MORE NEEDS AT THIS TIME.
--- NOTE | 2018-10-01 04:41 | NUR ---
V/S AND I&O TAKEN AND RECORDED. 2 WEAPONS AND TACTICS INSTRUCTOR HELPED USE THE BEDSIDE COMMODE AND BACK TO BED. SIDE TABLE WITHIN REACH. PATIENT IS IN SIT UP POSITION USING HER PERSONAL COMPUTER. SCD ON.
--- NOTE | 2018-10-01 06:00 | NUR ---
ROUNDED ON PATIENT REPORTING "9/10" PAIN IN ABD AND SHOULDER, PRN PAIN MEDICTION ADMINISTERED PER AUG ORDER. PATIENT REPORTS NAUSEA WITH DRY HEAVING, PRN NAUSEA MEDICATION ADMINISTERED. SCHEDULED MEDICATION ADMINISTERED PER AUG ORDER. EMESIS BAG PROVIDED TO PATIENT. PATIENT DENIES ANY MORE NEEDS AT THIS TIME. CALL LIGHT WITHIN REACH.
--- NOTE | 2018-10-01 07:01 | NUR ---
NOTIFIED DR. MILLER OF PATIENT'S LOW URINE OUTPUT, NO NEW ORDERS.
--- NOTE | 2018-10-01 07:10 | NUR ---
BEDSIDE HANDOFF REPORT RECEIVED FROM STRADDLE BUG OPERATOR RN. PT RESTING IN BED. PT DENIES NEEDS AT THIS TIME.
--- NOTE | 2018-10-01 08:30 | NUR ---
PT SITTING IN CHAIR, PT REQUESTING TO RETURN TO BED. PT ON 2L NC, LUNG SOUNDS CLEAR WITH DIMINIHSED BASES, RECEIVING SCHEDULED NEBS. PT WITH COMPLAINT OF ABD AND BACK PAIN. PT WIHT SMALL APPETITE, DENIES NAUSEA, BOWEL TONES ACTIVE. 1+ EDEMA IN BLE, CONCENTRATED AROUND ANKLES AND FEET, CMS INTACT, PULSES PALPABLE. PT WITHOUT IV ACCESS. PT SKIN JUANDICED, SCATTERED SCRATCHES, NYSTATIN CREAM AND POWDER APPLIED TO SKIN FOLDS. SCDS IN PLACE. PT DENIES OTHER NEEDS AT THIS TIME.
--- NOTE | 2018-10-01 08:51 | NUR ---
Patient was awake this morning, patient up to the bedside comaode, than to her chair for [facility]. transfer to and from chair to bed 1 person assist. with 4ww. fresh water was given, call light in reach, patient was transfered back to bed by Nurse.
[2018-10-01] MEDS ORDERED: ATENOLOL25 MG PO (09:41)
[2018-10-01] MEDS ORDERED: LACTULOSE20 GM/30 M PO (09:41)
[2018-10-01] MEDS ORDERED: BUDESONIDE0.5 MG/2 M INH (09:41)
[2018-10-01] MEDS ORDERED: IPRAT-ALBUT 0.5-3 ML INH (09:41)
--- NOTE | 2018-10-01 10:15 | NUR ---
TAlKED WITH PTS DAUGHTER SEPTEMBER AND PT'S NIECE ALBERT FROM [place] ABOUT PT DC PLANS, ALPHONSO INFORMED ME THAT HER SISTER SALIMA GETTING HERE AT MIDNIGHT TONIGHT INTO [place] AND SHE WON'T GET HERE UNTIL 2 AM, SO THEY DON'T WANT TO MAKE ANY DECISIONS UNTIL AFTER SHE HAS BEEN ABLE TO BE HERE AND TALK TO HER MOTHER. MEANWHILE ALBERT IS ASKING ABOUT HOW TO GET A HOSPITAL BED AND EQUIPMENT, SO THEY WANTED HOSPICE TO START SO THEY COULD GET HER HOME. I THEN WENT ON TO EXPLAIN TO HER THAT IF HOSPICE IS STARTED THE PT CAN'T BE ACTIVELY SEEKING REFERRALS TO AN ONCOLOGIST OR VISITS TO THE HOSPITALS. SHE WILL STILL BE ABLE TO HAVE APPT WITH HER PCP. THEN ALBERT SAYS BUT SHE HAS TO HAVE THE EQUIPMENT AND WE CAN'T TAKE HER HOME UNTIL SHE HAS THE EQUIPMENT, BUT THE GIRLS NEED TO KNOW THAT THEY HAVE DONE ALL THEY NEED TO DO FOR THERE MOTHER EVEN IF THERE IS NOTHING MORE THAT CAN BE DONE, THEY HAVEN'T TALKED TO THE ONCOLOGIST AND THEY NEED TO AT LEAST FEEL THAT THEY HAVE DONE THAT. AGAIN THEY DECIDED THEY WERE GOING TO PUT ALL ON HOLD TIL TOMORROW AND WE WOULD MEET AGAIN AT [address] HI NUMBER [phone]. AFTER THIS WHILE ALPHONSO AND ALBERT WERE GONE I WENT AND TALKED WITH THE PT. I ASKED HER WHAT SHE WANTS, SHE STATES WE CAN DISCUSS THAT WHEN SALIMA GETS HERE. WE DID TALK ABOUT HER GOING TO [place] AND SHE STATES YEAH THAT WOULD BE NICE BUT I DON'T THINK IT IS REALLY IS GOING TO MATTER, I DON'T KNOW IF IT WILL MAKE A DIFFERENCE, PT STATES SHE IS READY TO GO HOME TOMORROW AND GET ON WITH HER LIFE, WANTS TO VISIT WITH HER DAUGHTER AND FAMILY. SHE ALSO INQUIRED INTO GETTING "THAT MEDICAID THING" I EXPLAINED SOME OF IT AND SHE STATES WELL THAT HELPING HAND IS REALLY EXPENSIVE, I MIGHT BE ABLE TO USE THEM FOR A COUPLE OF HOURS ONCE IN A WHILE, SO I NEED TO THINK ABOUT THIS. THEN WENT ON TO ASK ABOUT HOW MUCH MONEY ONE CAN MAKE AND HOW MUCH DO THEY TAKE FROM YOU AND WHAT KIND OF THINGS DO THEY TAKE FROM YOU. SHE STATES "MY CAR IS PAID OFF IN 2 MONTHS AND I THEN WILL GET THE TITLE AND HAVE IT MADE TO [employer]." I TOLD HER I WOULDN'T HURT TO GET THE APPLICATION AND START FILLING IT OUT BECAUSE IT IS A PROCESS THAT COULD TAKE SEVERAL WEEKS TO BE APPROVED. SHE SAID SHE WOULD SEND ONE OF THE KIDS TO FISH BAIT PROCESSING SUPERVISOR AN APPLICATION. TOLD HER WE WOULD TALK AGAIN TOMORROW.
--- NOTE | 2018-10-01 10:17 | NUR ---
LR BOLUS ORDERED, NO IV ACCESS. DISCUSSED WITH DR. MILLER, VERBAL ORDER TO NOT GIVE LR BOLUS.
--- NOTE | 2018-10-01 12:26 | NUR ---
PT SITTING IN CHAIR-ALERT AND ORIENTED. PT HAD JUST FINISHED A COLA AND SAID IT HELPS HER STOMACH FEEL BETTER. PLEASANT VISIT, PT JAUNDTICE AND HOPES TO BE DC'D TOMORROW. SHE THANKED ME AGAIN FOR THE P.ETHANWL. I EXTENDED A BLESSING, WILL FOLLOW NEEDED
--- NOTE | 2018-10-01 16:48 | NUR ---
PT ON 2L NC, LUNG SOUNDS CLEAR WITH DIMINIHSED BASES. PT WITH INCREASED ABD PAIN, FEELS "GASSY", PAIN WELL CONTROLLED WITH OXYCODONE AND TYLENOL, NEW ORDER FOR MOTRIN. PT TOLERATING REGULAR DIET, DENIES NAUSEA. PT WITHOUT IV ACCESS. PT WITH 1+ EDEMA TO BLE. 1-2PA WITH FWW, DIFFICULTY GETTING OUT OF CHAIR THIS AM, SBA WHEN AMBULATING. VOIDING QS.
--- NOTE | 2018-10-01 19:40 | NUR ---
PATIENT SITTING UP IN HER ARMCHAIR IN HER ROOM AND VISITING WITH HER FAMILY WHILE WATCHING TV.
--- NOTE | 2018-10-01 21:57 | NUR ---
V/S AND I&O TAKEN AND CHARTED. 2 PA TO THE BEDSIDE COMMODE AND BACK TO BED. SIDE TABLE AND CALL LIGHT WITHIN REACH.
--- NOTE | 2018-10-01 22:31 | NUR ---
PATIENT IN BED AND EVENING MEDS AND TREATMENTS COMPLETE. PATIENT IS NOT READY TO GO TO SLEEP AND SAYS SHE IS AWAITING THE ARRIVAL OF ONE OF HER DAUGHTERS SHE HAS NOT SEEN IN A COUPLE YEARS. GIVEN 5MG OXYCODONE FOR 9/10 ABD AND RT/SHOULDER AND BACK PAIN.
--- NOTE | 2018-10-01 23:35 | NUR ---
ELIAS FROM RT LET ME KNOW PATIENT IS NOW ON HER HOME BIPAP WITH A 2L O2 BLEED IN.
--- NOTE | 2018-10-02 00:18 | NUR ---
PATIENT RESTING QUIETLY IN HER ROOM WITH BIPAP ON, EYES CLOSED AND RESPIRATIONS EVEN.
--- NOTE | 2018-10-02 01:46 | NUR ---
PATIENT CONTINUES TO REST QUIETLY ON HER BIPAP MACHINE. EYES CLOSED AND RESPIRATIONS REGULAR AND EVEN. DAUGHTER AT BEDSIDE.
--- NOTE | 2018-10-02 03:42 | NUR ---
PATIENT CONTINUES TO REST QUIETLY EYES CLOSED, ON HER BIPAP. DAUGHTER IS ASLEEP ON THE COUCH.
--- NOTE | 2018-10-02 05:09 | NUR ---
PATIENT SLEPT WELL MOST OF THE NIGHT SHE INFORMED ME. JUST GOT HER UP TO THE BEDSIDE COMMODE. PATIENT IS ITCHING AND HAS MADE HERSELF BLEED IN A FEW LITTLE PLACE ON HER ARMS AND BETWEEN HER BREASTS. PUT AN ALLYVEN ON THE BACK OF HER LEFT UPPER ARM. FAMILY WANTS MANUAL BLOOD PRESSURES ONLY. 25MG PO BENADRYL, 5MG OXYCODONE FOR 9/10 ABD AND RIGHT SHOULDER PAIN. PATIENT GOT A LOTION APPLIED TO BACK, ARMS, AND LEGS. FAMILY WANTS TO RESCHEDULE PATIENT'S CARE CONFERENCE WITH ESTEFANIA FROM 10AM TO 4PM TODAY. WILL PASS THIS ON TO DAYSHIFT.
--- NOTE | 2018-10-02 07:15 | NUR ---
BEDSIDE HANDOFF REPORT RECEIVD FROM RISK CONTROL FIELD REPRESENTATIVE RN. P TRESTING IN BED. PT REPORTING PAIN 7/10 TO ABD, GASSY FEELING, REQUESTING SODA, PROVIDED. PT DENIES OTHER NEEDS AT THIS TIME.
--- NOTE | 2018-10-02 07:58 | NUR ---
PT RESTING IN BED, PT DECLINING TO GET TO CHAIR THIS AM. PT RATING PAIN 7-8/10 TO ABD, IMNRPOING SLIGHTLY, COMES AND GOES. PT ON 2L NC, LUNG SOUNDS CLEAR AND DIMINISHED. PT DENIES NAUSEA, TOLERATING REGULAR DIET, BOWEL TONES ACTIVE. PT WITHOUT IV ACCESS. SKIN JUANDICED THROUGHT. EDEMA TO BLE IN ANKLES AND FEET, 2+, PULSES PALPABLE. PT DENIES OTHER NEEDS. DISCUSSED PLAN OF CARE AND PAIN MANAGEMENT.
--- NOTE | 2018-10-02 08:08 | NUR ---
RECIEVED A PHONE MESSAGE THIS AM AT 0505 FROM SOMEONE IN THE FAMILY STATING THAT THE CARE CONFERENCE THAT WE WERE GOING TO HAVE AT 10 NEEDS TO BE CHANGED TO 4 PM PT DAUGHTER SALIMA WHO IS COMING IN FROM [place] COULDN'T GET HER LAST EVENING PLANNED AND WILL ARRIVE AT NOON TODAY IN [place] AND THEY WOULD LIKE TO CHANGE THE MEETING UNTIL 4 PM TODAY STATING THAT NO DECISIONS ABOUT MICHELLE WOULD BE MADE UNTIL DAUGHTER SALIMA COULD BE INVOLVED.
--- NOTE | 2018-10-02 09:15 | NUR ---
MORNING MEDICATIONS ADMINISTERED. DISCUSSED ATENOLOL WITH DR. MILLER, CONTINUE MEDICATION FOR HR CONTROL. PT ASSISTED TO BSC AND BACK TO CHAIR, VOIDED. PT DENIES OTHER NEEDS AT THIS TIME.
--- NOTE | 2018-10-02 09:32 | NUR ---
KY CLARK RN AND MYSELF IN ROOM TO TALK WITH PT REGARDING CONTINUED STAY IN THE HOSPITAL. LET HER KNOW THAT SHE SHOULD PLAN ON BEING DC THIS AFTERNOON HER CONTINUED STAY AT THIS POINT IS NOT A MEDICAL NECESSITY TO BE IN AN ACUTE CARE HOSPITAL. PT STATED UNDERSTANDING, ALSO PT DAUGHTER ALPHONSO WAS PRESENT VIA PHONE AND ALSO STATED UNDERSTANDING. THEY DISCUSSIONS THAT THEY ARE WAITING TO TALK WITH ANOTHER DAUGHTER FROM [place] CAN TAKE PLACE AT HER HOME AND DECISIONS MADE FROM THERE. PT STATES SHE CAN'T WAIT TO GET HOME TO HER OWN BED. ALSO NEEDS A FRONT WHEELED WALKER AND A NEW NEBULIZER AND WOULD LIKE THESE TO COME FROM [facility].
--- NOTE | 2018-10-02 10:39 | NUR ---
PATIENT IS IN HER CHAIR. SHE ATE BREAKFAST AND IS ON HER COMPUTER. CALL LIGHT IN REACH. WATER REFRESHED. NO FURTHER NEEDS AT THIS TIME.
--- NOTE | 2018-10-02 11:17 | NUR ---
PT SITTING IN CHAIR, ON PHONE. PT REPORTS PAIN IS BETTER. PT DENIES OTHER NEEDS AT THIS TIME.
--- NOTE | 2018-10-02 11:40 | NUR ---
FAXED CHART NOTES INCLUDING FACE SHEET, ORDERS (1 FOR NEB AND 1 FOR FWW) H AND P, OP NOTE, CONSULT, PROG NOTES, PT AND OT EVAL AND NOTES TO [facility]. TALKED WITH STAFF FROM [facility] THEY STATED THIS SHOULDN'T BE A PROBLEM. RECIEVED FAX CONFIRMATION.
[2018-10-02] MEDS ORDERED: OXYCODONE HCL5 MG PO (13:18)
--- NOTE | 2018-10-02 13:29 | NUR ---
PT IS PREPARING TO DC TODAY. SHE SEEMS RESTED, AND MENTIONED THAT SHE SLEPT WELL LAST NIGHT FOR THE FIRST TIME IN SHE CAN'T REMEMBER. PT MENTIONED THAT SHE WAS GRATEFUL FOR THE VISITS WE HAD TOGETHER. EXTENDED A BLESSING, WILL FOLLOW NEEDED
--- NOTE | 2018-10-02 13:54 | NUR ---
FAXED CHART NOTES INCLUDING FACE SHEET, FACE TO FACE, ORDER, H AND P, CONSULT, OP NOTE, PROG NOTE, PT AND OT EVALS AND NOTES TO [facility]. TALKED WITH EFRAÍN FROM [facility], SHE SAID THEY WOULD LOOK AT EVERYTHING AND GET BACK TO US NEEDED. RECIEVED FAX CONFIRMATION.
--- NOTE | 2018-10-02 14:40 | NUR ---
PATIENT GIVEN 5MG OXYCODONE. PHARMACY AND PRIMARY CARE NURSE NOTIFIED THAT PATIENT IS READY FOR DISCHARGE INSTRUCTIONS.
--- NOTE | 2018-10-02 15:15 | NUR ---
MESSAGE WAS LEFT ON MY PHONE TO CALL [facility], CALLED AND SPOKE WITH WILBER WHO ASKED IF WE WERE DCING SOMEONE ON HOSPICE TODAY BY THE NAME OF ELEN. I STATED NO WE WERE NOT DCING HER ON HOSPICE SHE WANTS TO PURSUE ONCOLOGY CARE AND SEE IF THERE IS MORE THAT CAN BE DONE FOR HER OR NOT. WILBER EXPLAINED THAT THE NIECE ALBERT CALLED AND LEFT BOTH HER # AND #'S AND THAT SOMETHING HAD TO BE DONE BECAUSE SHE (THE PT) WAS SUPPOSE TO DC ON HOSPICE TODAY. I EXPLAINED TO WILBER ABOUT THE PT BEING DC ON HOME HEALTH TODAY THE PT HADN'T MADE THE DECISION IF SHE WANTED TO GO ON HOSPICE OR GO TO [facility] IN [place] YET. I DID TELL HER THAT AT SOME POINT THEY WOULD PROBABLY BE HEARING FROM THIS PT.
--- NOTE | 2018-10-02 15:23 | NUR ---
PATIENT IN BED RESTING. SHE USED THE COMMODE AND NOW GOT DRESSED. SHE IS WAITING FOR DISCHARGE TO HOME. CALL LIGHT IN REACH.NO FURTHER NEEDS AT THIS TIME.
--- NOTE | 2018-10-02 17:04 | NUR ---
PT KIATLYN PRICE WAS IN [place] AT [facility] REQUESTING TO SPEAK WITH ME. ALBERT WAS VERY UPSET ABOUT THE PLAN FOR DC AND THAT THEY DID NOT EVEN HAVE THE SPECIAL EQUIPMENT THAT THEY NEEDED FROM HOSPICE AND THAT SHE HAD CALLED HOSPICE AND THEY WERE VERY UPSET WITH ME BECAUSE I HAD NOT CONTACTED THEM BECAUSE SHE STATED THE PT WAS GOING HOME ON HOSPICE. I STOPPED HER AND POLITELY INFORMED HER THAT [place] AND I HAD SAT DOWN WITH THE PT AND HER DAUGHTER SEPTEMBER AND TALKED ABOUT THE PLAN FOR HER TO GO HOME AND THEY ARE GOOD WITH THE PLAN. WE TALKED ABOUT THAT THE HOSPICE DIDN'T NEED TO BE DECIDED UPON WHILE SHE WAS IN THE HOSPITAL IF SHE WANTED TO WAIT TO TALK WITH ONCOLOGY BUT THAT WE COULDN'T KEEP HER HERE UNTIL THAT TIME. SEPTEMBER AND SHE WERE OK WITH THIS. ALBERT THEN BEGAN TALKING ABOUT WHY I HADN'T CALLED AN AMBULANCE TO TAKE HER HOME BECAUSE THERE WERE 2 STEPS SHE HAD TO GO UP AT THE HOUSE. I EXPLAINED THAT I COULD GLADLY ARRANGE FOR AMBULANCE TRANSPORT BUT HER INSURANCE WAS PROBABLY NOT GOING TO PAY FOR THAT IT IS NOT MEDICALLY NECESSARY. ALBERT THEN BECAME VERY LOUD AND DISGRUNTLED AND THE CONVERSATION WAS ENDED. I WALKED AWAY FROM THE SITUATION AFTER TELLING HER I WAS SORRY SHE WAS FEELING THE WAY SHE WAS.
== END 2018-10-02 15:15 | DRG 420 ==
LOC: ED 18:27 → CCU 18:29 → MS 09-19 12:15
PROVIDERS: ADMIT Surgery
PROC: 0FB14ZX Excision of Right Lobe Liver, Percutaneous Endoscopic Approach, Diagnostic (ICD-10-PCS; principal; 2018-09-14 10:30)
PROC: 0FB44ZX Excision of Gallbladder, Percutaneous Endoscopic Approach, Diagnostic (ICD-10-PCS; 2018-09-14 10:30)
PROC: 02HV33Z Insertion of Infusion Device into Superior Vena Cava, Percutaneous Approach (ICD-10-PCS; 2018-09-14 10:30)
PROC: 5A09357 Assistance with Respiratory Ventilation, Less than 24 Consecutive Hours, Continuous Positive Airway Pressure (ICD-10-PCS; 2018-09-16)
DX: C23 Malignant neoplasm of gallbladder (principal); K83.1 Obstruction of bile duct; G93.41 Metabolic encephalopathy; K72.00 Acute and subacute hepatic failure without coma; J96.92 Respiratory failure, unspecified with hypercapnia; C78.7 Secondary malignant neoplasm of liver and intrahepatic bile duct; N17.9 Acute kidney failure, unspecified; I47.1 Supraventricular tachycardia; Z68.42 Body mass index [BMI] 45.0-49.9, adult; J70.4 Drug-induced interstitial lung disorders, unspecified; E66.01 Morbid (severe) obesity due to excess calories; J44.9 Chronic obstructive pulmonary disease, unspecified; G47.33 Obstructive sleep apnea (adult) (pediatric); I10 Essential (primary) hypertension; E03.9 Hypothyroidism, unspecified; M79.7 Fibromyalgia; M10.9 Gout, unspecified; E87.6 Hypokalemia; E83.42 Hypomagnesemia; E87.70 Fluid overload, unspecified; D63.0 Anemia in neoplastic disease; T50.3X5A Adverse effect of electrolytic, caloric and water-balance agents, initial encounter; Y92.239 Unspecified place in hospital as the place of occurrence of the external cause; Z99.81 Dependence on supplemental oxygen; Z87.891 Personal history of nicotine dependence; Z80.0 Family history of malignant neoplasm of digestive organs; Z88.2 Allergy status to sulfonamides; Z66 Do not resuscitate; Z79.51 Long term (current) use of inhaled steroids; Z79.899 Other long term (current) drug therapy
CPT/HCPCS: 00790; 36415; 36600; 51702; 71045; 71260; 74177; 76705; 80048; 80053; 80076; 81001; 82140; 82247; 82378; 82465; 82607; 82746; 82803; 82977; 83605; 83615; 83690; 83735; 83880; 84100; 84132; 84478; 84550; 85025; 85610; 85651; 86301; 86850; 86900; 86901; 86920; 87040; 87502; 88307; 88341; 88342; 93005; 93010; 94640; 94660; 97110; 97116; 97163; 97165; 97530; 97535; 99285-25; J0153; J0330; J0696; J1644; J1885; J1940; J2185; J2270; J2310; J2405; J3010; J3475; J3480; J7030; J7040; J7120; Q0177; Q9967

== ENCOUNTER 2018-10-03 16:03 | Emergency (ER) | payer MEDICARE ==
--- OUTSIDE RECORDS SUMMARY | ~2018-10-03 | XMS | Clinical Summary ---
Demographics + + + | Address | [address] | | | [place] [address] | + + + | Home Phone | | + + + | Preferred Language | Unknown | + + + | Marital Status | Unknown | + + + | Anglican Affiliation | Unknown | + + + | Race | Unknown | + + + | Ethnic Group | Unknown | + + + Author + + + | Organization | Unknown | + + + | Address | Unknown | + + + | Phone | Unavailable | + + + Care Team Providers + +------+ + | Care Kosher Sealer Name | Role | Phone | + +------+ + PP | Unavailable | + +------+ + Source Comments BEAU is fully live on both [facility] and [facility] InPatient.[facility] Allergies Not on File Current Medications Not on file Active Problems Not on file Social History + +-------+ +--------+------+ | Tobacco Use | Types | Packs/Day | Years | Date | | | | | Used | | + +-------+ +--------+------+ | Never Assessed | | | | | + +-------+ +--------+------+ + + + | Sex Assigned at | Date Recorded | | | | + + + | Not on file | | + + + Plan of Treatment + + + + + | Health Maintenance | Due Date | Last Done | Comments | + + + + + | Pneumococcal (Adult) | | | | | (1 of 2 - PCV13) | 2 | | | + + + + + | Influenza (Flu) | | | | | vaccination (#1) | 8 | | | + + + + + Results Not on filefrom Last 3 Months"
--- OUTSIDE RECORDS SUMMARY | ~2018-10-03 | XMS | Clinical Summary ---
Demographics + + + | Address | [address] | | | [place] [address] | + + + | Home Phone | | + + + | Preferred Language | Unknown | + + + | Marital Status | Unknown | + + + | Episcopal Affiliation | Unknown | + + + | Race | Unknown | + + + | Ethnic Group | Unknown | + + + Author + + + | Author | [facility] | + + + | Organization | [facility] | + + + | Address | Unknown | + + + | Phone | Unavailable | + + + Support + + + + + | Name | Relationship | Address | Phone | + + + + + | No,Contact | ECON | [address] | | | | | [place] | | | | | [address] | | + + + + + Care Team Providers + +------+ + | Care Data Virtualization Consultant Name | Role | Phone | + +------+ + | Deuce Langston DO | PP | | + +------+ + Allergies Not on File Current Medications Not [...] | + + + Plan of Treatment Not on file Results Not on filefrom Last 3 Months Insurance + +--------+ +--------+-------+---------+ | Payer | Benefi | Subscriber | Type | Phone | Address | | | t Plan | ID | | | | | | / | | | | | | | Group | | | | | + +--------+ +--------+-------+---------+ | [place] - [place] | [place] - | [id number] | Medica | | | | | MODA | | re | | | | | | | | | | | | | | | | | | | | | | | | | | | | | | | | | | | | | | | | [place] - | | | | | | | MODA | | | | | + +--------+ +--------+-------+---------+ + +--------+ +--------+ + + | Guarantor Name | Accoun | Relation to | Date | Phone | Billing Address | | | t Type | Patient | of | | | | | | | | | | + +--------+ +--------+ + + | MICHELLE MYRICK | Person | Self [birth year] | Home: | [facility] | | | al/Fam | | 1945 | [phone] | [place] | | | oscar | | | [phone] | [phone] | + +--------+ +--------+ + +"
--- OUTSIDE RECORDS SUMMARY | ~2018-10-03 | XMS | Clinical Summary ---
Demographics + + + | Address | [address] | | | [place] [address] | + + + | Home Phone | | + + + | Preferred Language | Unknown | + + + | Marital Status | Unknown | + + + | Yazidism Affiliation | Unknown | + + + | Race | Unknown | + + + | Ethnic Group | Unknown | + + + Author + + + | Organization | Unknown | + + + | Address | Unknown | + + + | Phone | Unavailable | + + + Care Team Providers + +------+ + | Care Spray Mixer Name | Role | Phone | + +------+ + PP | Unavailable | + +------+ + Source Comments BEAU is fully live on both [facility] and [facility] InPatient.[facility] Allergies Not on File Current Medications Not [...]
--- OUTSIDE RECORDS SUMMARY | ~2018-10-03 | XMS | Clinical Summary ---
Demographics + + + | Address | [address] | | | [place] [address] | + + + | Home Phone | | + + + | Preferred Language | Unknown | + + + | Marital Status | Unknown | + + + | Yarsanism Affiliation | Unknown | + + + | Race | Unknown | + + + | Ethnic Group | Unknown | + + + Author + + + | Author | [facility] | + + + | Organization | [facility] | + + + | Address | Unknown | + + + | Phone | Unavailable | + + + Support + + + + + | Name | Relationship | Address | Phone | + + + + + | No,Contact | ECON | [address] | | | | | [place] | | | | | [phone] | | + + + + + Care Team Providers + +------+ + | Care Operator Name | Role | Phone | + [...] MA - MODA | MA - | [id number] | Medica | | | | | [...] | Self | [birth year] | Home: | [facility] | | | al/Fam | | 1945 | [phone] | [place] | | | o[place] | | | [phone] | [phone] | + +--------+ +--------+ + +"
[~2018-10-03 16:03] MED LIST changes: +ADVAIR 250-501 EACH INH; +ATENOLOL-CHLOR1 EAC1 PO; +ATENOLOL25 MG PO; +BUDESONIDE0.5 MG/2 M INH; +FUROSEMIDE20 MG PO; +IPRAT-ALBUT 0.5-3 ML INH; +LACTULOSE20 GM/30 M PO; +MAGNESIUM400 M1 PO; +NYSTOP60 GM TOP; +OXYCODONE HCL5 MG PO; +POTASSIUM CHLO10 ME1 PO; +TYLENOL EXTRA500 MG PO; +VITAMIN D5000 UNIT PO; +XIFAXAN550 MG PO; +ZYRTEC10 MG PO
--- OUTSIDE RECORDS SUMMARY | 2018-10-03 16:06 | XMS ---
PreManage Notification: MICHELLE MYRICK Security Student Counselor Events No recent Security Events currently on file CRITERIA MET - [facility] - Has Care Guidelines - [facility] - 2 Visits in 30 Days CARE PROVIDERS ANUPAM SARAH Internal Medicine 09/23/2018-Current PHONE: Unknown Saw Primary Care 11/10/2014-Current Amrik ADHIKARI PHONE: Unknown Alise Lyon MD Primary Care Current PHONE: Unknown Nicholas has no Care Guidelines for this patient. Care History Medical/Surgical 09/23/2018 [facility] - Patient is currently established with [facility]. If patient is seen in the ED during business hours. Please contact [facility] at [facility]. Care Recommendation: This patient has had 5 or more Emergency Department visits in the last 12 months.\T\nbsp; Patient requires education on the scope and purpose of the ED as an acute care provider not a Primary Care Provider and should not be utilized for chronic conditions.\T\nbsp; These are guidelines and the provider should exercise clinical judgment when providing care. E.D. VISIT COUNT (12 MO.) 2 DEJON Wilson TOTAL 2 NOTE: Visits indicate total known visits. ED/UCC VISIT TRACKING (12 MO.) 10/03/2018 16:04 [facility] TYPE: Emergency COMPLAINT: - SHOULDER PAIN 09/12/2018 18:28 [facility] TYPE: Emergency COMPLAINT: - ALT LOC INPATIENT VISIT TRACKING (12 MO.) 09/13/2018 00:28 [facility] TYPE: Medical Surgical COMPLAINT: - ACUTE CHOLECYSTITIS DIAGNOSES: - Family history of malignant neoplasm of digestive organs - joint terminal attack controller (current) use of inhaled steroids - Drug-induced interstitial lung disorders, unspecified - Supraventricular tachycardia - Morbid (severe) obesity due to excess calories - Essential (primary) hypertension - Chronic obstructive pulmonary disease, unspecified - Essential (primary) hypertension - Acute kidney failure, unspecified - Personal history of nicotine dependence - Drug-induced interstitial lung disorders, unspecified - Malignant neoplasm of gallbladder - Acute kidney failure, unspecified - Obstructive sleep apnea (adult) (pediatric) - Metabolic encephalopathy - Secondary malignant neoplasm of liver and intrahepatic bile duct - Adverse effect of electrolytic, caloric and water-balance agents, initial encounter - Fibromyalgia - Other joint terminal attack controller (current) drug therapy - Secondary malignant neoplasm of liver and intrahepatic bile duct - Do not resuscitate - Hypokalemia - Hypothyroidism, unspecified - Hypokalemia - Body mass index (BMI) 45.0-49.9, adult - Calculus of gallbladder with acute cholecystitis without obstruction - Other mcc (current) drug therapy - Allergy status to sulfonamides status - Family history of malignant neoplasm of digestive organs - Unspecified place in hospital as the place of occurrence of the external cause - Fibromyalgia - Hypomagnesemia - Malignant neoplasm of gallbladder - Anemia in neoplastic disease - Allergy status to sulfonamides status - Acute and subacute hepatic failure without coma - Fluid overload, unspecified - Chronic obstructive pulmonary disease, unspecified - joint terminal attack controller (current) use of inhaled steroids - Dependence on supplemental oxygen - Dependence on supplemental oxygen - Anemia in neoplastic disease - Adverse effect of electrolytic, caloric and water-balance agents, initial encounter - Supraventricular tachycardia - Obstruction of bile duct - Metabolic encephalopathy - Gout, unspecified - Respiratory failure, unspecified with hypercapnia - Obstruction of bile duct - Unspecified place in hospital as the place of occurrence of the external cause - Obstructive sleep apnea (adult) (pediatric) - Hypomagnesemia - Respiratory failure, unspecified with hypercapnia - Gout, unspecified - Do not resuscitate - Personal history of nicotine dependence - Hypothyroidism, unspecified - Fluid overload, unspecified - Acute and subacute hepatic failure without coma - Body mass index (BMI) 45.0-49.9, adult - Morbid (severe) obesity due to excess calories [email or web address]
== END 2018-10-03 22:37 | disposition home or self-care (01) ==
LOC: ED 16:03
PROC: 0RSKXZZ Reposition Left Shoulder Joint, External Approach (ICD-10-PCS; principal; 2018-10-03)
PROC: 0T9B70Z Drainage of Bladder with Drainage Device, Via Natural or Artificial Opening (ICD-10-PCS; 2018-10-03)
DX: S43.015A Anterior dislocation of left humerus, initial encounter (principal); K83.1 Obstruction of bile duct; N17.9 Acute kidney failure, unspecified; C22.9 Malignant neoplasm of liver, not specified as primary or secondary; I11.0 Hypertensive heart disease with heart failure; I50.9 Heart failure, unspecified; J45.909 Unspecified asthma, uncomplicated; Z87.891 Personal history of nicotine dependence; Z88.2 Allergy status to sulfonamides; Z79.899 Other long term (current) drug therapy; W19.XXXA Unspecified fall, initial encounter; Y92.009 Unspecified place in unspecified non-institutional (private) residence as the place of occurrence of the external cause
CPT/HCPCS: 23650; 51702; 71045; 73030; 80053; 82140; 83690; 85025; 85610; 85730; 99284-25; J2704; J3010; J7030; J7040